=== PATIENT | male | born 1950 | race Caucasian/White ===

== ENCOUNTER 2017-08-29 13:32 | Inpatient (IN) | payer MEDICARE, BC ==
[2017-08-29] MEDS ORDERED: Cefepime 2 GM/10 ML SYR ONE (15:04)
[2017-08-29 15:17] LABS: Troponin I 0.021 ng/mL (< 0.028)
[2017-08-29] MEDS ORDERED: Diabetic Tussin 200 MG/10 ML UDCUP PO PRN (18:00)
[2017-08-29] MEDS ORDERED: Cepastat Lozenges 1 LOZ PO PRN (18:02)
[2017-08-29] MEDS ORDERED: cefTRIAXone\\ROCEPHIN 1 GM in Sodium Chloride 0.9% 100 ML IVPB SCH (18:15)
[2017-08-29] MEDS ORDERED: Ondansetron ODT 4 MG TAB PO PRN (19:47)
[2017-08-29] MEDS ORDERED: Senokot 8.6 MG TAB PO PRN (19:47)
[2017-08-29] MEDS ORDERED: Acetaminophen 325 MG TAB PO PRN (19:47)
[2017-08-29] MEDS ORDERED: Calcium Carbonate 500 MG ChewTAB PO PRN (19:47)
[2017-08-29] MEDS ORDERED: Ondansetron HCl/PF 4 MG/2 ML Vial IVP PRN (19:47)
[2017-08-29] MEDS ORDERED: Sodium Chloride 0.9% 1,000 ML IV SCH (20:00)
[2017-08-29] MEDS ORDERED: hydrALAZINE 20 MG/ML VIAL SLOW IVP PRN (20:05)
--- NOTE | 2017-08-29 20:19 | PDOC.EVN ---
Event Note - Event Note Event Note: Patient seen and examined. Orders completed. IMPRESSION: 1. Acute on Chronic Hypoxic Resp failure/Sepsis with acute organ dysfunction due to Influenza A 2. Pulm fibrosis on chronic steroids 3. Rhabdomyolysis
[2017-08-29] MEDS: guaiFENesin ER 600 MG TAB PO SCH (21:59)
[2017-08-29] MEDS: Famotidine 20 MG TAB PO SCH (21:59)
[2017-08-29] MEDS: Sodium Chloride 0.9% 1,000 ML IV SCH (21:59)
[2017-08-29] MEDS: Diabetic Tussin 200 MG/10 ML UDCUP PO PRN (22:14)
[2017-08-29] MEDS: Doxycycline 100 MG CAP PO SCH (22:14)
[2017-08-29] MEDS: Oseltamivir 75 MG CAP PO SCH (22:15)
[2017-08-29] MEDS: cefTRIAXone\\ROCEPHIN 1 GM, Syringe 0.4 ML in Sterile Water 9.6 ML SLOW IVP SCH (22:16)
[2017-08-29 22:21] VITALS: BMI 30.5
[2017-08-30] MEDS: Sodium Chloride 0.9% 1,000 ML IV SCH ×3 (05:09→20:09)
[2017-08-30 05:11] LABS: #Lymphocytes 0.8 thou/uL (1.20-3.40); #Monocytes 0.8 thou/uL (0.11-0.59); #Neutrophils 7.7 thou/uL (1.40-6.50); %Eosinophils 0.2 % (0.0-10.0); %Lymphocytes 8.7 % (21.0-51.0); %Monocytes 8.4 % (0.0-10.0); %Neutrophils 82.8 % (42.0-75.0); Hemoglobin 13.5 g/dL (14.0-18.0); Mean Corpuscular HGB CONC 31.3 g/dL (32.0-36.0); Mean Corpuscular Hemoglobin 27.6 pg (27.0-31.0); Mean Corpuscular Volume 88.4 fl (80.0-94.0); Mean Platelet Volume 8.5 fL (7.4-10.4); Platelet Count 187 thou/uL (130-400); RBC Distribution Width 15.4 % (11.5-14.5); White Blood Cell (WBC) Count 9.3 thou/uL (4.8-10.8)
[2017-08-30 05:21] LABS: ALT (SGPT) 17 U/L (8-55); AST (SGOT) 29 U/L (5-34); Albumin 3.7 g/dL (3.4-4.8); Alkaline Phosphatase 64 U/L (40-150); Anion Gap 14 mmol/L (10-20); BUN (Urea Nitrogen) 24 mg/dL (8.4-25.7); Bilirubin, Total 0.2 mg/dL (0.2-1.2); CK (CPK) 1038 U/L (30-200); Calc. Creatinine Clearance 113 mL/min (70-130); Calcium 9.3 mg/dL (7.8-10.44); Carbon Dioxide 21 mmol/L (23-31); Chloride 107 mmol/L (98-107); Estimated GFR-MDRD 78; Globulin 3.3 g/dL (2.4-3.5); Glucose 168 mg/dL (80-115); Magnesium 2.1 mg/dL (1.6-2.6); Phosphorus 2.9 mg/dL (2.3-4.7); Potassium 4.2 mmol/L (3.5-5.1); Sodium 138 mmol/L (136-145)
--- NOTE | 2017-08-30 05:54 | HP ---
DATE OF ADMISSION: 08/29/2017 The patient was seen and examined on 08/29/2017. PRIMARY CARE PHYSICIAN: Dr. Sharla Topete. PRIMARY COMMERCIAL SINGER: In [place]. CHIEF COMPLAINT: Shortness of breath. HISTORY OF PRESENT ILLNESS: The patient is a 67-year-old male with pulmonary fibrosis on 4 liter oxy gen continuously and chronic steroids, presented to the emergency room at [facility] with shortness of breath along with fever. Over the last 3-4 days, patient has generalized fatigue along with worsening shortness of breath. He also had some cough productive of thick whitish phlegm. Over the last two days, the patient has on and off fever with intermittent chills. He denies any sick contacts. No nausea, vomiting, diarrhea, dysuria, hematuria, urgency or skin rash reported. No alteration in mentation reported. In the emergency room at [place], his initial vital signs showed temperature 100.1 with a pulse rate of 122, respirations of 47 with blood pressure of 149/80 with O2 saturation of 73% on 4 liter nasal c annula. His chest x-ray was consistent with patchy perihilar airspace opacity. His Influenza testin g was positive for influenza A. He received Levaquin, Tamiflu, nebulizer treatment, Tylenol and Solu -Medrol 125 mg. Please note that his maximum temperature at the emergency room was 101.3. No blood cultures were drawn prior to antibiotics at the emergency room. PAST MEDICAL HISTORY: Pulmonary fibrosis. Per patient report, this was caused due to interaction be tween a chemotherapeutic drug for Hodgkin's lymphoma with antibiotic. PAST SURGICAL HISTORY: Inguinal hernia repair. The Hodgkins lymphoma was treated with chemotherapy, his last treatment was in 11/2016. ALLERGIES: No known drug allergies. CURRENT HOME MEDICATIONS: The patient is unable to recall all of his home medications. He takes pre dnisone 10 mg every day. SOCIAL HISTORY: Patient is a former smoker. Lives at home with his . No alcohol or drug use. He is full code. Makes his own decision. FAMILY HISTORY: Negative for premature coronary artery disease. REVIEW OF SYSTEMS: The following complete review of systems was negative, unless otherwise mentioned in the HPI or below: Constitutional: Weight loss or gain, ability to conduct usual activities. Skin: Rash, itching. Eyes: Double vision, pain. ENT/Mouth: Nose bleeding, neck stiffness, pain, tenderness. Cardiovascular: Palpitations, dyspnea on exertion, orthopnea. Respiratory: Shortness of breath, wheezing, cough, hemoptysis, fever or night sweats. Gastrointestinal: Poor appetite, abdominal pain, heartburn, nausea, vomiting, constipation, or diarr hea. Genitourinary: Urgency, frequency, dysuria, nocturia. Musculoskeletal: Pain, swelling. Neurologic/Psychiatric: Anxiety, depression. Allergy/Immunologic: Skin rash, bleeding tendency. PHYSICAL EXAMINATION: VITAL SIGNS: As discussed above. GENERAL: A 67-year-old male in mild respiratory distress, able to complete short sentences. HEENT: Head is atraumatic, normocephalic. Sclerae anicteric. Dry mucous membranes. No oral lesion . NECK: Supple, no JVD appreciated. No carotid bruit. LUNGS: Clear to auscultation bilaterally with scattered rales. There were minimal wheezing. Lungs were symmetrical. Trachea in midline. HEART: S1, S2 present. Regular rate and rhythm. Heart rate has improved. No heaves or pulsation. No significant murmurs appreciated. ABDOMEN: Soft, nontender, bowel sounds present, no rebound, guarding, no costovertebral angle tender ness. EXTREMITIES: No edema or calf tenderness. NEUROLOGIC: Grossly nonfocal, moves all four extremities. PSYCHIATRY: Alert, awake, oriented x3. SKIN: Warm and dry. LYMPH NODES: No palpable lymph nodes in the neck. PERIPHERAL VASCULAR: Radial pulses palpable bilaterally. MUSCULOSKELETAL: No joint swelling or tenderness. LABORATORY DATA AND X-RAY FINDINGS: CK was 1048. Initial troponin 0.031, repeat troponin 0.021. WB C was 16.1 with 19% bandemia. Chest x-ray by my review as discussed above. EKG by my review showed sinus tachycardia. IMPRESSION: 1. Sepsis with acute organ dysfunction secondary to influenza A. 2. Acute influenza A infection with suspected influenzae A pneumonia. 3. Hodgkin's lymphoma status post chemotherapy. 4. Pulmonary fibrosis with chronic respiratory failure on 4 liter oxygen. 5. Chronic immunosuppressants. Patient is on 10 mg prednisone on a daily basis. 6. Obesity with a BMI of 30.5. 7. Rhabdomyolysis secondary to Influenzae A infection. 8. Chronic kidney disease stage 3. 9. Elevated troponin secondary to demand ischemia. 10. Rhabdomyolysis due to influenza A. PLAN: 1. The patient will be monitored on the medical floor. There are no Intermediate Care Unit beds at this time. I think the patient has significantly improved with emergency treatment. It has been 6 h ours since he has received IV steroids. He already feels better. We will continue steroids, Tamiflu , empiric antibiotics. We will consult Dr. Fitzpatrick in a.m. We will repeat labs including CK in a.m. 2. Plan of care was discussed with the patient in detail and he stated understanding. 3. The patient will require 2-3 days for stabilization.
[2017-08-30] MEDS: Diabetic Tussin 200 MG/10 ML UDCUP PO PRN ×3 (06:07→17:50)
[2017-08-30] MEDS: Enoxaparin Sodium 40 MG/0.4 ML SYRINGE SC SCH (08:08)
[2017-08-30] MEDS: busPIRone HCl 5 MG TAB PO SCH (08:08)
[2017-08-30] MEDS: guaiFENesin ER 600 MG TAB PO SCH ×2 (08:08→20:03)
[2017-08-30] MEDS: Famotidine 20 MG TAB PO SCH ×2 (08:08→20:02)
[2017-08-30] MEDS ORDERED: Non-Formulary Item 1 EACH (Fluticasone/Vilanterol [Breo Ellipta 200-25 Mcg Inh] 1 EACH) IH SCH (09:00)
[2017-08-30] MEDS: Doxycycline 100 MG CAP PO SCH ×2 (09:10→20:02)
[2017-08-30] MEDS: Oseltamivir 75 MG CAP PO SCH ×2 (09:10→20:02)
[2017-08-30] MEDS: Mometasone/Formoterol 120 PUFF INHALER INH SCH ×2 (09:12→19:34)
[2017-08-30] MEDS ORDERED: Sodium Chloride 0.65% Nasal 44 ML BOT EA NARE PRN (11:49)
[2017-08-30] MEDS: Fluticasone Propionate Nasal Spray 16 gm Bottle NASAL SCH (14:03)
[2017-08-30] MEDS: cefTRIAXone\\ROCEPHIN 1 GM, Syringe 0.4 ML in Sterile Water 9.6 ML SLOW IVP SCH (20:03)
[2017-08-30] MEDS ORDERED: ALPRAZolam 0.25 MG TAB PO SCH (21:00)
--- NOTE | 2017-08-30 21:24 | PDOC.PN ---
- Subjective Encounter Start Date: 08/30/17 Encounter Start Time: 15:00 Patient seen and examined. Feels slightly better. Cough +. SOB on minimal exertion. No overnight events - Objective Resuscitation Status: Resuscitation Status FULL:Full Resuscitation MAR Reviewed: Yes Vital Signs & Weight: Vital Signs (12 hours) Temp Pulse Resp BP Pulse Ox 08/30/17 20:00 98.0 F 99 18 142/78 H 98 08/30/17 19:33 102 H 22 H 96 08/30/17 16:44 97.9 F 98 16 132/70 100 08/30/17 11:55 97.6 F 98 18 124/69 100 Weight Weight 231 lb 5 oz I&O: 08/29/17 08/30/17 08/31/17 06:59 06:59 06:59 Intake Total 2100 2300 Output Total 300 1150 Balance 1800 1150 Result Diagrams: 08/31/17 05:16 08/31/17 05:16 Phys Exam - Physical Examination Constitutional: NAD Respiratory: no wheezing, no rhonchi Coarse BS B/L, Symmetrical. Scat rales at bases Cardiovascular: RRR, no significant murmur, no rub no heaves/pulsations Gastrointestinal: soft, non-tender, no distention, positive bowel sounds Musculoskeletal: no edema Neurological: non-focal, normal sensation, moves all 4 limbs Psychiatric: A&O x 3 Dx/Plan - Plan DVT proph w/lovenox, DVT proph w/SCDs IMPRESSION: 1. Sepsis with acute organ dysfunction secondary to influenza A. 2. Acute influenza A infection with suspected influenzae A pneumonia. 3. Hodgkin's lymphoma status post chemotherapy. 4. Pulmonary fibrosis with chronic respiratory failure on 4 liter oxygen. 5. Chronic immunosuppressants. Patient is on 10 mg prednisone on a daily basis. 6. Obesity with a BMI of 30.5. 7. Rhabdomyolysis secondary to Influenzae A infection. 8. Chronic kidney disease stage 3. 9. Elevated troponin secondary to demand ischemia. PLAN: * Await Pulm input * Cont to monitor * AM labs * CK improving * Cont current meds as below Review of Systems - Review of Systems Cardiovascular: negative: chest pain, palpitations, orthopnea, paroxysmal nocturnal dyspnea, edema, light headedness Gastrointestinal: negative: Nausea, Vomiting, Abdominal Pain, Diarrhea, Constipation, Melena, Hematochezia - Medications/Allergies Allergies/Adverse Reactions: Allergies Allergy/AdvReac Type Severity Reaction Status Date / Time No Known Drug Allergies Allergy Verified 08/29/17 20:36 Medications: Current Medications Acetaminophen (Tylenol) 650 mg PO Q4H PRN PRN Reason: Headache/Fever or Pain Albuterol/Ipratropium (Duoneb) 3 ml NEB [id number] [facility] Last Admin: 08/30/17 19:33 Dose: 3 ml Albuterol/Ipratropium (Duoneb) 3 ml NEB [id number] PRN PRN Reason: SOB &/or Wheezing Alprazolam (Xanax) 0.25 mg PO HS [facility] Last Admin: 08/30/17 20:02 Dose: 0.25 mg Buspirone HCl (Buspar) 5 mg PO DAILY [facility] Last Admin: 08/30/17 08:08 Dose: 5 mg Calcium Carbonate (Tums) 1,000 mg PO Q4H PRN PRN Reason: Heartburn or Indigestion Diltiazem HCl (Cardizem Cd) 120 mg PO DAILY [facility] Last Admin: 08/30/17 08:08 Dose: 120 mg Doxycycline Hyclate (Vibramycin) 100 mg PO BID [facility] Last Admin: 08/30/17 20:02 Dose: 100 mg Enoxaparin Sodium (Lovenox) 40 mg SC 0900 [facility] Last Admin: 08/30/17 08:08 Dose: 40 mg Famotidine (Pepcid) 20 mg PO BID [facility] Last Admin: 08/30/17 20:02 Dose: 20 mg Fluticasone Propionate (Flonase Nasal [place]) 0 gm NASAL Q24H [facility] Last Admin: 08/30/17 14:03 Dose: 2 spr Guaifenesin (Mucinex) 600 mg PO Q12HR [facility] Last Admin: 08/30/17 20:03 Dose: 600 mg Guaifenesin (Robitussin Sf) 200 mg PO Q4H PRN PRN Reason: Cough Last Admin: 08/30/17 17:50 Dose: 200 mg Hydralazine HCl (Apresoline) 10 mg SLOW IVP Q4H PRN PRN Reason: SBP Greater Than 180 Ceftriaxone Sodium 1 gm/ (Syringe 0.4 ml/ Sterile Water) 10 mls @ 120 mls/hr SLOW IVP Q24HR [facility] Last Admin: 01/03/18 20:03 Dose: 10 mls Sodium Chloride (Normal Saline 0.9%) 1,000 mls @ 125 mls/hr IV .Q8H [facility] Last Admin: 08/30/17 20:09 Dose: 1,000 mls Methylprednisolone Sodium Succinate (Solu-Medrol) 20 mg IVP Q8HR [facility] Last Admin: 08/30/17 13:23 Dose: 20 mg Mometasone Furoate/Formoterol Fumar (Dulera 200 Mcg/5 Mcg Inhaler) 2 puff INH BID-RT [facility] Last Admin: 08/30/17 19:34 Dose: 2 puff Ondansetron HCl (Zofran Odt) 4 mg PO Q6H PRN PRN Reason: Nausea/Vomiting Ondansetron HCl (Zofran) 4 mg IVP Q6H PRN PRN Reason: Nausea/Vomiting Oseltamivir Phosphate (Tamiflu) 75 mg PO BID [facility] Stop: 09/02/17 21:01 Last Admin: 08/30/17 20:02 Dose: 75 mg Senna (Senokot) 2 tab PO HSPRN PRN PRN Reason: Constipation Sodium Chloride (Flush - Normal Saline) 10 ml IVF Q12HR [facility] Last Admin: 08/30/17 08:08 Dose: Not Given Sodium Chloride (Flush - Normal Saline) 10 ml IVF PRN PRN PRN Reason: Saline Flush Last Admin: 08/30/17 13:23 Dose: 10 ml Sodium Chloride ([place] Nasal Keystone 0.65%) 0 ml EA NARE TID PRN PRN Reason: Nasal Congestion Last Admin: 08/30/17 14:03 Dose: 2 spr Throat Lozenges (Cepastat Lozenges) 1 victorino PO Q2H PRN PRN Reason: Sore Throat
--- NOTE | 2017-08-30 23:55 | CON ---
DATE OF CONSULTATION: 08/30/2017 SERVICE: Pulmonary Medicine. REASON FOR CONSULTATION: Respiratory failure. HISTORY OF PRESENT ILLNESS: The patient is a 67-year-old white male with past medical history signif icant for lymphoma. Around that time, he had a respiratory infection. He might have also had a side effect from one of his chemotherapeutic agents. He was put on some strong antibiotics. One of thes e things potentially precipitated an event in which his lungs were replaced by scar tissue. He devel oped idiopathic pulmonary fibrosis. He is not currently on any medications for that. That being tatiana d, has been followed for the past six months and apparently he has had slow recovery of lung function . He has had multiple pulmonary function studies in the outpatient setting and based on his history, things are improving a little bit. In this setting, he had a 3-4 day history of increasing fever, c hills, cough, and rattle in the chest. His son, who is blind, was sick with a respiratory illness. His son's girlfriend, since he has been in the hospital, also came down with influenza A. Since bein g in the hospital, the patient has had a significant improvement in breathing. He indicates, he is r oughly 80% back to baseline. He is still touch more short-winded whenever he is getting around than baseline. His strength and energy have improved as has his malaise. PAST MEDICAL HISTORY: 1. Chronic hypoxic respiratory failure, requiring 4 liters oxygen continuous. 2. Pulmonary fibrosis. 3. Hodgkin's lymphoma. PAST SURGICAL HISTORY: Inguinal hernia repair. ALLERGIES: No known drug allergies. MEDICATIONS: List of inpatient medications was reviewed. I have discontinued his IV fluids. Otherw ise, a couple small adjustments were made. SOCIAL HISTORY: Negative for alcohol, tobacco or illicit drug use. He is a former smoker and has a roughly [id number] history of smoking. No illicit drug use. FAMILY HISTORY: Noncontributory. REVIEW OF SYSTEMS: General, head, ears, eyes, nose, throat, cardiovascular, respiratory, GI, , mus culoskeletal, neurologic and skin is negative except as mentioned in the HPI. PHYSICAL EXAMINATION: VITAL SIGNS: Currently afebrile. Pulse 99, blood pressure 142/78, respirations 18, saturation 98% o n 4 liters nasal cannula. GENERAL: The patient is awake and alert, in no apparent distress. He is almost continuously coughin g, but not bringing up any sputum. LUNGS: Excellent air entry. There is no prolonged expiratory phase. I do not appreciate any wheezi ng. Crackles and rhonchi are both present. HEART: Normal rate, regular. ABDOMEN: Soft, nontender, nondistended. Bowel sounds are positive. MUSCULOSKELETAL: No cyanosis or clubbing. No pitting in the bilateral lower extremities. NEUROLOGIC: Grossly nonfocal. LABORATORY DATA: WBC 9.3, hemoglobin 13.5, platelets 187,000. A pH 7.44, pCO2 of 38, pO2 176. Basi c metabolic profile and liver function studies are unremarkable. Troponin is negative x1. BNP is al so unremarkable. Blood culture x2 is negative. Influenza A is positive, B is negative. ASSESSMENT: 1. Chronic hypoxic respiratory failure. 2. Community-acquired pneumonia, secondary to influenza A. 3. Non-ST elevation myocardial infarction, likely secondary to demand. PLAN: We will deescalate his steroids. These can be reduced to his home dose after a total duration of 7 days. Tamiflu should be continued to completion. IV fluids will be discontinued as the patien t is tolerating p.o. just fine. At this point, the patient is close enough back to baseline that fro m a purely respiratory perspective, I think it would be reasonable to transition him out of the [facility] as he feels so inclined in the morning. If he remains in house, I will continue to follow.
[2017-08-31 05:40] LABS: #Monocytes 1.6 thou/uL (0.11-0.59); #Neutrophils 13.4 thou/uL (1.40-6.50); %Basophils 0.1 % (0.0-1.0); %Eosinophils 0.2 % (0.0-10.0); %Lymphocytes 6.1 % (21.0-51.0); %Monocytes 9.8 % (0.0-10.0); %Neutrophils 83.9 % (42.0-75.0); Mean Corpuscular HGB CONC 31.2 g/dL (32.0-36.0); Mean Corpuscular Hemoglobin 27.5 pg (27.0-31.0); Mean Corpuscular Volume 88.1 fl (80.0-94.0); Mean Platelet Volume 8.7 fL (7.4-10.4); Platelet Count 213 thou/uL (130-400); RBC Distribution Width 15.3 % (11.5-14.5); Red Blood Cell (RBC) Count 4.72 mill/uL (4.70-6.10); White Blood Cell (WBC) Count 15.9 thou/uL (4.8-10.8)
[2017-08-31 06:02] LABS: ALT (SGPT) 18 U/L (8-55); AST (SGOT) 32 U/L (5-34); Albumin 3.4 g/dL (3.4-4.8); Alkaline Phosphatase 69 U/L (40-150); Anion Gap 13 mmol/L (10-20); BUN (Urea Nitrogen) 26 mg/dL (8.4-25.7); Bilirubin, Total Less than 0.2 mg/dL (0.2-1.2); CK (CPK) 882 U/L (30-200); Calc. Creatinine Clearance 102 mL/min (70-130); Calcium 9.2 mg/dL (7.8-10.44); Carbon Dioxide 21 mmol/L (23-31); Chloride 114 mmol/L (98-107); Estimated GFR-MDRD 69; Globulin 3.2 g/dL (2.4-3.5); Glucose 159 mg/dL (80-115); Potassium 4.2 mmol/L (3.5-5.1); Protein, Total 6.6 g/dL (5.8-8.1); Sodium 144 mmol/L (136-145)
[2017-08-31] MEDS: Mometasone/Formoterol 120 PUFF INHALER INH SCH (07:26)
[2017-08-31] MEDS ORDERED: predniSONE 20 MG TAB PO SCH (08:00)
[2017-08-31] MEDS: busPIRone HCl 5 MG TAB PO SCH (08:24)
[2017-08-31] MEDS: Famotidine 20 MG TAB PO SCH (08:24)
[2017-08-31] MEDS: guaiFENesin ER 600 MG TAB PO SCH (08:25)
[2017-08-31] MEDS: Oseltamivir 75 MG CAP PO SCH ×2 (08:25→18:28)
[2017-08-31] MEDS: Doxycycline 100 MG CAP PO SCH (08:25)
[2017-08-31] MEDS: Enoxaparin Sodium 40 MG/0.4 ML SYRINGE SC SCH (08:26)
[2017-08-31] MEDS ORDERED: Cefdinir 300 MG CAP PO SCH (09:00)
[2017-08-31] MEDS: Fluticasone Propionate Nasal Spray 16 gm Bottle NASAL SCH (12:01)
[2017-08-31 16:27] VITALS: BP 135/74; TEMP 98
--- NOTE | 2017-08-31 17:07 | PRG ---
DATE OF SERVICE: 08/31/2017 SERVICE: Pulmonary Medicine. INTERVAL HISTORY: Mr. Rene actually feels fantastic this morning. He denies any current fevers or chills. He is coughing, but the sputum is becoming less frequent and less severe. It is breaking up a little bit more and he is finding and easier gets this stuff out. It is also clearing out a littl e bit. As such, he is interested in getting out of the hospital as soon as possible. I think it is perfectly reasonable as there was nothing that we are currently doing for him that we cannot continue in the outpatient setting. PHYSICAL EXAMINATION: VITAL SIGNS: Afebrile, pulse 101, blood pressure 107/63, respirations 20, and saturation 98% on 4 li ters nasal cannula. GENERAL: The patient is awake, alert, in no apparent distress. LUNGS: Decent air entry. There is no prolonged expiratory phase, rhonchi are much improved. Crackl es are still present. HEART: Normal rate, regular. ABDOMEN: Soft, nontender, nondistended. Bowel sounds positive. MUSCULOSKELETAL: No cyanosis or clubbing. No pitting in the bilateral lower extremities. NEUROLOGIC: Grossly nonfocal. LABORATORY DATA: WBC 15.9, hemoglobin 13.0, and platelets 213,000. Neutrophil count is stable at 84 %. Chloride 114, sodium 144. BUN 26, creatinine 1.07. Basic metabolic profile is otherwise unremar kable. Liver function studies are unremarkable and the CK is down trending. Blood cultures x2 are n egative. Influenza A is positive. ASSESSMENT: 1. Chronic hypoxic respiratory failure. 2. Community-acquired pneumonia secondary to influenza A. 3. Pulmonary fibrosis secondary to treatment (antibiotic versus chemotherapy from a treatment for ly mphoma). 4. Non-ST elevation myocardial infarction secondary to demand. PLAN: At this point, I do think it is reasonable for the patient to be transitioned home from purely respiratory perspective. Tamiflu and antibiotics can be completed for 5-day duration. He already h as a referral to see me in the outpatient setting. He is to get back into pulmonary rehabilitation j ust as soon as he clear setting his virus, which should take an additional 5-7 days.
--- NOTE | 2017-08-31 17:39 | DIS ---
DATE OF DISCHARGE: 08/31/2017 DISCHARGE DISPOSITION: Home. FOLLOWUP: 1. Follow up with primary care physician, Sharla Topete DO, in 1 week. 2. Follow up with Pulmonary, Dr. Jason in 2-3 weeks. ALLERGIES: No known drug allergies. DISCHARGE MEDICATIONS: 1. Tamiflu 75 mg b.i.d. 2. Prednisone 20 mg b.i.d. #8. Patient was advised to resume 10 mg prednisone after 4 days. 3. Omnicef 300 mg b.i.d. #10. 4. Doxycycline 100 mg b.i.d. #10. The patient was advised to resume all other home medications including Xanax, BuSpar, Cardizem-CD, in halers, nebulizer treatments, and ranitidine. 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 Jason. The patient was seen and examined on the day of discharge. Denies any new complaints. No chest pain , shortness of breath, palpitations. BRIEF HOSPITAL COURSE: Patient is a 67-year-old male with pulmonary fibrosis on 4 liter oxygen and c hronic steroids, presented to the hospital with shortness of breath. His workup in the emergency beck m was consistent with influenza A with temperature of 100.1, pulse rate of 122 with O2 saturation of 73% on 4 liter nasal cannula. Please refer to the history and physical dated 08/29/2017 for further details. The patient was admitted to the hospital with a diagnosis of sepsis with acute organ dysfunction seco ndary to influenza A with suspected influenza A pneumonia. He was started on antibiotics along with Tamiflu and IV steroids with good improvement. He was evaluated by pulmonary, Dr. Jason yesterday. He has been cleared by Dr. Jason on the day of discharge. He also had mild rhabdomyolysis with C K of 1038 on admission and 882 today. Repeat BMP with CK after 1 week is recommended. Primary care physician is advised to follow. FINAL DIAGNOSES: 1. Sepsis with acute organ dysfunction secondary to influenza A infection with suspected influenza A pneumonia. 2. Pulmonary fibrosis. 3. Chronic respiratory failure on home oxygen at 4 liters. 4. Chronic steroid use for pulmonary fibrosis. The patient is currently on 10 mg prednisone. 5. Hodgkin's lymphoma status post chemotherapy. 6. Obesity with BMI of 30.5. 7. Rhabdomyolysis, probably secondary to influenza A. 8. Chronic kidney disease stage III. 9. Elevated troponins, probably secondary to demand ischemia. Plan of care was discussed with the patient in detail. He stated understanding. Total time coordinating the discharge of this patient was 33 minutes.
[2017-09-03] MEDS ORDERED: predniSONE 20 MG TAB PO SCH (08:00)
== END 2017-08-31 18:00 | disposition home or self-care (01) | DRG 871 ==
LOC: ERS 13:32 → ERHOLD 15:06 → T4-B 19:48
PROVIDERS: ADMIT Internal Medicine; ATTEND Internal Medicine
DX: A41.89 Other specified sepsis (principal); J10.01 Influenza due to other identified influenza virus with the same other identified influenza virus pneumonia; J96.21 Acute and chronic respiratory failure with hypoxia; I24.8 Other forms of acute ischemic heart disease; M62.82 Rhabdomyolysis; J70.3 Chronic drug-induced interstitial lung disorders; Z92.21 Personal history of antineoplastic chemotherapy; Z85.71 Personal history of Hodgkin lymphoma; R65.20 Severe sepsis without septic shock; Z99.81 Dependence on supplemental oxygen; Z79.52 Long term (current) use of systemic steroids; E66.9 Obesity, unspecified; Z68.30 Body mass index [BMI] 30.0-30.9, adult; N18.3 Chronic kidney disease, stage 3 (moderate); Z87.891 Personal history of nicotine dependence
CPT/HCPCS: 36415; 80053; 82550; 83735; 84100; 85025; 94640; 94760; 96374; A4216; J0692; J0696; J1650; J2920; J7506; J7620

== ENCOUNTER 2017-10-07 10:02 | Emergency (ER) | payer MEDICARE, BC ==
[2017-10-07 10:39] LABS: #Basophils 0.1 thou/uL (0.0-0.2); #Eosinphils 0.1 thou/uL (0.0-0.7); #Lymphocytes 1.8 thou/uL (1.20-3.40); #Monocytes 1.3 thou/uL (0.11-0.59); #Neutrophils 9.9 thou/uL (1.40-6.50); %Basophils 0.5 % (0.0-1.0); %Eosinophils 0.6 % (0.0-10.0); %Lymphocytes 13.8 % (21.0-51.0); %Monocytes 9.6 % (0.0-10.0); %Neutrophils 75.5 % (42.0-75.0); Hemoglobin 13.9 g/dL (14.0-18.0); Mean Corpuscular HGB CONC 32.2 g/dL (32.0-36.0); Mean Corpuscular Hemoglobin 28.1 pg (27.0-31.0); Mean Corpuscular Volume 87.4 fl (80.0-94.0); Platelet Count 181 thou/uL (130-400); RBC Distribution Width 15.6 % (11.5-14.5); Red Blood Cell (RBC) Count 4.94 mill/uL (4.70-6.10); White Blood Cell (WBC) Count 13.1 thou/uL (4.8-10.8)
--- NOTE | 2017-10-07 10:51 | RAD ---
PORTABLE AP CHEST: Date: 10/07/17 HISTORY: Dyspnea, shortness of breath. COMPARISON: 08/29/17. FINDINGS: Cardiac silhouette and pulmonary vasculature are within normal limits. There is accentuation of the b ronchovascular markings due to the shallow depth of inspiration and portable technique. However, ther e are more peripherally located increased interstitial densities bilaterally and greater at each lung base, which also appear to have been present on the prior exam and could be related to chronic inter stitial lung changes. No consolidation or pleural fluid is seen. No other interval change. IMPRESSION: Increased interstitial densities bilaterally, which may be reflective of the shallow depth of inspira tion and portable technique. Follow-up chest x-ray with better depth of inspiration would be helpful . POS: FANG
[2017-10-07 11:03] LABS: ALT (SGPT) 17 U/L (8-55); AST (SGOT) 16 U/L (5-34); Albumin 4.1 g/dL (3.4-4.8); Alkaline Phosphatase 75 U/L (40-150); Anion Gap 13 mmol/L (10-20); BUN (Urea Nitrogen) 17 mg/dL (8.4-25.7); Bilirubin, Total 0.4 mg/dL (0.2-1.2); CK (CPK) 60 U/L (30-200); Calc. Creatinine Clearance 0 mL/min (70-130); Calcium 9.8 mg/dL (7.8-10.44); Carbon Dioxide 25 mmol/L (23-31); Chloride 102 mmol/L (98-107); Estimated GFR-MDRD 76; Globulin 3.2 g/dL (2.4-3.5); Glucose 80 mg/dL (80-115); Lipase 23 U/L (8-78); Potassium 4.1 mmol/L (3.5-5.1); Protein, Total 7.3 g/dL (5.8-8.1); Sodium 136 mmol/L (136-145)
[2017-10-07 11:06] LABS: CKMB 1.7 ng/mL (0-6.6)
--- NOTE | 2017-10-07 12:57 | CT ---
CT ANGIOGRAM THORAX WITH IV CONTRAST AND 3D RECONSTRUCTIONS: Date: 10/07/17 HISTORY: Pulmonary fibrosis, Hodgkin's lymphoma, dyspnea. Patient complains of shortness of breath and right-s ided chest pain. Patient also states he felt a lump in right axilla. FINDINGS: No filling defects are seen in the pulmonary arteries to suggest a pulmonary embolus. Atherosclerotic calcifications and mild atherosclerotic plaque is seen in the thoracic aorta, but there is no eviden ce of an aortic dissection or aneurysm. Coronary artery calcifications are seen. There is no evidence of lymphadenopathy. A marker was placed over the site of patient's palpable abno rmality in the right axilla, and no mass, fluid collection, or lymphadenopathy is seen to correspond to area of palpable concern. There are emphysematous changes within the lungs bilaterally and there are diffuse increased intersti tial opacities bilaterally, having the appearance most suggestive of chronic interstitial fibrotic anuradha ng changes. No areas of honeycombing are appreciated. No discrete pulmonary nodule or mass is identif ied. There is increased density partially seen in the visualized portions of the gallbladder lumen, probab ly related to either gallbladder sludge or gallbladder calculi. IMPRESSION: 1. No CT evidence of a pulmonary embolus. 2. Atherosclerotic vascular calcifications in the thoracic aorta and coronary arteries. 3. Chronic interstitial lung changes and evidence of COPD. 4. No abnormality is seen to correspond to the region of palpable concern in the right axillary salome on. 5. Low density nodule in the right lobe of the thyroid gland measuring 11.0 mm. This can be further evaluated with nonemergent thyroid ultrasound examination. POS: FANG
[2017-10-07] MEDS ORDERED: ISOVUE-370 76%-LOCM 1 ML ONE (16:46)
--- NOTE | 2017-10-21 20:21 | EKG ---
Test Reason : SOB Blood Pressure : / mmHG Vent. Rate : 085 BPM Atrial Rate : 085 BPM P-R Int : 154 ms QRS Dur : 084 ms QT Int : 358 ms P-R-T Axes : 057 012 033 degrees QTc Int : 426 ms Normal sinus rhythm Normal ECG Confirmed by TRANG REZA MD ([id number]), image editor ARISTEO PITTS ([id number]) on 10/21/2017 8:20:29 PM Referred By: Confirmed By:TRANG REZA MD
== END 2017-10-07 12:00 | disposition home or self-care (01) ==
LOC: ERS 10:02
DX: B02.9 Zoster without complications (principal); J84.10 Pulmonary fibrosis, unspecified; Z99.81 Dependence on supplemental oxygen; Z87.891 Personal history of nicotine dependence; Z79.899 Other long term (current) drug therapy; Z79.82 Long term (current) use of aspirin
CPT/HCPCS: 36415; 71045; 71275; 80053; 82553; 83605; 83690; 83880; 84484; 85025; 87040; 87149; 87804; 93005

== ENCOUNTER 2017-10-27 16:41 | Inpatient (IN) | payer MEDICARE, BC ==
[~2017-10-27 16:41] MED LIST: ISOVUE-370 76%-LOCM 1 ML ONE
[2017-10-27] MEDS ORDERED: Lorazepam 2 MG/ML VIAL ONE (18:28)
[2017-10-27 19:11] LABS: #Lymphocytes 0.4 thou/uL (1.20-3.40); #Monocytes 0.1 thou/uL (0.11-0.59); %Eosinophils 0.4 % (0.0-10.0); %Monocytes 1.8 % (0.0-10.0); %Neutrophils 92.8 % (42.0-75.0); Hemoglobin 13.6 g/dL (14.0-18.0); Mean Corpuscular HGB CONC 32.3 g/dL (32.0-36.0); Mean Corpuscular Hemoglobin 28.5 pg (27.0-31.0); Mean Corpuscular Volume 88.3 fl (80.0-94.0); Mean Platelet Volume 8.1 fL (7.4-10.4); Platelet Count 180 thou/uL (130-400); RBC Distribution Width 15.8 % (11.5-14.5); Red Blood Cell (RBC) Count 4.76 mill/uL (4.70-6.10); White Blood Cell (WBC) Count 7.6 thou/uL (4.8-10.8)
[2017-10-27 19:33] LABS: Actual Bicarbonate (HCO3a) 23.3 mEq/L (22-26); CO2 Tension 37.8 mmHg (35.0-45.0); Hematocrit-ABG 43.2 % (42.0-52.0); Hemoglobin (Hb) 12.7 g/dL (14.0-18.0); O2 Tension (PaO2) 67.3 mmHg (80.0-100.0); pH, Arterial 7.41 (7.35-7.45)
[2017-10-27 19:36] LABS: Analyzer IN Cardio ER; Calcium, Ionized 1.2 mmol/L (1.12-1.30); Puncture Site RR
[2017-10-27 19:37] LABS: ALT (SGPT) 23 U/L (8-55); AST (SGOT) 22 U/L (5-34); Albumin 3.9 g/dL (3.4-4.8); Alkaline Phosphatase 64 U/L (40-150); Anion Gap 16 mmol/L (10-20); BUN (Urea Nitrogen) 13 mg/dL (8.4-25.7); Bilirubin, Total 0.2 mg/dL (0.2-1.2); Calc. Creatinine Clearance 0 mL/min (70-130); Calcium 9.1 mg/dL (7.8-10.44); Carbon Dioxide 19 mmol/L (23-31); Chloride 105 mmol/L (98-107); Estimated GFR-MDRD 85; Globulin 3.3 g/dL (2.4-3.5); Glucose 131 mg/dL (80-115); Lipase 13 U/L (8-78); Magnesium 2.3 mg/dL (1.6-2.6); Potassium 3.8 mmol/L (3.5-5.1); Protein, Total 7.2 g/dL (5.8-8.1); Sodium 136 mmol/L (136-145)
[2017-10-27 19:41] LABS: Troponin I Less than 0.010 ng/mL (< 0.028)
--- NOTE | 2017-10-27 22:51 | CT ---
CT ANGIOGRAM THORAX WITH IV CONTRAST AND 3D RECONSTRUCTIONS 10/27/17 HISTORY: Shortness of breath and congestion that started one day ago. Fever and chills. COMPARISON: 10/07/17. FINDINGS: There is suboptimal opacification of the pulmonary arteries due to timing of the contrast bolus. As t he result pulmonary embolus cannot be excluded based on this exam. The thoracic aorta is normal in caliber without evidence of an aortic dissection. There are vascular calcifications and atherosclerotic plaque seen within the coronary arteries as well as the thoracic a cyndee. Again noted are emphysematous changes within the lungs bilaterally as well as chronic interstitial anuradha ng changes similar to the prior study. There is no pleural fluid, and no discrete pulmonary nodule o r mass is appreciated. There is no evidence of lymphadenopathy. Visualized upper abdomen has a normal CT appearance. There is increased density in the T8 vertebral body which demonstrates characteristics most compatibl e with a hemangioma. No additional lytic or sclerotic osseous lesions are appreciated. IMPRESSION: 1. Suboptimal evaluation of the pulmonary arteries due to timing of the contrast bolus. A pulmon aleksander embolus cannot be excluded based on this exam. 2. Thoracic aorta is normal in caliber without evidence of an aortic dissection. Atherosclerotic vascular calcifications and plaque is present. Left vertebral artery arises from thoracic aorta, and there appears to be severe narrowing at the origin and proximally. 3. Chronic interstitial lung changes and evidence of COPD unchanged from prior study. POS: FANG
[2017-10-27 22:56] LABS: pH, Arterial 7.38 (7.35-7.45)
[2017-10-27 22:57] LABS: Base Excess (BEa) -1.9 mEq/L (0 (+/-) 2.5); CO2 Tension 40.1 mmHg (35.0-45.0); Hematocrit-ABG 44.5 % (42.0-52.0); Hemoglobin (Hb) 13.4 g/dL (14.0-18.0); O2 Tension (PaO2) 97.9 mmHg (80.0-100.0)
[2017-10-27 22:58] LABS: Analyzer IN Cardio ER; Calcium, Ionized 1.2 mmol/L (1.12-1.30); Puncture Site RR
[2017-10-28] MEDS ORDERED: Lorazepam 2 MG/ML VIAL SLOW IVP PRN (00:51)
[2017-10-28] MEDS ORDERED: Ondansetron HCl/PF 4 MG/2 ML Vial IVP PRN ×2 (00:52→00:59)
[2017-10-28] MEDS ORDERED: Acetaminophen 325 MG TAB PO PRN (00:52)
[2017-10-28] MEDS ORDERED: Ondansetron ODT 4 MG TAB SL PRN (00:52)
[2017-10-28] MEDS ORDERED: Milk Of Magnesia 30 ML UDCUP PO PRN (00:59)
[2017-10-28] MEDS ORDERED: Loperamide HCl 2 MG CAP PO PRN (00:59)
[2017-10-28] MEDS ORDERED: Senokot 8.6 MG TAB PO PRN (00:59)
[2017-10-28] MEDS ORDERED: HYDROcodone/Acetaminophen 5/325 mg Tablet PO PRN (00:59)
[2017-10-28] MEDS ORDERED: Mag-Al 1200 mg/1200 mg/30 ML UDCUP PO PRN (00:59)
[2017-10-28] MEDS ORDERED: Sodium Chloride 0.45% 1,000 ML IV SCH (01:00)
[2017-10-28] MEDS ORDERED: methylPREDNISolone Sod Succ/PF 125 MG/2 ML VIAL IVP SCH (01:00)
[2017-10-28 01:15] VITALS: BMI 30.9
[2017-10-28 04:34] LABS: #Lymphocytes 0.9 thou/uL (1.20-3.40); #Monocytes 0.1 thou/uL (0.11-0.59); #Neutrophils 3.1 thou/uL (1.40-6.50); %Basophils 0.2 % (0.0-1.0); %Eosinophils 0.5 % (0.0-10.0); %Lymphocytes 21.5 % (21.0-51.0); %Monocytes 2.6 % (0.0-10.0); %Neutrophils 75.2 % (42.0-75.0); Hemoglobin 12.8 g/dL (14.0-18.0); Mean Corpuscular HGB CONC 31.9 g/dL (32.0-36.0); Mean Corpuscular Hemoglobin 28.6 pg (27.0-31.0); Mean Corpuscular Volume 89.7 fl (80.0-94.0); Mean Platelet Volume 8.5 fL (7.4-10.4); Platelet Count 173 thou/uL (130-400); RBC Distribution Width 15.6 % (11.5-14.5); Red Blood Cell (RBC) Count 4.47 mill/uL (4.70-6.10); White Blood Cell (WBC) Count 4.1 thou/uL (4.8-10.8)
[2017-10-28 05:09] LABS: Anion Gap 11 mmol/L (10-20); BUN (Urea Nitrogen) 14 mg/dL (8.4-25.7); Calc. Creatinine Clearance 135 mL/min (70-130); Calcium 8.7 mg/dL (7.8-10.44); Carbon Dioxide 24 mmol/L (23-31); Chloride 107 mmol/L (98-107); Estimated GFR-MDRD Greater than 90; Glucose 126 mg/dL (80-115); Potassium 4.4 mmol/L (3.5-5.1); Sodium 138 mmol/L (136-145)
[2017-10-28] MEDS: methylPREDNISolone Sod Succ/PF 125 MG/2 ML VIAL IVP SCH ×2 (05:53→11:38)
--- NOTE | 2017-10-28 06:22 | HP ---
PRIMARY CARE PHYSICIAN: Sharla Topete D.O. REASON FOR ADMISSION: Acute on chronic hypoxic respiratory failure. HISTORY OF PRESENT ILLNESS: A 67-year-old male who has diagnosis of interstitial lung disease/pulmon aleksander fibrosis which was diagnosed last year in January/February. Patient was requiring at least 3-4 liters o f oxygen at home, but lately even he was using 6 liters of oxygen and his saturation was not improvin g, he was getting breathing treatment by himself at home without any significant improvement. He was feeling more and more shortness of breath. He was having difficulty talking as well because of shor tness of breath. Patient does have some low grade fever. Patient denies any pleuritic chest pain. He denies any sick exposures. He denies any flu-like illness. He denies any recent travel. He denies any lower extre mity edema or calf tenderness. He denies any hemoptysis. Patient has a diagnosis of pulmonary fibrosis because of interaction from chemotherapy for Hodgkin's lymphoma last year. The patient denies any UTI symptoms. He denies any constipation, diarrhea, amena na or hematochezia. ALLERGIES: No known drug allergy. CURRENT HOME MEDICATIONS: Aspirin 81 mg p.o. daily, Breo Ellipta one inhalation twice daily, prednis one 10 mg daily, buspirone 5 mg p.o. daily, azelastine nasal spray daily, Cardizem 120 two tablets da bismark, Xanax 0.25 mg twice daily, Zantac 150 mg p.o. daily, valacyclovir 500 mg p.o. daily. REVIEW OF SYSTEMS: The following complete review of systems was negative, unless otherwise mentioned in the HPI or below: Constitutional: Weight loss or gain, ability to conduct usual activities. Skin: Rash, itching. Eyes: Double vision, pain. ENT/Mouth: Nose bleeding, neck stiffness, pain, tenderness. Cardiovascular: Palpitations, dyspnea on exertion, orthopnea. Respiratory: Shortness of breath, wheezing, cough, hemoptysis, fever or night sweats. Gastrointestinal: Poor appetite, abdominal pain, heartburn, nausea, vomiting, constipation, or diarr hea. Genitourinary: Urgency, frequency, dysuria, nocturia. Musculoskeletal: Pain, swelling. Neurologic/Psychiatric: Anxiety, depression. Allergy/Immunologic: Skin rash, bleeding tendency. Please see my HPI for pertinent positive and negative. All other review of systems reviewed and nega tive except as mentioned in the HPI. PAST MEDICAL HISTORY: Congestive heart failure, EF not known, pulmonary fibrosis, Hodgkin's lymphoma , osteoarthritis, chronic respiratory failure with hypoxia on home oxygen. PAST SURGICAL HISTORY: Hodgkin's lymphoma treated with chemotherapy and left-sided inguinal hernia r epair. PAST PSYCHIATRIC HISTORY: Anxiety disorder. SOCIAL HISTORY: Patient is . He lives at home with his . He is a former smoker, but he quit smoking lately. He denies any alcohol abuse. He denies any other illicit drug abuse. FAMILY HISTORY: No strong family history of premature coronary artery disease, stroke or cancer. EMERGENCY ROOM COURSE: Patient is given Levaquin 750 mg, sodium chloride 1 liter and Ativan 1 mg IV. PHYSICAL EXAMINATION: VITAL SIGNS: On arrival, blood pressure 155/89, pulse 112, respiratory rate 35, temperature 98.8, sa turation 93% on 4 liter oxygen, weight 105.2 kilograms. GENERAL: The patient is currently alert, awake, no obvious acute distress. Patient requiring BiPAP to maintain oxygen saturation. HEAD: Normocephalic, atraumatic. EYES: Pupils round, reactive to light. Extraocular muscle intact. ENT: Oropharynx within normal limits. Moist mucous membranes. No oral lesion, no pharyngeal erythe ma, no exudate. NECK: Supple, no JVD, no thyromegaly, no carotid bruit, no jugular venous distention. LUNGS: Bibasilar coarse breath sound heard. CARDIAC: S1 and S2 regular, tachycardia, no murmur, no gallop, no rub. ABDOMEN: Soft, bowel sounds present, nontender, nondistended. No organomegaly, no mass, no suprapub ic tenderness. BACK: Examination unremarkable, no CVA tenderness. EXTREMITIES: Upper extremity passive movements of all joints are normal. Lower extremities: No jaswant ma. Good peripheral pulsation. SKIN: No skin rash. HEMATOLOGICAL SYSTEM: No lymphadenopathy. PSYCHIATRIC: Normal affect. NEUROLOGIC: Nonfocal examination. IMAGING DATA AND SIGNIFICANT LABORATORY DATA: 1. Chest x-ray showing pulmonary vascular congestion by chronic changes. 2. EKG showing sinus rhythm. 3. CT angio negative for pulmonary embolism. 4. CBC: WBC 4.1, hemoglobin 12.8, platelet 173. D-dimer 0.46. 5. ABG: pH 7.41, pO2 37.8, pCO2 67.3, saturation 95.2, bicarbonate 23.3. 6. BMP: Sodium 136, potassium 3.8, chloride 105, carbon dioxide 19, BUN 13, creatinine 0.90, glucos e 131, calcium 9.1, magnesium 2.3. 7. LFT: AST 22, ALT 23, alkaline phosphatase 64, albumin 3.9, lipase 13, CK-MB 1.0, troponin I less than 0.010, BNP 22.9. 8. Influenza A and B negative. ASSESSMENT AND PLAN/IMPRESSION: 1. Acute on chronic respiratory failure with hypoxia. 2. Interstitial lung disease exacerbation. 3. Hypertension. 4. Anxiety/depression. 5. Gastroesophageal reflux disease. 6. Elevated D-dimer, but negative for pulmonary embolism. 7. Obesity. 8. History of Hodgkin's lymphoma. 9. Plan, admission to [facility] for BiPAP. Pulmonary consultation with Dr. Jason, Solu-Medrol 40 mg IV q.6 hourly, Mucinex 600 mg 3 times daily, DuoNeb therapy, empiric antibiotic therapy with levofloxac in. 10. Pulmonary function test. 11. Deep venous thrombosis prophylaxis with Lovenox 40 mg subcutaneously daily. 12. Gastrointestinal prophylaxis with Pepcid 20 mg IV b.i.d. 13. Code status: The patient is FULL CODE. The patient's is surrogate decision maker. Disposition plan based on clinical course. We are expecting patient's stay in hospital more than 2 m idnights. Plan of care discussed with the patient and family member at bedside in the emergency room .
[2017-10-28] MEDS: guaiFENesin ER 600 MG TAB PO SCH ×3 (07:26→20:12)
[2017-10-28] MEDS: Enoxaparin Sodium 40 MG/0.4 ML SYRINGE SC SCH (07:26)
[2017-10-28] MEDS ORDERED: FLU VACC TS2017-18 (>65YR) 0.5 ML SYRINGE IM ONE (09:00)
[2017-10-28] MEDS ORDERED: Prevnar 13-Val Conj/PF 0.5 ML SYRINGE IM ONE (09:00)
[2017-10-28] MEDS ORDERED: Famotidine/PF 20 mg/2ml Vial SLOW IVP SCH (09:00)
--- NOTE | 2017-10-28 14:18 | PDOC.PN ---
- Subjective Encounter Start Date: 10/28/17 Encounter Start Time: 14:15 Subjective: seen and examined feeling a little bit better - Objective Resuscitation Status: Resuscitation Status FULL:Full Resuscitation Vital Signs & Weight: Vital Signs (12 hours) Temp Pulse Resp BP Pulse Ox 10/28/17 11:20 97.7 F 96 24 H 138/72 98 10/28/17 08:25 95 10/28/17 08:22 90 12 10/28/17 07:16 97.7 F 83 22 H 94 L 10/28/17 07:15 97.7 F 83 22 H 142/84 H 94 L 10/28/17 04:05 97.7 F 91 21 H 144/78 H 96 Weight Weight 234 lb I&O: 10/27/17 10/28/17 10/29/17 06:59 06:59 06:59 Intake Total 800 460 Output Total 1000 Balance -200 460 Result Diagrams: 10/28/17 03:55 10/28/17 03:55 Phys Exam - Physical Examination Constitutional: NAD HEENT: PERRLA, moist MMs, sclera anicteric, TM's clear Neck: no nodes, no JVD, supple, full ROM Respiratory: wheezing present Cardiovascular: RRR, no significant murmur, no rub Gastrointestinal: soft, non-tender, no distention, positive bowel sounds Musculoskeletal: no edema, pulses present Dx/Plan (1) COPD exacerbation Code(s): J44.1 - CHRONIC OBSTRUCTIVE PULMONARY DISEASE W (ACUTE) EXACERBATION Status: Acute (2) Interstitial lung disease Code(s): J84.9 - INTERSTITIAL PULMONARY DISEASE, UNSPECIFIED Status: Acute (3) Respiratory failure with hypoxia Code(s): J96.91 - RESPIRATORY FAILURE, UNSPECIFIED WITH HYPOXIA Status: Acute (4) Hypertension Code(s): I10 - ESSENTIAL (PRIMARY) HYPERTENSION Status: Acute (5) Obesity Code(s): E66.9 - OBESITY, UNSPECIFIED Status: Acute (6) Anxiety and depression Code(s): F41.8 - OTHER SPECIFIED ANXIETY DISORDERS Status: Acute - Plan plan discussed w/ family, continue antibiotics, PT/OT, director of social services, respiratory therapy Awaiting pulmonary input -: will continue steroids and nebs * .
[2017-10-28] MEDS ORDERED: Furosemide 20 MG/2 ML VIAL SLOW IVP SCH (17:45)
--- NOTE | 2017-10-28 18:04 | CON ---
DATE OF CONSULTATION: 10/28/2017 SERVICE: Pulmonary Medicine. REASON FOR CONSULTATION: Respiratory failure. HISTORY OF PRESENT ILLNESS: The patient is a 67-year-old white male with past medical history significant for COPD and interstitial lung disease. He was in his usual state of health until roughly 4-5 days prior to admission. He started having dyspnea on exertion. It was waking him up from the sleep. He would sit up on the side of the bed and after 30-45 minutes, this would resolve. He will go back to bed and it would occur again a couple of hours later. This started having increasing severity. He started having dyspnea on exertion during the daytime. Ultimately, he started having severe shortness of breath and blueness to his fingers and lips. He presented to the Emergency Department and was discovered to be hypoxemic. He was put on BiPAP and within 45 minutes, he felt much improved. He has been on a BiPAP break all day and has not had any additional shortness of breath. He has a little bit of conversational dyspnea that creeps in, but after he takes a couple of breath through his nose, he slows down and feels much improved. He currently denies any fevers, chills, nausea or vomiting. He is not coughing up any sputum. Otherwise, he feels like he has actually returned to his usual state of health and would prefer to get out of the hospital. He has had a similar presentation that really responded nicely to a small dose of Lasix. PAST MEDICAL HISTORY: 1. Pulmonary fibrosis secondary to medications for Hodgkin lymphoma. 2. Hodgkin lymphoma. 3. Osteoarthritis. 4. Chronic hypoxic respiratory failure. 5. Chronic heart failure. PAST SURGICAL HISTORY: Left-sided inguinal hernia repair. FAMILY HISTORY: Noncontributory. SOCIAL HISTORY: He is and lives at home with his . He has a greater than [id number] history of smoking, but quit over 2 years ago. He denies any alcohol or illicit drug use and has no exposure to chemicals, dust, asbestos or tuberculosis. ALLERGIES: No known drug allergies. MEDICATIONS: List of his inpatient medications were reviewed. There are no specific updates made at this time. REVIEW OF SYSTEMS: General, head, ears, eyes, nose, throat, cardiovascular, respiratory, GI, , musculoskeletal, neurologic and skin is negative except as mentioned in the HPI. PHYSICAL EXAMINATION: VITAL SIGNS: Afebrile, pulse 111, blood pressure 143/73, respirations 22 and saturation 96% on 4 liters nasal cannula. GENERAL: The patient is awake and alert. He is in no apparent distress. LUNGS: Excellent air entry with minimal prolongation of the expiratory phase. There is a little bit of wheezing present, but the crackles predominate. No rhonchi are appreciated. HEART: Normal rate and regular. ABDOMEN: Soft, nontender and nondistended. Bowel sounds are positive. MUSCULOSKELETAL: No cyanosis or clubbing. There is trace pitting in the bilateral lower extremities. NEUROLOGIC: Grossly nonfocal. LABORATORY DATA: Comprehensive metabolic profile is unremarkable. BNP and troponin are negative. Lactate is normal. CBC is essentially unremarkable with a hemoglobin of 12.8 and platelets of 173,000. Neutrophil count is 75% and has returned to normal. D-dimer 0.46. ABG was essentially unremarkable on 2 separate occasions and the P/F ratio dramatically improved over a brief period of time. Influenza A and B is unremarkable. IMAGING DATA: CTA of the chest demonstrates no evidence of a PE, although the timing of the contrast bolus was poor. That being said, there is no acute cardiopulmonary abnormality identified other than chronic changes of interstitial lung disease, likely superimposed on some degree of COPD. The increased interstitial changes could be associated with edema as well. ASSESSMENT: 1. Acute on chronic hypoxic respiratory failure with no evidence of hypercapnia. 2. Acute pulmonary fibrosis secondary to treatment (antibiotic versus chemotherapy from treatment for lymphoma). 3. Acute on chronic diastolic heart failure, suspected. DISCUSSION AND PLAN: We are going to perform an echocardiogram. I will give the patient a couple doses of Lasix. I really do not think that this is associated with acute infectious process or goodwill representative of his chronic obstructive pulmonary disease exacerbation. We will continue to follow him very closely and over the next 24 hours, if he continues to make improvements, we will consider him for transition out of the hospital. I will deescalate his steroids and switch his antibiotics over to p.o. This can be limited to a 5- day course. Pulmonary Critical Care will continue to follow while patient remains in house. 70 minutes have been devoted to this patient in various activities. I personally reviewed all imaging studies and laboratory data noted within this document. For greater than fifty percent of this time, I was interacting with the patient at the bedside or coordinating care with the care team. For the remainder of the time I was immediately available to the patient in the hospital unit. MAXIMINO
[2017-10-29] MEDS: Acetaminophen 325 MG TAB PO PRN (01:33)
[2017-10-29 05:10] LABS: Anion Gap 13 mmol/L (10-20); BUN (Urea Nitrogen) 26 mg/dL (8.4-25.7); Calc. Creatinine Clearance 108 mL/min (70-130); Calcium 9.5 mg/dL (7.8-10.44); Carbon Dioxide 25 mmol/L (23-31); Chloride 106 mmol/L (98-107); Estimated GFR-MDRD 73; Glucose 142 mg/dL (80-115); Magnesium 2.5 mg/dL (1.6-2.6); Potassium 4.6 mmol/L (3.5-5.1); Sodium 139 mmol/L (136-145)
[2017-10-29] MEDS: Furosemide 20 MG/2 ML VIAL SLOW IVP SCH (09:13)
[2017-10-29] MEDS: Enoxaparin Sodium 40 MG/0.4 ML SYRINGE SC SCH (09:13)
[2017-10-29] MEDS: guaiFENesin ER 600 MG TAB PO SCH ×3 (09:13→20:12)
[2017-10-29] MEDS: predniSONE 20 MG TAB PO SCH (09:13)
--- NOTE | 2017-10-29 09:54 | PDOC.PN ---
- Subjective Encounter Start Date: 10/29/17 Encounter Start Time: 09:52 CC: Dyspnea Sub: Pt denies dyspnea, breathing improving - Objective Resuscitation Status: Resuscitation Status FULL:Full Resuscitation Vital Signs & Weight: Vital Signs (12 hours) Temp Pulse Resp BP Pulse Ox 10/29/17 08:44 99 10/29/17 08:43 91 12 10/29/17 07:45 97.7 F 96 24 H 131/74 97 10/29/17 04:03 98.0 F 88 21 H 137/78 97 10/29/17 00:39 97 10/28/17 23:40 98.6 F 97 20 127/75 97 Weight Weight 234 lb I&O: 10/28/17 10/29/17 10/30/17 06:59 06:59 06:59 Intake Total 800 3330 Output Total 1000 2700 Balance -200 630 Result Diagrams: 10/28/17 03:55 10/29/17 04:03 Dx/Plan - Plan Constitutional: NAD HEENT: PERRLA, moist MMs, sclera anicteric, TM's clear Neck: no nodes, no JVD, supple, full ROM Respiratory: wheezing present Cardiovascular: RRR, no significant murmur, no rub Gastrointestinal: soft, non-tender, no distention, positive bowel sounds Musculoskeletal: no edema, pulses present Dx/Plan (1) ACute pulmonary fibrosis + COPD Code(s): J44.1 - CHRONIC OBSTRUCTIVE PULMONARY DISEASE W (ACUTE) EXACERBATION Status: Acute (2) Interstitial lung disease Code(s): J84.9 - INTERSTITIAL PULMONARY DISEASE, UNSPECIFIED Status: Acute (3) Respiratory failure with hypoxia Code(s): J96.91 - RESPIRATORY FAILURE, UNSPECIFIED WITH HYPOXIA Status: Acute (4) Hypertension Code(s): I10 - ESSENTIAL (PRIMARY) HYPERTENSION Status: Acute (5) Obesity Code(s): E66.9 - OBESITY, UNSPECIFIED Status: Acute (6) Anxiety and depression Code(s): F41.8 - OTHER SPECIFIED ANXIETY DISORDERS Status: Acute - Plan Continue breathing treatments and levaquin Pulmonary on board. Monitor respiratory status closely currently on po prednisone contineu nasal canula Monitor bp closely will add lovenox for dvt prophylaxis Appeciate pulmonary input case d/w pt & RN
--- NOTE | 2017-10-29 14:24 | PRG ---
DATE OF SERVICE: 10/29/2017 SERVICE: Pulmonary Medicine. INTERVAL HISTORY: The patient is doing outstanding from a cardiovascular and respiratory standpoint. He denies any current fevers, chills, nausea, vomiting or chest discomfort. Otherwise, there has b een no interval change to his condition. His breathing is much improved. He no longer has conversat ional dyspnea. This is all with basically just Lasix yesterday. PHYSICAL EXAMINATION: VITAL SIGNS: Afebrile, pulse 95, blood pressure 137/80, respirations 18, saturation 97% on 4 liters nasal cannula. GENERAL: The patient is awake, alert, no apparent distress. LUNGS: Excellent air entry with no prolonged expiratory phase, wheezing, or rhonchi. Crackles are p resent throughout bibasilar regions. Anteriorly, they are completely resolved. GENITOURINARY: No Tobar. NEUROLOGIC: Grossly nonfocal. LABORATORY DATA: Basic metabolic profile is completely unremarkable except for BUN of 26, creatinine of 1.02, bicarbonate 25 and roughly stable. Magnesium is normal. Influenza A and B is unremarkable . ASSESSMENT: 1. Acute on chronic hypoxic respiratory failure with no evidence of hypercapnia. 2. Pulmonary fibrosis, secondary to previous treatment with chemotherapy for lymphoma. 3. Acute on chronic diastolic heart failure suspected. DISCUSSION AND PLAN: The patient remains stable from a cardiovascular and respiratory perspective. He can be transitioned to the medical unit. I will continue to diurese him tomorrow morning. Based on laboratories at that time, if he is feeling better, he can be considered for transition home. Ech ocardiogram is currently pending. I am doing this just to verify the patient does not have any signi ficant systolic dysfunction.
[2017-10-30 04:55] LABS: Anion Gap 13 mmol/L (10-20); BUN (Urea Nitrogen) 30 mg/dL (8.4-25.7); Calc. Creatinine Clearance 120 mL/min (70-130); Calcium 9.2 mg/dL (7.8-10.44); Carbon Dioxide 25 mmol/L (23-31); Chloride 105 mmol/L (98-107); Estimated GFR-MDRD 83; Glucose 115 mg/dL (80-115); Magnesium 2.3 mg/dL (1.6-2.6); Potassium 4.4 mmol/L (3.5-5.1); Sodium 139 mmol/L (136-145)
[2017-10-30 07:31] VITALS: BP 137/80; TEMP 97.8
[2017-10-30] MEDS: predniSONE 20 MG TAB PO SCH (08:03)
[2017-10-30] MEDS: Furosemide 20 MG/2 ML VIAL SLOW IVP SCH (08:03)
[2017-10-30] MEDS: Enoxaparin Sodium 40 MG/0.4 ML SYRINGE SC SCH (08:03)
[2017-10-30] MEDS: guaiFENesin ER 600 MG TAB PO SCH ×2 (08:04→14:19)
[2017-10-30] MEDS: Acetaminophen 325 MG TAB PO PRN (11:34)
--- NOTE | 2017-10-30 15:30 | PRG ---
DATE OF SERVICE: 10/30/2017 SERVICE: Pulmonary Medicine. INTERVAL HISTORY: The patient is doing fine from a respiratory standpoint. He indicates that he is breathing comfortably. He has no specific complaints of nausea, vomiting, fevers or chills. Otherwi se, there has been no interval change to his condition. PHYSICAL EXAMINATION: VITAL SIGNS: Afebrile, pulse 91, blood pressure 137/80, respirations 14, saturation 96% on 3 liters nasal cannula. GENERAL: The patient is awake, alert, no apparent distress. LUNGS: Excellent air entry. Slightly prolonged expiratory phase. There is large airway wheezing th roughout both inspiration and expiration. Change with cough a little bit. Dependent crackles are pr esent. HEART: Normal rate, regular. ABDOMEN: Soft, nontender, nondistended. Bowel sounds are positive. MUSCULOSKELETAL: No cyanosis or clubbing. There is no pitting. Minimal tenting is present. GENITOURINARY: No Tobar. NEUROLOGIC: Grossly nonfocal. LABORATORY DATA: BUN 30, creatinine 0.92, magnesium 2.3. Basic metabolic profile is otherwise unrem arkable. IMAGING: Echocardiogram demonstrates 50% to 55% ejection fraction, normal right ventricular size and function, normal left atrium, and right atrium. Trace mitral regurgitation, aortic valve leaflets a re not clearly identified. ASSESSMENT: 1. Acute on chronic hypoxic respiratory failure with no evidence of hypercapnia. 2. Pulmonary fibrosis secondary to previous treatment with chemotherapy for lymphoma. 3. Acute on chronic diastolic heart failure, suspected. PLAN: The patient remains stable at this time. From my perspective, he can be transitioned home. Babatunde torres will give the patient laboratory holiday tomorrow morning. Echocardiogram was not consistent with any significant pathology. There was no comment on diastolic function.
--- NOTE | 2017-10-31 10:04 | DIS ---
DATE OF DISCHARGE: 10/30/2017 DISCHARGE DISPOSITION: Home. FOLLOWUP: Follow up with primary care physician, Dr. Sharla Topete in 1 week. Follow up with Dr. Jason in 2 weeks. ALLERGIES: No known drug allergies. The patient was seen and examined on the day of discharge. Denies any new complaints, no chest pain, shortness of breath, or palpitations. DISCHARGE MEDICATIONS: 1. Prednisone taper. The patient was advised to resume prednisone 10 mg daily after Prednisone tape r. 2. Levaquin 500 mg daily. 3. Other home medications were resumed. BRIEF HOSPITAL COURSE: The patient is a 67-year-old male with pulmonary fibrosis on chronic oxygen a nd steroids, presented to the hospital with shortness of breath. Please refer to the history and phy sical dated 10/28/2017 for further details. The patient was admitted to the hospital with a diagnosis of acute on chronic hypoxic respiratory lexis lure secondary to interstitial lung disease exacerbation with suspected pneumonia. A chest x-ray was , however, negative for infiltrate. A CT angiogram of the chest in the emergency room was negative f or pulmonary embolism. The contrast bolus timing was suboptimal. He also underwent an echocardiogra m that showed normal ejection fraction of 55%-60%. Patient was evaluated by Pulmonary, Dr. Jason. He is saturating 96% on 3 liter nasal cannula. Patient has been cleared for discharge by Pulmonary. FINAL DIAGNOSES: 1. Acute on chronic hypoxic respiratory failure. 2. Interstitial lung disease exacerbation. 3. Suspected pneumonia, questionable pneumococcal. Patient will continue Levaquin. 4. Hodgkin's lymphoma status post chemotherapy. 5. Obesity with a body mass index of 30.9. 6. Chronic kidney disease stage 3. 7. History of Influenzae A in August of this year. 8. Suspected acute on chronic diastolic heart failure. Plan of care was discussed with the patient in detail. He stated understanding.
== END 2017-10-30 18:05 | disposition home or self-care (01) | DRG 205 ==
LOC: ERS 16:41 → IMCU/EMU 22:56 → T4-A 10-29 17:59
PROVIDERS: ADMIT Internal Medicine; ATTEND Internal Medicine
DX: J70.3 Chronic drug-induced interstitial lung disorders (principal); J96.21 Acute and chronic respiratory failure with hypoxia; I50.33 Acute on chronic diastolic (congestive) heart failure; C81.90 Hodgkin lymphoma, unspecified, unspecified site; I13.0 Hypertensive heart and chronic kidney disease with heart failure and stage 1 through stage 4 chronic kidney disease, or unspecified chronic kidney disease; F41.9 Anxiety disorder, unspecified; F32.9 Major depressive disorder, single episode, unspecified; K21.9 Gastro-esophageal reflux disease without esophagitis; E66.9 Obesity, unspecified; J13 Pneumonia due to Streptococcus pneumoniae; N18.3 Chronic kidney disease, stage 3 (moderate); Z68.30 Body mass index [BMI] 30.0-30.9, adult; Z99.81 Dependence on supplemental oxygen; T45.1X5A Adverse effect of antineoplastic and immunosuppressive drugs, initial encounter; Z79.52 Long term (current) use of systemic steroids; Z79.82 Long term (current) use of aspirin; Z79.899 Other long term (current) drug therapy
CPT/HCPCS: 36415; 71275; 80048; 82553; 82805; 83605; 83690; 83735; 83880; 84484; 85025; 85379; 90471; 90670; 90682; 93306; 94640; 94660; 96361; 96365; 96366; 96375; G0008; G0009; G0237; J1650; J1940; J1956; J2060; J7506; J7620; Q2036

== ENCOUNTER 2017-11-15 12:20 | Outpatient (CLI) | payer MEDICARE, BC ==
[2017-11-15 14:33] LABS: Actual Bicarbonate (HCO3a) 21.5 mEq/L (22-26); Base Excess (BEa) 0.1 mEq/L (0 (+/-) 2.5); CO2 Tension 26.8 mmHg (35.0-45.0); O2 Tension (PaO2) 68.8 mmHg (80.0-100.0); pH, Arterial 7.52 (7.35-7.45)
[2017-11-15 14:34] LABS: Hematocrit-ABG 48.1 % (42.0-52.0); Hemoglobin (Hb) 14.8 g/dL (14.0-18.0)
[2017-11-15 14:36] LABS: Analyzer IN Cardio OR; Calcium, Ionized 1.2 mmol/L (1.12-1.30); Puncture Site LFT RD
== END 2017-11-15 12:21 | disposition home or self-care (01) ==
LOC: CP 12:20
PROVIDERS: ATTEND Internal Medicine
DX: J84.9 Interstitial pulmonary disease, unspecified (principal)
CPT/HCPCS: 82805; 94060; 94727; 94729

== ENCOUNTER 2017-12-22 20:30 | Outpatient (CLI) | payer MEDICARE, BC | END 2017-12-22 20:31 | disposition home or self-care (01) | LOC: SLEEPLAB 20:30 | PROVIDERS: ATTEND Internal Medicine | DX: G47.33 Obstructive sleep apnea (adult) (pediatric) (principal); R53.83 Other fatigue; R51 Headache; K21.9 Gastro-esophageal reflux disease without esophagitis; R06.83 Snoring; R09.02 Hypoxemia | CPT/HCPCS: 95810 ==

== ENCOUNTER 2018-02-06 20:30 | Outpatient (CLI) | payer MEDICARE, BC | END 2018-02-06 20:31 | disposition home or self-care (01) | LOC: SLEEPLAB 20:30 | PROVIDERS: ATTEND Internal Medicine | DX: G47.33 Obstructive sleep apnea (adult) (pediatric) (principal); K21.9 Gastro-esophageal reflux disease without esophagitis; R51 Headache; R53.83 Other fatigue; R06.83 Snoring; R35.1 Nocturia; I49.3 Ventricular premature depolarization; I49.1 Atrial premature depolarization | CPT/HCPCS: 95811 ==

== ENCOUNTER 2018-07-17 06:26 | Inpatient (IN) | payer MEDICARE, BC ==
[2018-07-17] MEDS ORDERED: methylPREDNISolone Sod Succ/PF 125 MG/2 ML VIAL ONE (06:46)
[2018-07-17 07:03] LABS: Hemoglobin 17.5 g/dL (14.0-18.0); Mean Corpuscular HGB CONC 31.4 g/dL (32.0-36.0); Mean Corpuscular Hemoglobin 27.7 pg (27.0-31.0); Mean Corpuscular Volume 88.1 fL (78.0-98.0); Mean Platelet Volume 8.9 fL (7.4-10.4); Platelet Count 259 thou/uL (130-400); RBC Distribution Width 14.1 % (11.5-14.5); Red Blood Cell (RBC) Count 6.32 mill/uL (4.70-6.10); White Blood Cell (WBC) Count 20.7 thou/uL (4.8-10.8)
[2018-07-17] MEDS ORDERED: Morphine 10 MG/ML VIAL ONE (07:20)
[2018-07-17] MEDS ORDERED: Midazolam HCl 5 mg/ml Vial ONE (07:20)
[2018-07-17 07:24] LABS: Troponin I Less than 0.010 ng/mL (< 0.028)
[2018-07-17] MEDS ORDERED: Lidocaine 1% (PF) 30 ML VIAL ONE (07:28)
[2018-07-17 07:42] LABS: Band 2 % (5-11); Eosinophils 1 % (0-10); Lymphocytes 23 % (21-51); MDiff Complete? YES; Monocytes 6 % (0-10); Neutrophil 58 % (42-75); RBC Morphology Normal; Reactive Lymphocytes 10 % (0-10)
[2018-07-17] MEDS ORDERED: HYDROcodone/Acetaminophen 5/325 mg Tablet PO PRN ×2 (08:10)
--- NOTE | 2018-07-17 08:36 | RAD ---
ONE VIEW CHEST: COMPARISON: 10/27/2017. FINDINGS: Portable single view chest demonstrates a moderate left-sided pneumothorax with deviation of the card iac silhouette to the right suggesting tension pneumothorax. Heart size is within normal limits. Chr onic changes in the right lung. IMPRESSION: Left-sided tension hydropneumothorax. Results of the study discussed with Dr. Covington 07/17/2018 at 7:45 a.m. CODE CR POS: FANG
[2018-07-17] MEDS ORDERED: HYDROcodone/Acetaminophen 10/325 mg Tablet ONE (08:55)
--- NOTE | 2018-07-17 09:01 | CON ---
DATE OF CONSULTATION: 07/17/2018 REQUESTING PHYSICIAN: Dr. Covington. REASON FOR CONSULTATION: Pneumothorax. HISTORY OF PRESENT ILLNESS: The patient is a 67-year-old former smoker, who about 2 years ago was di agnosed with a lymphoma. He now has pulmonary fibrosis that has been attributed to chemotherapy he r eceived for that. He quit smoking about a year or two ago and has been disease free for about a year now. Three to four hours prior to admission, the patient had sudden onset of left-sided chest and b ack pain associated with shortness of breath. When it persisted, he presented to the emergency room and he was found to have a large left-sided pneumothorax on a chest x-ray. PAST MEDICAL HISTORY: Significant for his lymphoma and his pulmonary fibrosis. He describes a "fast heart rate, for which he takes medicine." HOME MEDICATIONS: Include Cardizem-CD, Xanax at bedtime, Breo Ellipta, Stiolto inhaler, BuSpar, Muci nex, prednisone, and he is apparently currently on a course of Levaquin. ALLERGIES: He denies any medical allergies. SOCIAL HISTORY: He quit smoking about a year ago. REVIEW OF SYSTEMS: Positive for his baseline shortness of breath, worse today. PHYSICAL EXAMINATION: GENERAL: The patient is short of breath appearing. VITAL SIGNS: Heart rate is in the upper 80s to mid 90s, blood pressure 132/93, respiratory rate 26, O2 sats are in the low to mid 90% range. NECK: He has no JVD, no tracheal shift. LUNGS: Fairly clear breath sounds on the right, absent breath sounds on the left with no discernible difference on percussion. CARDIOVASCULAR: He has a regular rate and rhythm. ABDOMEN: Soft and nontender. His chest x-ray shows a large left-sided pneumothorax. IMPRESSION AND PLAN: Spontaneous left-sided pneumothorax in a patient with baseline pulmonary fibros is. Plan on conventional chest tube placement and admission.
--- NOTE | 2018-07-17 09:12 | OP ---
DATE OF PROCEDURE: 07/17/2018 PROCEDURES PERFORMED: 36 Algerian left tube thoracostomy. PREOPERATIVE DIAGNOSIS: Spontaneous left pneumothorax. POSTOPERATIVE DIAGNOSIS: Spontaneous left pneumothorax. SURGEON: Dr. Isauro Vega ANESTHESIA: 1% lidocaine local anesthesia with incremental dosing of Versed and morphine for a tota l of 3 mg of IV Versed and 10 mg of IV morphine. INDICATIONS: The patient is a 67-year-old man with pulmonary fibrosis. He had sudden onset of chest and back pain and shortness of breath and was found to have a large left-sided pneumothorax. FINDINGS: Air goldberg heard upon entering the chest, good reexpansion of the lung on post-procedure rico st x-ray. NARRATIVE REPORT: After informed consent was obtained, the patient was sedated. His left chest was prepped and draped in sterile fashion. 1% lidocaine was used to infiltrate the skin and subcutaneous tissues at about the nipple line on the left chest at the level of the xiphoid. When an adequate le lily of anesthesia had been achieved, the skin was sharply incised and a subcutaneous tract was develo ped by blunt dissection superiorly and posteriorly. Additional lidocaine is infiltrated over the sup erior rib margin. The syringe was aspirated upon as the needle was advanced until air bubbles were a chieved. The needle was gradually withdrawn and then a bolus of lidocaine was delivered just superfi cial to the pleura and the soft tissues of the chest wall as the needle was withdrawn. Blunt dissect ion was then used to enter the pleural space. A 36 Algerian chest tube was inserted through that thora costomy site after probing it with my finger. The chest tube was secured to the skin with suture, co nnected to closed suction drainage and dressed.
--- NOTE | 2018-07-17 09:20 | RAD ---
PORTABLE CHEST 1 VIEW: DATE: 07/17/2018. TIME: 7:01 a.m. HISTORY: Pneumothorax, chest tube placement. FINDINGS/IMPRESSION: There has been interval placement of a left-sided chest tube since earlier exam of 5:53 a.m. There i s reexpansion of the left lung. A tiny left apical residual pneumothorax may be present. POS: [facility]
--- NOTE | 2018-07-17 10:25 | HP ---
PRIMARY CARE PHYSICIAN: Dr. Topete. CHIEF COMPLAINT: Chest pain and shortness of breath. HISTORY OF PRESENT ILLNESS: Mr. Rene is a very pleasant 67-year-old gentleman that has a history of pulmonary fibrosis. He also has a history of chronic pulmonary failure secondary to this. The sudha ent says he was in his usual state of health until yesterday when he was riding in a pickup truck and then suddenly noticed a bad pain in the left side of his chest. He says it got progressively worse over the course of the day. He also noted worsening of his dyspnea. He denies having any fevers or chills prior to this. He has had an occasional cough, but nothing out of the ordinary and the dyspne a and pain got progressively worse to the point where he had to come to the emergency room for evalua tion. In the ER, he was evaluated and found to have a left pneumothorax and he is being admitted for the treatment of this. The review of systems is essentially negative except for that mentioned in t he history of present illness. PAST MEDICAL HISTORY: Significant for pulmonary fibrosis with chronic respiratory failure, on home o xygen, as well as Hodgkin's lymphoma. The patient also has a history of congestive heart failure wit h preserved ejection fraction. The past medical history is significant for left inguinal hernia repa ir. ALLERGIES: No known drug allergies. SOCIAL HISTORY: He is twice. He is a former smoker. He denies any alcohol use or drug use . His medical power of energy attorney is his sister, Pricila Fernando; she is primary. His other sister is secondary. He would like to be a FULL CODE. FAMILY HISTORY: Significant for a brother, who had liver cancer. Mother had lung cancer, and esopha geal cancer is in the family. CURRENT MEDICATIONS: Diltiazem 360 mg daily, Breo Ellipta 200/25 inhaled daily, Crestor 10 mg daily, aspirin 81 mg daily, ranitidine 150 mg at bedtime, and DuoNeb p.r.n. PHYSICAL EXAMINATION: GENERAL: He is alert and oriented. He appears to be in no acute distress. He is well-developed and well-nourished. VITAL SIGNS: Blood pressure was 136/87, heart rate 106, respiratory rate of 35, and he is afebrile. HEENT: Pupils are equal, round, and reactive. Extraocular muscles are intact. His sclerae are anic teric. Throat: There is no erythema, no exudates. NECK: No adenopathy, no bruits. LUNGS: He has got some coarse crackles and some decreased breath sounds at the bases, but no wheezin g and no rhonchi. CARDIOVASCULAR: He had a normal S1 and S2. I did not appreciate an S3 or S4. No murmurs, clicks, n o rubs. ABDOMEN: Obese, it is soft, it is nontender and nondistended. Positive for bowel sounds. There is no rebound, no guarding, no organomegaly. EXTREMITIES: There is trace pedal edema. There is no calf tenderness, no joint effusion. NEUROLOGICAL: He is grossly intact. His muscle strength is 5/5 in both his upper and lower extremit ies. SKIN AND INTEGUMENT: There are no skin changes. No rash. IMAGING: On his chest x-ray, he appears to have a left apical pneumothorax. He also has bilateral c hronic interstitial changes. Heart size is normal. No obvious effusion. This is by my reading. LABORATORY RESULTS: White blood cell count was 20.7, hemoglobin 17.5, hematocrit is 55.7, platelet c ount was 259. Troponin was less than 0.010. ProBNP was 50.1. ASSESSMENT AND PLAN: This is a pleasant 67-year-old gentleman that presents to the emergency room wi th the sudden onset of chest pain and shortness of breath. He was found to have a spontaneous pneumo thorax. He also has a history of chronic pulmonary fibrosis. 1. For the spontaneous pneumothorax, Cardiovascular Surgery has already been consulted and has seen the patient and has already placed a chest tube in the ER. Further management of this will be as per the Cardiovascular Surgery team. 2. Pulmonary fibrosis. We will continue his usual home medications including the Breo Ellipta or it s equivalent as well as DuoNeb p.r.n. and supplemental oxygen. We will also consult his pulmonologis t for further recommendations. 3. Leukocytosis. I suspect this is likely as a result of the pneumothorax. He does not give any sy mptoms attributable to a lung infection. However, he has not been on any recent steroids to explain this. We will go ahead and just place him on Rocephin and Zithromax at least overnight and then allo w Pulmonary to decide whether continuing antibiotics are necessary. 4. The patient will be placed on deep venous thrombosis and gastrointestinal prophylaxis.
[2018-07-17] MEDS ORDERED: Senokot S 8.6-50 MG TAB PO PRN (10:54)
[2018-07-17] MEDS: Sodium Chloride 0.9% 1,000 ML IV SCH (11:29)
[2018-07-17] MEDS: Azithromycin 500 MG in Sodium Chloride 0.9% 250 ML 250 ML IVPB SCH (11:36)
[2018-07-17] MEDS: cefTRIAXone\\ROCEPHIN 1 GM in Sodium Chloride 0.9% 100 ML IVPB SCH (13:02)
[2018-07-17] MEDS ORDERED: Prevnar 13-Val Conj/PF 0.5 ML SYRINGE IM ONE (16:00)
[2018-07-17] MEDS: HYDROcodone/Acetaminophen 10/325 mg Tablet PO PRN (20:32)
[2018-07-18] MEDS: Sodium Chloride 0.9% 1,000 ML IV SCH (03:53)
[2018-07-18] MEDS: HYDROcodone/Acetaminophen 10/325 mg Tablet PO PRN ×4 (03:56→20:39)
[2018-07-18 04:40] LABS: #Lymphocytes 1.8 thou/uL (1.20-3.40); #Monocytes 0.6 thou/uL (0.11-0.59); #Neutrophils 12.8 thou/uL (1.40-6.50); %Eosinophils 0.1 % (0.0-10.0); %Neutrophils 83.8 % (42.0-75.0); Hemoglobin 14.9 g/dL (14.0-18.0); Mean Corpuscular HGB CONC 31.8 g/dL (32.0-36.0); Mean Corpuscular Hemoglobin 28.2 pg (27.0-31.0); Mean Corpuscular Volume 88.5 fL (78.0-98.0); Mean Platelet Volume 9.3 fL (7.4-10.4); Platelet Count 223 thou/uL (130-400); Red Blood Cell (RBC) Count 5.29 mill/uL (4.70-6.10); White Blood Cell (WBC) Count 15.3 thou/uL (4.8-10.8)
[2018-07-18 05:11] LABS: Anion Gap 15 mmol/L (10-20); BUN (Urea Nitrogen) 25 mg/dL (8.4-25.7); Calc. Creatinine Clearance 92 mL/min (70-130); Calcium 9.6 mg/dL (7.8-10.44); Carbon Dioxide 23 mmol/L (23-31); Chloride 104 mmol/L (98-107); Estimated GFR-MDRD 61; Glucose 149 mg/dL (80-115); Potassium 4.4 mmol/L (3.5-5.1); Sodium 138 mmol/L (136-145)
[2018-07-18] MEDS: Enoxaparin Sodium 40 MG/0.4 ML SYRINGE SC SCH (08:19)
[2018-07-18] MEDS: Azithromycin 500 MG in Sodium Chloride 0.9% 250 ML 250 ML IVPB SCH (10:57)
[2018-07-18] MEDS: cefTRIAXone\\ROCEPHIN 1 GM in Sodium Chloride 0.9% 100 ML IVPB SCH (12:08)
--- NOTE | 2018-07-18 12:08 | PDOC.PN ---
- Subjective Encounter Start Date: 07/18/18 Encounter Start Time: 12:07 Mr. Rene was seen today in follow-up of spontaneous pneumothorax. He says he feels better this morning. He has less pain at the chest tube site. He is less short of breath. - Objective Resuscitation Status: Resuscitation Status FULL:Full Resuscitation MAR Reviewed: Yes Vital Signs & Weight: Vital Signs (12 hours) Temp Pulse Resp BP BP Pulse Ox 07/18/18 11:26 98.1 F 92 16 152/78 H 98 07/18/18 08:18 82 138/74 07/18/18 08:00 98.1 F 98 16 139/74 98 07/18/18 07:18 82 20 94 L 07/18/18 00:17 108 H 20 96 Weight Weight 232 lb I&O: 07/17/18 07/18/18 07/19/18 06:59 06:59 06:59 Intake Total 680 Balance 680 Result Diagrams: 07/18/18 03:27 07/18/18 03:27 Phys Exam - Physical Examination HEENT: PERRLA Respiratory: wheezing present + bilateral wheezing and fine rales Cardiovascular: RRR, no significant murmur, no rub Gastrointestinal: soft, non-tender, no distention, positive bowel sounds Musculoskeletal: no edema Dx/Plan (1) Spontaneous pneumothorax Code(s): J93.83 - OTHER PNEUMOTHORAX Status: Acute (2) Pulmonary fibrosis Code(s): J84.10 - PULMONARY FIBROSIS, UNSPECIFIED Status: Acute (3) Leukocytosis Code(s): D72.829 - ELEVATED WHITE BLOOD CELL COUNT, UNSPECIFIED Status: Acute (4) Chronic diastolic heart failure Code(s): I50.32 - CHRONIC DIASTOLIC (CONGESTIVE) HEART FAILURE Status: Chronic - Plan * Spontaneous Pneumothorax- he has had Chest tube placed, and not it has been clamped * Leukocytosis- improved * Pulmonary Fibrosis- stable * Chronic diastolic heart failure- compensated .
--- NOTE | 2018-07-18 13:19 | RAD ---
CHEST ONE VIEW: Comparison: 07-17-18 History: Chest tube, pneumothorax. FINDINGS: Stable left sided chest tube. Small left sided pneumothorax is unchanged. Chronic changes in the lung parenchyma. Stable cardiac silhouette. IMPRESSION: No significant change. POS: [facility]
--- NOTE | 2018-07-18 17:14 | CON ---
DATE OF CONSULTATION: 07/18/2018 SERVICE: Pulmonary Medicine. REASON FOR CONSULT: Pneumothorax. HISTORY OF PRESENT ILLNESS: Patient is a very pleasant 67-year-old white male with past medical history significant for idiopathic pulmonary fibrosis. He was in his usual state of health when he had an abrupt onset of sharp discomfort inside of his chest. He had difficulty breathing. He came to the emergency department where an immediate chest x-ray demonstrated a left-sided pneumothorax. Ultimately, chest tube was placed. After this occurred, his sharp chest discomfort and shortness of breath improved. Overnight, he settled down. He had no specific complaints of fevers, chills, nausea, vomiting or diarrhea. There has been no interval change to his condition otherwise. He denies having any significant sputum production, fevers, chills. His breathing prior to this event was at baseline. PAST MEDICAL HISTORY: 1. Pulmonary fibrosis, possibly secondary to medication for Hodgkin's lymphoma. 2. Hodgkin's lymphoma, currently in remission. 3. Osteoarthritis. 4. Chronic hypoxic respiratory failure. 5. Chronic heart failure. 6. Left-sided secondary spontaneous pneumothorax. PAST SURGICAL HISTORY: 1. Left-sided inguinal hernia repair. 2. Left-sided thoracostomy drain. FAMILY HISTORY: Noncontributory. SOCIAL HISTORY: Negative for current alcohol, tobacco or illicit drug use. He has greater than 58-[id number]-ddel history of smoking. He has no exposure to chemicals, dust asbestos or tuberculosis. ALLERGIES: No known drug allergies. MEDICATIONS: List of his inpatient medications were reviewed. No specific updates were made at this time. REVIEW OF SYSTEMS: General, head, ears, eyes, nose, throat, cardiovascular, respiratory, GI, , musculoskeletal, neurologic and skin is negative except as mentioned in the HPI. PHYSICAL EXAMINATION: VITAL SIGNS: Afebrile, pulse 92, blood pressure 152/78, respirations 16, saturation 98% on 3 liters nasal cannula. GENERAL: Patient is awake, alert, in no apparent distress. LUNGS: Decent air entry. Crackles are present. There is no prolonged expiratory phase or wheezing. HEART: Normal rate, regular. ABDOMEN: Soft, nontender, nondistended. Bowel sounds are positive. MUSCULOSKELETAL: No cyanosis or clubbing. No pitting in the bilateral lower extremities. NEUROLOGIC: Grossly nonfocal. LABORATORY DATA: WBC 15.3, hemoglobin 14.9, platelets 223,000. Basic metabolic profile is completely unremarkable. His creatinine is 1.19. Troponin below assay limit. BNP is unremarkable. Influenza A and B is negative. IMAGIN. Original Chest x-ray demonstrates collapse of the left lung, demonstrating a very generous left-sided pneumothorax. Right lungs were well aerated without acute findings. There is interstitial fullness. No effusion is identified. 2. Chest x-ray from this morning demonstrates placement of an anterior thoracostomy tube with good re-expansion of the left lung. There is a very small pneumothorax that persists. Interstitial markings are once again noted. Coronal angle is narrow. ASSESSMENT: 1. Acute on chronic hypoxic respiratory failure, resolved to baseline. 2. Secondary spontaneous pneumothorax, status post 36-Hebrew thoracostomy tube in the left anterior position, postop day #1. 3. Pulmonary fibrosis likely secondary to chemotherapeutic agents treating his Hodgkin's lymphoma. 4. Obstructive sleep apnea, mild. DISCUSSION AND PLAN: The patient is doing fine from a respiratory standpoint. He has a persistent small air leak. As such, we will take him off of suction. If he tolerates this okay, we can consider transitioning home with a Heimlich valve in 24 hours. The chest tube can be removed in the outpatient setting if Dr. Vega would be okay with that. Since this is such a small air leak, if the patient has recurrence of pneumothorax once this chest tube is removed, a small pigtail second anterior intercostal chest tube should be considered next time around. Pulmonary will continue to follow if the patient remains in house. 70 minutes have been devoted to this patient in various activities. I personally reviewed all imaging studies and laboratory data noted within this document. For fifty percent of this time, I was interacting with the patient at the bedside or coordinating care with the care team. For the remainder of the time I was immediately available to the patient in the hospital unit. MAXIMINO
[2018-07-19] MEDS: Enoxaparin Sodium 40 MG/0.4 ML SYRINGE SC SCH (08:27)
--- NOTE | 2018-07-19 09:32 | RAD ---
CHEST UPRIGHT PORTABLE ONE VIEW: History: 67-year-old male history of follow up left sided pneumothorax and left sided chest tube. FINDINGS: Probable small residual left sided pneumothorax, overall stable. Left chest tube in place. Bibasilar parenchymal changes. IMPRESSION: Stable appearing left chest tube and small left sided pneumothorax. Stable bibasilar parenchymal amcario ges. Continued short term follow up. POS: [facility]
[2018-07-19] MEDS: Simethicone Chewable 80 MG TAB PO PRN (11:45)
[2018-07-19] MEDS: HYDROcodone/Acetaminophen 5/325 mg Tablet PO PRN ×2 (11:48→17:13)
[2018-07-19] MEDS: cefTRIAXone\\ROCEPHIN 1 GM in Sodium Chloride 0.9% 100 ML IVPB SCH (11:48)
--- NOTE | 2018-07-19 12:26 | PDOC.PN ---
- Subjective Encounter Start Date: 07/19/18 Encounter Start Time: 12:24 Subjective: feeling much better, could not tolerate clamping of the chesttube yesterday - Objective Resuscitation Status: Resuscitation Status FULL:Full Resuscitation MAR Reviewed: Yes Vital Signs & Weight: Vital Signs (12 hours) Temp Pulse Resp BP BP Pulse Ox 07/19/18 10:30 82 16 95 07/19/18 08:27 84 142/84 H 07/19/18 08:00 98.7 F 84 16 142/84 H 99 07/19/18 07:01 92 18 98 07/19/18 00:51 93 18 97 Weight Weight 232 lb I&O: 07/18/18 07/19/18 07/20/18 06:59 06:59 06:59 Intake Total 680 500 240 Output Total 1300 Balance 680 -800 240 Result Diagrams: 07/18/18 03:27 07/18/18 03:27 Phys Exam - Physical Examination HEENT: PERRLA, moist MMs, sclera anicteric, TM's clear, oral pharynx no lesions , 2+ tonsils Neck: no nodes, no JVD, supple, full ROM coarse breath sounds all over Cardiovascular: RRR, no significant murmur, no rub Gastrointestinal: soft, non-tender, no distention, positive bowel sounds Musculoskeletal: edema present Neurological: non-focal, normal sensation, moves all 4 limbs Psychiatric: normal affect, A&O x 3 Dx/Plan (1) Pulmonary fibrosis Code(s): J84.10 - PULMONARY FIBROSIS, UNSPECIFIED Status: Acute (2) Spontaneous pneumothorax Code(s): J93.83 - OTHER PNEUMOTHORAX Status: Acute (3) Hypertension Code(s): I10 - ESSENTIAL (PRIMARY) HYPERTENSION Status: Acute - Plan cont current plan of care, DVT proph w/SCDs * Spontaneous Pneumothorax- he has had Chest tube placed, and not it has been clamped * Leukocytosis- improved * Pulmonary Fibrosis- stable * Chronic diastolic heart failure- compensated . * .
--- NOTE | 2018-07-19 14:39 | PRG ---
DATE OF SERVICE: 07/19/2018 SUBJECTIVE: This morning, he is better, less short of breath. OBJECTIVE: VITAL SIGNS: Sats are 95% on 3 liters, respirations 16, temperature 98, blood pressure 140/84. CHEST: Bilateral crackles. No wheezing. CARDIAC: Normal S1, S2. No gallops. ABDOMEN: Soft. No masses. ASSESSMENT: Left-sided spontaneous pneumothorax, secondary to idiopathic pulmonary fibrosis. PLAN: Continue CT drainage, supportive care, empiric antibiotics. We will follow.
[2018-07-19] MEDS ORDERED: Sodium Chloride 0.65% Nasal 44 ML BOT EA NARE PRN (21:24)
[2018-07-20] MEDS: HYDROcodone/Acetaminophen 5/325 mg Tablet PO PRN ×2 (03:28→23:50)
[2018-07-20] MEDS: Acetaminophen 325 MG TAB PO PRN ×2 (08:38→15:48)
[2018-07-20] MEDS: Enoxaparin Sodium 40 MG/0.4 ML SYRINGE SC SCH (08:39)
[2018-07-20 10:36] LABS: #Basophils 0.1 thou/uL (0.0-0.2); #Eosinphils 0.2 thou/uL (0.0-0.7); #Lymphocytes 3.5 thou/uL (1.20-3.40); #Monocytes 2.1 thou/uL (0.11-0.59); %Basophils 0.5 % (0.0-1.0); %Eosinophils 1.2 % (0.0-10.0); %Lymphocytes 22.1 % (21.0-51.0); %Monocytes 13.2 % (0.0-10.0); Hemoglobin 14.8 g/dL (14.0-18.0); Mean Corpuscular HGB CONC 32.2 g/dL (32.0-36.0); Mean Corpuscular Hemoglobin 28.1 pg (27.0-31.0); Mean Corpuscular Volume 87.3 fL (78.0-98.0); Mean Platelet Volume 9.2 fL (7.4-10.4); Platelet Count 216 thou/uL (130-400); RBC Distribution Width 13.9 % (11.5-14.5); Red Blood Cell (RBC) Count 5.25 mill/uL (4.70-6.10); White Blood Cell (WBC) Count 15.8 thou/uL (4.8-10.8)
[2018-07-20 10:56] LABS: Anion Gap 13 mmol/L (10-20); BUN (Urea Nitrogen) 18 mg/dL (8.4-25.7); Calc. Creatinine Clearance 118 mL/min (70-130); Calcium 9.6 mg/dL (7.8-10.44); Carbon Dioxide 25 mmol/L (23-31); Chloride 104 mmol/L (98-107); Estimated GFR-MDRD 82; Glucose 96 mg/dL (80-115); Potassium 4.3 mmol/L (3.5-5.1); Sodium 138 mmol/L (136-145)
[2018-07-20] MEDS: cefTRIAXone\\ROCEPHIN 1 GM in Sodium Chloride 0.9% 100 ML IVPB SCH (12:46)
[2018-07-20] MEDS ORDERED: guaiFENesin/Codeine Phosphate 200 mg/20 mg 10 ml UD Cup PO PRN (14:30)
[2018-07-20] MEDS ORDERED: guaiFENesin/Dextromethorphan 10 ML UDCUP PO PRN (14:31)
--- NOTE | 2018-07-20 14:34 | PDOC.PN ---
- Subjective Encounter Start Date: 07/20/18 Encounter Start Time: 11:14 Subjective: pt up in bed has pain to his left chest area - Objective Resuscitation Status: Resuscitation Status FULL:Full Resuscitation Vital Signs & Weight: Vital Signs (12 hours) Temp Pulse Resp BP BP Pulse Ox 07/20/18 12:06 100 18 98 07/20/18 08:00 97.7 F 100 20 133/79 95 07/20/18 06:00 101 H 16 98 07/20/18 05:16 98.4 F 101 H 20 150/87 H 92 L Weight Weight 232 lb I&O: 07/19/18 07/20/18 07/21/18 06:59 06:59 06:59 Intake Total 500 2380 Output Total 1300 2050 Balance -800 330 Result Diagrams: 07/20/18 09:58 07/20/18 09:58 Phys Exam - Physical Examination Neck: no nodes, no JVD, supple, full ROM decrease breath sound to left lung Cardiovascular: RRR, no significant murmur, no rub, gallop, irregular Gastrointestinal: soft, non-tender, no distention, positive bowel sounds Dx/Plan (1) Spontaneous pneumothorax Code(s): J93.83 - OTHER PNEUMOTHORAX Status: Acute (2) Leukocytosis Code(s): D72.829 - ELEVATED WHITE BLOOD CELL COUNT, UNSPECIFIED Status: Acute (3) Pulmonary fibrosis Code(s): J84.10 - PULMONARY FIBROSIS, UNSPECIFIED Status: Acute (4) Hypertension Code(s): I10 - ESSENTIAL (PRIMARY) HYPERTENSION Status: Acute - Plan will continue abx for now unlikley to be infectious process -: will add cough meds and IS -: pt still has a lot of pain to his left chest tube area * . Review of Systems - Review of Systems Respiratory: Cough, Shortness of Breath Cardiovascular: negative: chest pain, palpitations, orthopnea, paroxysmal nocturnal dyspnea, edema, light headedness, other Gastrointestinal: negative: Nausea, Vomiting, Abdominal Pain, Diarrhea, Constipation, Melena, Hematochezia, Other - Medications/Allergies Allergies/Adverse Reactions: Allergies Allergy/AdvReac Type Severity Reaction Status Date / Time No Known Drug Allergies Allergy Verified 08/29/17 20:36 Medications: Current Medications Acetaminophen (Tylenol) 650 mg PO Q4H PRN PRN Reason: Headache/Fever/Mild Pain (1-3) Last Admin: 07/20/18 08:38 Dose: 650 mg Hydrocodone Bitart/Acetaminophen ([place] 10/325) 1 tab PO Q4H PRN PRN Reason: Moderate Pain (4-6) Last Admin: 07/18/18 20:39 Dose: 1 tab Hydrocodone Bitart/Acetaminophen ([place] 5/325) 1 tab PO Q4H PRN PRN Reason: Moderate Pain (4-6) Last Admin: 07/20/18 03:28 Dose: 1 tab Albuterol/Ipratropium (Duoneb) 3 ml NEB [id number] PRN PRN Reason: SOB &/or Wheezing Albuterol/Ipratropium (Duoneb) 3 ml NEB [id number] [facility] Last Admin: 07/20/18 12:06 Dose: 3 ml Diltiazem HCl (Cardizem Cd) 120 mg PO DAILY [facility] Last Admin: 07/20/18 08:38 Dose: 120 mg Diltiazem HCl (Cardizem Cd) 240 mg PO DAILY [facility] Last Admin: 07/20/18 08:38 Dose: 240 mg Enoxaparin Sodium (Lovenox) 40 mg SC 0900 [facility] Last Admin: 07/20/18 08:39 Dose: 40 mg Guaifenesin/Codeine Phosphate (Robitussin Ac) 10 ml PO HS PRN PRN Reason: Cough Guaifenesin/Dextromethorphan (Robitussin Dm) 10 ml PO Q6H PRN PRN Reason: Cough Ceftriaxone Sodium 1 gm/ (Sodium Chloride) 100 mls @ 200 mls/hr IVPB 1300 [facility] Last Admin: 07/20/18 12:46 Dose: 100 mls Pantoprazole Sodium (Protonix) 40 mg PO DAILY [facility] Last Admin: 07/20/18 08:38 Dose: 40 mg Senna/Docusate Sodium (Senokot S) 2 tab PO BID PRN PRN Reason: Constipation Simethicone (Mylicon Chewable) 80 mg PO TIDPRN PRN PRN Reason: . Last Admin: 07/19/18 11:45 Dose: 80 mg Sodium Chloride ([place] Nasal [place] 0.65%) 0 ml EA NARE PRN PRN PRN Reason: Nasal Dryness Last Admin: 07/19/18 21:47 Dose: 1 spr
--- NOTE | 2018-07-20 16:51 | PRG ---
DATE OF SERVICE: 07/20/2018 SUBJECTIVE: Mr. Rene still has an air leak. OBJECTIVE: VITAL SIGNS: He is afebrile, heart rate 95, respiratory rate is 20, oximetry is in the mid 90s, bloo d pressure 133/79. LUNGS: Free of wheezes. HEART: Regular rhythm. ABDOMEN: Soft. LABORATORY DATA: White count 15.8, hemoglobin 14.8, platelets 216. Electrolytes are normal. IMPRESSION: 1. Pneumothorax. 2. Interstitial lung disease. PLAN: Continue chest tube suctioning, I encouraged him to spend some time out of bed in the chair.
[2018-07-20] MEDS ORDERED: Guaifenesin DM 100-10/5 ML UDCUP PO PRN (17:45)
[2018-07-20] MEDS: Simethicone Chewable 80 MG TAB PO PRN (18:18)
[2018-07-21] MEDS: Enoxaparin Sodium 40 MG/0.4 ML SYRINGE SC SCH (07:11)
[2018-07-21] MEDS: Acetaminophen 325 MG TAB PO PRN ×2 (07:11→17:25)
[2018-07-21] MEDS ORDERED: ISOVUE-370 76%-LOCM 1 ML ONE (10:20)
--- NOTE | 2018-07-21 10:50 | RAD ---
CHEST 1 VIEW: HISTORY: Pneumothorax. COMPARISON: Radiograph 2 days prior. FINDINGS: Thoracostomy tube on the left is similar. The left lateral apical pneumothorax is similar. Chronic interstitial markings in both lung bases. Cardiac silhouette and mediastinal contours are similar. Small right effusion. IMPRESSION: No significant change in left-sided pneumothorax. POS: [facility]
--- NOTE | 2018-07-21 12:54 | PDOC.PN ---
- Subjective Encounter Start Date: 07/21/18 Encounter Start Time: 12:00 Subjective: pt sitting up in chair, still very sob on speaking short sentences - Objective Resuscitation Status: Resuscitation Status FULL:Full Resuscitation Vital Signs & Weight: Vital Signs (12 hours) Temp Pulse Resp BP BP BP Pulse Ox 07/21/18 12:15 98 20 96 07/21/18 07:15 97.8 F 98 18 153/88 H 96 07/21/18 07:11 98 153/88 H 07/21/18 05:55 101 H 20 96 07/21/18 03:47 97.7 F 104 H 18 160/93 H 97 Weight Weight 232 lb I&O: 07/20/18 07/21/18 07/22/18 06:59 06:59 06:59 Intake Total 2380 1540 Output Total 2050 1651 Balance 330 -111 Result Diagrams: 07/20/18 09:58 07/20/18 09:58 Phys Exam - Physical Examination Neck: no nodes, no JVD, supple, full ROM Respiratory: wheezing present mid rhonchi all over Cardiovascular: RRR, no significant murmur, no rub, gallop, irregular Gastrointestinal: soft, non-tender, no distention, positive bowel sounds Dx/Plan (1) Spontaneous pneumothorax Code(s): J93.83 - OTHER PNEUMOTHORAX Status: Acute (2) Leukocytosis Code(s): D72.829 - ELEVATED WHITE BLOOD CELL COUNT, UNSPECIFIED Status: Acute (3) Pulmonary fibrosis Code(s): J84.10 - PULMONARY FIBROSIS, UNSPECIFIED Status: Acute (4) Hypertension Code(s): I10 - ESSENTIAL (PRIMARY) HYPERTENSION Status: Acute - Plan will add low dose steroid -: pt's ct still indicated pneumothorax -: has chest tube with leak * . Review of Systems - Review of Systems Respiratory: Cough, Shortness of Breath Cardiovascular: negative: chest pain, palpitations, orthopnea, paroxysmal nocturnal dyspnea, edema, light headedness, other Gastrointestinal: negative: Nausea, Vomiting, Abdominal Pain, Diarrhea, Constipation, Melena, Hematochezia, Other Genitourinary: negative: Dysuria, Frequency, Incontinence, Hematuria, Retention , Other - Medications/Allergies Allergies/Adverse Reactions: Allergies Allergy/AdvReac Type Severity Reaction Status Date / Time No Known Drug Allergies Allergy Verified 08/29/17 20:36 Medications: Current Medications Acetaminophen (Tylenol) 650 mg PO Q4H PRN PRN Reason: Headache/Fever/Mild Pain (1-3) Last Admin: 07/21/18 07:11 Dose: 650 mg Hydrocodone Bitart/Acetaminophen (Katy 10/325) 1 tab PO Q4H PRN PRN Reason: Moderate Pain (4-6) Last Admin: 07/18/18 20:39 Dose: 1 tab Hydrocodone Bitart/Acetaminophen (Katy 5/325) 1 tab PO Q4H PRN PRN Reason: Moderate Pain (4-6) Last Admin: 07/20/18 23:50 Dose: 1 tab Albuterol/Ipratropium (Duoneb) 3 ml NEB [id number] PRN PRN Reason: SOB &/or Wheezing Albuterol/Ipratropium (Duoneb) 3 ml NEB [id number] KATIE Last Admin: 07/21/18 12:15 Dose: 3 ml Diltiazem HCl (Cardizem Cd) 120 mg PO DAILY [facility] Last Admin: 07/21/18 07:12 Dose: 120 mg Diltiazem HCl (Cardizem Cd) 240 mg PO DAILY [facility] Last Admin: 07/21/18 07:11 Dose: 240 mg Enoxaparin Sodium (Lovenox) 40 mg SC 0900 [facility] Last Admin: 07/21/18 07:11 Dose: 40 mg Guaifenesin/Codeine Phosphate (Robitussin Ac) 10 ml PO HS PRN PRN Reason: Cough Guaifenesin/Dextromethorphan (Robitussin Dm) 10 ml PO Q6H PRN PRN Reason: Cough Last Admin: 07/20/18 23:50 Dose: 10 ml Ceftriaxone Sodium 1 gm/ (Sodium Chloride) 100 mls @ 200 mls/hr IVPB 1300 [facility] Last Admin: 07/20/18 12:46 Dose: 100 mls Pantoprazole Sodium (Protonix) 40 mg PO DAILY [facility] Last Admin: 07/21/18 07:11 Dose: 40 mg Prednisone (Prednisone) 20 mg PO QAM-[facility] Prednisone (Prednisone) 20 mg PO NOW [facility] Stop: 07/21/18 15:00 Senna/Docusate Sodium (Senokot S) 2 tab PO BID PRN PRN Reason: Constipation Last Admin: 07/20/18 18:20 Dose: 2 tab Simethicone (Mylicon Chewable) 80 mg PO TIDPRN PRN PRN Reason: . Last Admin: 07/20/18 18:18 Dose: 80 mg Sodium Chloride (Shidler Nasal [place] 0.65%) 0 ml EA NARE PRN PRN PRN Reason: Nasal Dryness Last Admin: 07/19/18 21:47 Dose: 1 spr
[2018-07-21] MEDS ORDERED: predniSONE 20 MG TAB PO SCH (13:00)
[2018-07-21] MEDS: cefTRIAXone\\ROCEPHIN 1 GM in Sodium Chloride 0.9% 100 ML IVPB SCH (13:33)
--- NOTE | 2018-07-21 15:18 | CT ---
CT CHEST WITH CONTRAST: HISTORY: Evaluate pneumothorax. COMPARISON: Multiple radiographs. FINDINGS: There is a moderate left-sided pneumothorax with a thoracostomy catheter with tip near the left upper lobe posteriorly. There is marked peripheral pleural thickening near the lingula which is somewhat mass-like. There is bronchiectasis in the lower lobes with interstitial thickening suggesting chroni c interstitial lung disease, likely early findings of UIP pattern. Small volume left-sided subcutaneous emphysema. There is some flattening of the right ventricle. Th ere is mucus and fluid filling the distal thoracostomy tube distal to the side port. Hypodensities noted of the right lobe of the thyroid. No dilatation of the pulmonary vessels. Renal hypodensities are present. IMPRESSION: 1. Moderate sized left pneumothorax involving approximately 40% of the hemithorax volume. There is some mild flattening of the right ventricle suggesting there is some tension to this with minimal rig ht medial shift. There is also extensive peripheral pleural thickening which is somewhat mass-like n ear the lingula which may reflect a component of a trapped lung. Followup after resolution of pneumo thorax is recommended to evaluate for underlying lung mass. 2. Lung findings suggesting chronic obstructive pulmonary disease superimposed on likely early usual interstitial pneumonitis pattern pulmonary fibrosis. 3. No displaced left-sided rib fracture. 4. Abnormal lucencies throughout the T9 vertebral body as previously visualized suggest hemangioma. POS: [facility]
--- NOTE | 2018-07-21 16:31 | PRG ---
DATE OF SERVICE: 07/21/2018 SUBJECTIVE: Mr. Rene is afebrile. He still has an air leak. OBJECTIVE: VITAL SIGNS: Heart rate is 98, blood pressure 153/88, respiratory rate 18. GENERAL: He is in no distress. Intake and output was negative 111. LUNGS: Clear. HEART: Regular rhythm. ABDOMEN: Soft. IMPRESSION: Pulmonary fibrosis with spontaneous pneumothorax. PLAN: Continue chest tube suction.
[2018-07-21] MEDS: Simethicone Chewable 80 MG TAB PO PRN (20:28)
[2018-07-22] MEDS: predniSONE 20 MG TAB PO SCH (08:43)
[2018-07-22] MEDS: Enoxaparin Sodium 40 MG/0.4 ML SYRINGE SC SCH (08:44)
--- NOTE | 2018-07-22 09:39 | RAD ---
CHEST 1 VIEW: HISTORY: A 67-year-old male with a history of followup left-sided pneumothorax. FINDINGS: Small to moderate stable left-sided pneumothorax with left chest tube in place, unchanged from prior exam. Bilateral mid and lower lung zone opacity parenchymal changes. IMPRESSION: Stable left-sided pneumothorax and patchy mid and lower lung zone parenchymal changes. POS: [facility]
[2018-07-22 10:27] LABS: #Eosinphils 0.2 thou/uL (0.0-0.7); #Lymphocytes 2.4 thou/uL (1.20-3.40); #Monocytes 1.4 thou/uL (0.11-0.59); #Neutrophils 10.9 thou/uL (1.40-6.50); %Basophils 0.3 % (0.0-1.0); %Eosinophils 1.6 % (0.0-10.0); %Monocytes 9.2 % (0.0-10.0); Hemoglobin 15.1 g/dL (14.0-18.0); Mean Corpuscular Hemoglobin 27.9 pg (27.0-31.0); Mean Corpuscular Volume 87.2 fL (78.0-98.0); Mean Platelet Volume 9.2 fL (7.4-10.4); Platelet Count 244 thou/uL (130-400); RBC Distribution Width 13.8 % (11.5-14.5); Red Blood Cell (RBC) Count 5.42 mill/uL (4.70-6.10)
[2018-07-22] MEDS: cefTRIAXone\\ROCEPHIN 1 GM in Sodium Chloride 0.9% 100 ML IVPB SCH (11:51)
--- NOTE | 2018-07-22 12:00 | PDOC.PN ---
- Subjective Encounter Start Date: 07/22/18 Encounter Start Time: 10:30 Subjective: pt up in bed no complains - Objective Resuscitation Status: Resuscitation Status FULL:Full Resuscitation Vital Signs & Weight: Vital Signs (12 hours) Temp Pulse Resp BP Pulse Ox 07/22/18 08:00 97.7 F 101 H 16 147/90 H 100 07/22/18 06:37 94 L 07/22/18 06:25 95 20 94 L Weight Weight 232 lb I&O: 07/21/18 07/22/18 07/23/18 06:59 06:59 06:59 Intake Total 1540 240 Output Total 1651 750 Balance -111 -510 Result Diagrams: 07/22/18 09:49 07/20/18 09:58 Dx/Plan (1) Spontaneous pneumothorax Code(s): J93.83 - OTHER PNEUMOTHORAX Status: Acute (2) Leukocytosis Code(s): D72.829 - ELEVATED WHITE BLOOD CELL COUNT, UNSPECIFIED Status: Acute (3) Pulmonary fibrosis Code(s): J84.10 - PULMONARY FIBROSIS, UNSPECIFIED Status: Acute (4) Hypertension Code(s): I10 - ESSENTIAL (PRIMARY) HYPERTENSION Status: Acute - Plan * .
[2018-07-22] MEDS: Acetaminophen 325 MG TAB PO PRN (16:21)
--- NOTE | 2018-07-22 21:50 | PRG ---
DATE OF SERVICE: 07/22/2018 SUBJECTIVE: Mr. Rene has no new complaints. We are waiting for his air leak to resolve. He is tentatively planned to go to surgery. He still has a large air leak. He has no complaints. He is not wheezing. IMPRESSION: Pulmonary fibrosis with spontaneous pneumothorax. PLAN: Thoracoscopy with stapling of blebs. [facility]
[2018-07-22] MEDS: HYDROcodone/Acetaminophen 5/325 mg Tablet PO PRN (21:57)
[2018-07-22] MEDS: Simethicone Chewable 80 MG TAB PO PRN (21:58)
[2018-07-23 06:19] LABS: #Basophils 0.1 thou/uL (0.0-0.2); #Eosinphils 0.2 thou/uL (0.0-0.7); #Lymphocytes 2.3 thou/uL (1.20-3.40); #Monocytes 1.4 thou/uL (0.11-0.59); #Neutrophils 10.3 thou/uL (1.40-6.50); %Basophils 0.4 % (0.0-1.0); %Eosinophils 1.3 % (0.0-10.0); %Lymphocytes 16.3 % (21.0-51.0); %Monocytes 9.8 % (0.0-10.0); %Neutrophils 72.1 % (42.0-75.0); Mean Corpuscular Hemoglobin 27.3 pg (27.0-31.0); Mean Platelet Volume 9.3 fL (7.4-10.4); Platelet Count 251 thou/uL (130-400); RBC Distribution Width 13.8 % (11.5-14.5); White Blood Cell (WBC) Count 14.3 thou/uL (4.8-10.8)
[2018-07-23] MEDS: Enoxaparin Sodium 40 MG/0.4 ML SYRINGE SC SCH (08:03)
[2018-07-23] MEDS: predniSONE 20 MG TAB PO SCH (08:03)
[2018-07-23] MEDS: Acetaminophen 325 MG TAB PO PRN (08:07)
--- NOTE | 2018-07-23 10:04 | PRG ---
DATE OF SERVICE: 07/23/2018 SERVICE: Pulmonary Medicine INTERVAL HISTORY: The patient is doing really well from a respiratory standpoint. He denies any current chest pain, fevers, chills, nausea, vomiting , shortness of breath. Otherwise, there has been no interval change to his condition. PHYSICAL EXAMINATION: VITAL SIGNS: Afebrile, pulse 89, blood pressure 154/83, respirations 22, saturation 92% on 3 liters nasal cannula. GENERAL: The patient is awake, alert, in no apparent distress. LUNGS: Decent air entry. Crackles are present bilaterally. There is decreased air entry on the left. No prolonged expiratory phase or wheezing is appreciated. HEART: Normal rate, regular. ABDOMEN: Soft, nontender, nondistended. Bowel sounds are positive. MUSCULOSKELETAL: No cyanosis or clubbing. There is no pitting in the bilateral lower extremities. NEUROLOGIC: Grossly nonfocal. LABORATORY: WBC 14.3, hemoglobin 15.0, platelets 251,000. ASSESSMENT: 1. Acute on chronic hypoxic respiratory failure. 2. Secondary spontaneous pneumothorax. 3. 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 4. Obstructive sleep apnea, mild. DISCUSSION AND PLAN: The patient is going down for a thoracotomy and pleurodesis today. Pulmonary Critical Care will continue to follow along. The patient will likely end up in the ICU following this procedure. [facility]
[2018-07-23] MEDS ORDERED: Talc Infusion/Pleuradesis 4 GM BOT ONE (10:30)
[2018-07-23] MEDS ORDERED: Fentanyl 250 MCG/5 ML VIAL ONE (13:12)
[2018-07-23] MEDS ORDERED: Ondansetron PF 4 MG/2 ML Vial ONE (13:35)
[2018-07-23] MEDS ORDERED: Mannitol 12.5 GM/50 ML ONE (13:35)
[2018-07-23] MEDS ORDERED: Dexamethasone 20 MG/5 ML VIAL ONE (13:35)
[2018-07-23] MEDS ORDERED: Magnesium 5 GM/10 ML VIAL ONE (13:35)
[2018-07-23] MEDS ORDERED: Glycopyrrolate 0.2 MG/ML 5 ML SYRINGE ONE (13:35)
[2018-07-23] MEDS ORDERED: Lidocaine 2% PF 100 mg/5 ml Syringe ONE (13:35)
[2018-07-23] MEDS ORDERED: Heparin 30,000 units/30 ml VIAL ONE (13:35)
[2018-07-23] MEDS ORDERED: Protamine Sulfate 250 MG/25 ML VIAL ONE (13:35)
[2018-07-23] MEDS ORDERED: Thrombin 5000 UNITS/5 ML VIAL ONE (13:35)
[2018-07-23] MEDS ORDERED: Papaverine 60 MG/2 ML VIAL ONE (13:35)
[2018-07-23] MEDS ORDERED: Cardioplegic Soln 1,000 ML BAG ONE (13:35)
[2018-07-23] MEDS ORDERED: Heparin 5,000 UNITS/ML VIAL ONE (13:35)
[2018-07-23] MEDS ORDERED: Sodium Bicarb 50 MEQ/50 ML VIAL ONE (13:35)
[2018-07-23] MEDS ORDERED: PROPOFOL 200 MG/20 ML VIAL ONE (13:35)
[2018-07-23] MEDS ORDERED: Aminocaproic Acid 5 GM/20 ML VIAL ONE (13:35)
[2018-07-23] MEDS ORDERED: Potassium Chloride 60 MEQ/30 ML VIAL ONE (13:35)
[2018-07-23] MEDS ORDERED: Calcium Chloride 1 GM/10 ML Abboject SYRINGE ONE (13:35)
[2018-07-23] MEDS ORDERED: Nitroglycerin 50 MG/250 ML BOT ONE (13:35)
[2018-07-23] MEDS ORDERED: HYDROcodone/Acetaminophen 5/325 mg Tablet PO PRN ×4 (14:07→14:09)
[2018-07-23] MEDS ORDERED: Promethazine HCl 25 MG/ML VIAL IM PRN ×2 (14:07→16:05)
[2018-07-23] MEDS ORDERED: Ondansetron PF 4 MG/2 ML Vial IVP PRN ×2 (14:07→14:09)
[2018-07-23] MEDS ORDERED: Fentanyl 100 MCG/2 ML VIAL SLOW IVP PRN (14:09)
[2018-07-23] MEDS ORDERED: Sodium Chloride 0.9% 20 ML ONE (14:21)
[2018-07-23] MEDS ORDERED: hydrALAZINE 20 MG/ML VIAL ONE (15:25)
[2018-07-23] MEDS ORDERED: Ondansetron HCl/PF 4 MG/2 ML Vial IVP PRN (16:05)
[2018-07-23] MEDS ORDERED: Promethazine HCl 25 MG/ML VIAL SLOW IVP PRN (16:05)
[2018-07-23] MEDS ORDERED: Bupivacaine HCl 0.5%/Epinephrine 1:200,000/PF 30 ml Vial ONE (16:05)
[2018-07-23] MEDS ORDERED: HYDROmorphone 2 MG/ML VIAL SLOW IVP PRN (16:05)
[2018-07-23] MEDS ORDERED: Fentanyl 100 MCG/2 ML VIAL ONE (16:57)
--- NOTE | 2018-07-23 17:45 | RAD ---
PORTABLE CHEST: 07/23/18 HISTORY: Post thoracotomy. COMPARISON: 07/22/18 exam. The left chest tube has been repositioned. The tip is now in the left lung apex with some persistent left sided pneumothorax not appreciably changed since the prior exam. IMPRESSION: Repositioning of left sided chest tube. Left sided pneumothorax is essentially stable. POS: [facility]
[2018-07-23] MEDS: cefTRIAXone\\ROCEPHIN 1 GM in Sodium Chloride 0.9% 100 ML IVPB SCH (18:01)
[2018-07-23] MEDS: Fentanyl 100 MCG/2 ML VIAL SLOW IVP PRN ×2 (18:01→20:57)
--- NOTE | 2018-07-23 18:49 | PDOC.PN ---
- Subjective Encounter Start Date: 07/23/18 Encounter Start Time: 09:00 Subjective: pt gone for surgery - Objective Resuscitation Status: Resuscitation Status FULL:Full Resuscitation Vital Signs & Weight: Vital Signs (12 hours) Temp Pulse Resp BP Pulse Ox 07/23/18 17:51 94 L 07/23/18 17:34 97.7 F 07/23/18 08:00 92 L 07/23/18 06:51 98.1 F 89 22 H 154/83 H 92 L Weight Weight 232 lb Most Recent Monitor Data Heart Rate from ECG 99 NIBP 150/80 NIBP BP-Mean 103 Respiration from ECG 26 SpO2 92 I&O: 07/22/18 07/23/18 07/24/18 06:59 06:59 06:59 Intake Total 240 920 Output Total 750 1970 150 Balance -510 -1050 -150 Result Diagrams: 07/23/18 03:30 07/20/18 09:58 Additional Labs: Accuchecks 07/23/18 11:12 POC Glucose 79 Dx/Plan (1) Spontaneous pneumothorax Code(s): J93.83 - OTHER PNEUMOTHORAX Status: Acute (2) Leukocytosis Code(s): D72.829 - ELEVATED WHITE BLOOD CELL COUNT, UNSPECIFIED Status: Acute (3) Pulmonary fibrosis Code(s): J84.10 - PULMONARY FIBROSIS, UNSPECIFIED Status: Acute (4) Hypertension Code(s): I10 - ESSENTIAL (PRIMARY) HYPERTENSION Status: Acute - Plan pt gone for thoracotomy with pleurodesis * .
[2018-07-23] MEDS: Sodium Chloride 0.9% 1,000 ML IV SCH (20:55)
--- NOTE | 2018-07-23 22:19 | OP ---
DATE OF PROCEDURE: 07/23/2018 PROCEDURES PERFORMED: Left thoracoscopic stapling of pleural blebs, left thoracoscopic excisional bi opsy of subpleural lymph nodes, left thoracoscopic combined mechanical and talc pleurodesis, left sub clavian central line placement, multiple intercostal rib blocks. PREOPERATIVE DIAGNOSIS: Spontaneous left pneumothorax with persistent air leak. POSTOPERATIVE DIAGNOSIS: Spontaneous left pneumothorax with persistent air leak. SURGEON: Henry Vega M.D. ANESTHESIA: General endotracheal. INDICATIONS: The patient is a 67-year-old man with pulmonary fibrosis following therapy for lymphoma . He had sudden onset of pleuritic chest pain and shortness of breath and was found to have a large left pneumothorax. His air leak has persisted and he is now taken to the operating room for thoracos copy. FINDINGS: Relatively large bleb at the anterolateral tip of the left upper lobe. There were at leas t 3 subpleural lymph nodes identified, one within the fissure and one in the lower lobe at the fissur e. NARRATIVE REPORT: After informed consent was obtained, the patient was taken to the operating room a nd placed in supine position on the operating table. After induction of general anesthesia and confi rmation of placement of double lumen endotracheal tube, his left upper chest was prepped and draped i n sterile fashion. A triple-lumen central line kit was used to place a left subclavian central line by the Seldinger technique as the patient had poor peripheral IV access. All three ports easily aspi rated and flushed. The line was secured and the patient was turned into the right lateral decubitus position. His left chest was prepped and draped in sterile fashion incorporating the existing chest tube, which was removed after initiating right lung ventilation. The chest tube site was probed with the surgeon's finger and through it a thoracoscopic port and scope were inserted. A port site poste rolaterally was then selected and made with a knife electrocautery and blunt dissection. Through tho se 2 sites, filmy adhesions were taken down and the lung manipulated. An additional incision for a c hest tube exit site was made inferiorly and posterolaterally to the original chest tube site with the manipulations. Some filmy adhesions of the lung to the mediastinum were taken down with a combinati on of blunt dissection and electrocautery dissection. Upon manipulating the lung, retracting it post erolaterally, a large bleb could be appreciated. Further examination of the lungs showed some subple ural lymph nodes and while the lung was obviously , no other obvious blebs could be identifie d to facilitate manipulation. A third incision was made. The bleb was grasped with a grasping force ps and then stapled off with a series of firings of an endoscopic PAM stapling device with SeamGuard pericardial strips placed to sleeves over them. The bleb with the attached relatively normal lung wa s delivered through one of those port sites and then in similar fashion, the lung was grasped near th e two subpleural lymph nodes that are on the lateral aspect of the lower lobe near the fissure and th ey were stapled off in a similar fashion. Blunt dissection was then used to strip away large swath o f the parietal pleura to affect mechanical pleurodesis and then talc was aerosolized into the pleural space. A 32 Lao chest tube was positioned anteriorly and posteriorly at the apex through the rosalio sh chest tube incisions. They were secured to the skin with suture. A 0.5% Marcaine with epinephrin e was used to perform intercostal rib blocks for several interspaces above and below the port sites. Additional Marcaine was infiltrated into the actual incision sites. The posterolateral port site wa s closed in layers of 2-0 Vicryl for the muscle and subcutaneous tissue and then Vicryl subcuticular stitch with skin. The original chest tube site was loosely closed in a similar fashion. The wounds were dressed. The chest tubes were connected to closed suction drainage. The patient was awakened a nd extubated in the operating room and taken to recovery area in good condition.
[2018-07-24] MEDS: Fentanyl 100 MCG/2 ML VIAL SLOW IVP PRN ×4 (00:35→10:49)
[2018-07-24 05:10] LABS: Anion Gap 13 mmol/L (10-20); BUN (Urea Nitrogen) 24 mg/dL (8.4-25.7); Calc. Creatinine Clearance 111 mL/min (70-130); Carbon Dioxide 24 mmol/L (23-31); Chloride 108 mmol/L (98-107); Estimated GFR-MDRD 76; Glucose 106 mg/dL (80-115); Sodium 140 mmol/L (136-145)
[2018-07-24 05:22] LABS: Hemoglobin 15.3 g/dL (14.0-18.0); Mean Corpuscular HGB CONC 31.2 g/dL (32.0-36.0); Mean Corpuscular Hemoglobin 27.5 pg (27.0-31.0); Mean Corpuscular Volume 88.2 fL (78.0-98.0); Platelet Count 274 thou/uL (130-400); Red Blood Cell (RBC) Count 5.56 mill/uL (4.70-6.10); White Blood Cell (WBC) Count 23.3 thou/uL (4.8-10.8)
[2018-07-24 05:23] LABS: Band 12 % (5-11); Lymphocytes 8 % (21-51); MDiff Complete? YES; Monocytes 16 % (0-10); Neutrophil 63 % (42-75); Reactive Lymphocytes 1 % (0-10)
[2018-07-24] MEDS: Sodium Chloride 0.9% 1,000 ML IV SCH ×2 (06:02→16:45)
[2018-07-24] MEDS ORDERED: Acetaminophen 1,000 MG in Premix Bag 1 BAG IVPB SCH (08:00)
[2018-07-24] MEDS: Metoclopramide HCl 10 MG/2 ML VIAL IVP SCH ×3 (09:23→20:34)
[2018-07-24] MEDS: predniSONE 20 MG TAB PO SCH (09:34)
--- NOTE | 2018-07-24 09:37 | RAD ---
SINGLE VIEW OF THE CHEST: Comparison: 07-23-18 History: Status post thoracotomy. FINDINGS: Single view of the chest shows a normal sized cardiomediastinal silhouette. The central venous cathet er and left sided chest tubes are unchanged in position. There is persistent opacity in the left lung which may represent atelectasis. There may be a small trace left pleural effusion. No change has occ urred compared to the prior exam. IMPRESSION: Stable exam. POS: [facility]
--- NOTE | 2018-07-24 09:57 | RAD ---
KUB: Indication: Abdominal distention. Comparison: None. FINDINGS: There is mild gaseous distention of the stomach as well the small and large bowel, which are nonspeci fic. Supine imaging limits evaluation for pneumoperitoneum. There is scattered degenerative change. N o suspicious calcification is evident. IMPRESSION: Mild gaseous distention of the stomach and small bowel and large bowel may reflect a mild ileus. POS: [facility]
[2018-07-24] MEDS: Ketorolac Tromethamine 30 MG/ML VIAL IVP SCH ×2 (11:55→17:30)
[2018-07-24] MEDS: Acetaminophen 500 MG TAB PO SCH ×2 (12:05→17:31)
--- NOTE | 2018-07-24 12:30 | PRG ---
DATE OF SERVICE: 07/24/2018 SERVICE: Pulmonary Medicine. INTERVAL HISTORY: The patient is doing okay after his procedure yesterday. He originally was mottle d and did not look so good. That being said, he quickly perked up after landing in the ICU. This mo rning, he is breathing comfortable. He has some pain whenever he takes a deep breath or coughs. Out side of this, however, he did not have any significant events overnight. PHYSICAL EXAMINATION: VITAL SIGNS: Afebrile, pulse 122, blood pressure 122/82, respirations 18, saturation 98% on 4 liters nasal cannula. GENERAL: The patient is awake and alert, in no apparent distress. LUNGS: Decreased air entry, particularly on the left. There are crackles present bilaterally. No p rolonged expiratory phase or wheezing is appreciated. HEART: Normal rate, regular. ABDOMEN: Soft, nontender, nondistended. Bowel sounds are positive. MUSCULOSKELETAL: No cyanosis or clubbing. There is no pitting in the bilateral lower extremities. NEUROLOGIC: Grossly nonfocal. LABORATORY DATA: WBC 23.2, hemoglobin 15.3, platelets 274,000. Band count is 12% on top of 63% neut rophils. Basic metabolic profile is essentially unremarkable. IMAGING DATA: Chest x-ray demonstrates left-sided thoracostomy drains x2. Left-sided subclavian bora tral venous catheter terminates in a good position. Lung volumes are low. There are interstitial ma rkings that are accentuated on the left. Minimal apical pneumothorax is still present. Abdominal x-ray demonstrates nonspecific bowel gas pattern. ASSESSMENT: 1. Acute on chronic hypoxic respiratory failure, resolved to baseline. 2. Secondary spontaneous pneumothorax, status post thoracoscopic stapling of blebs and talc pleurode sis. 3. 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 4. Previous treatment of lymphoma. 5. Obstructive sleep apnea, mild. DISCUSSION AND PLAN: We will continue supportive care in the postop period. The air leak has resolv ed. The patient has continued to put a little bit of extra fluid out of his chest. Pulmonary or Cri tical Care will continue following along for the duration of this hospital stay. I will give the pat ient some MiraLax, senna-S, and simethicone. My guess he is a touch of an ileus as he has hypoactive bowel sounds, albeit they are present.
[2018-07-24] MEDS ORDERED: Polyethylene Glycol 3350 17 GM Packet PO SCH (12:45)
[2018-07-24] MEDS ORDERED: Senokot S 8.6-50 MG TAB PO SCH (12:45)
[2018-07-24] MEDS: Simethicone Chewable 80 MG TAB PO SCH ×3 (15:16→20:35)
[2018-07-24] MEDS: Senokot S 8.6-50 MG TAB PO SCH (20:34)
[2018-07-25] MEDS: Ketorolac Tromethamine 30 MG/ML VIAL IVP SCH ×5 (00:05→23:13)
[2018-07-25] MEDS: Acetaminophen 500 MG TAB PO SCH ×5 (00:06→23:14)
[2018-07-25] MEDS: Metoclopramide HCl 10 MG/2 ML VIAL IVP SCH ×4 (01:39→20:26)
[2018-07-25] MEDS: Sodium Chloride 0.9% 1,000 ML IV SCH (02:00)
--- NOTE | 2018-07-25 08:53 | RAD ---
PORTABLE CHEST: HISTORY: Postop thoracotomy.. COMPARISON: 07/24/2018 exam. FINDINGS: Heart size is within normal limits. Left-sided chest tubes are in place. Left subclavian line is pr esent. Pleural and parenchymal lung changes of the left lung are stable. IMPRESSION: Stable overall exam. POS: [facility]
[2018-07-25] MEDS: Senokot S 8.6-50 MG TAB PO SCH ×2 (10:35→20:26)
[2018-07-25] MEDS: predniSONE 20 MG TAB PO SCH (10:36)
[2018-07-25] MEDS: Simethicone Chewable 80 MG TAB PO SCH ×2 (10:37→13:20)
[2018-07-25] MEDS: Polyethylene Glycol 3350 17 GM Packet PO SCH (10:37)
--- NOTE | 2018-07-25 10:58 | PRG ---
DATE OF SERVICE: 07/25/2018 SERVICE: Pulmonary Medicine. INTERVAL HISTORY: The patient is doing outstanding from respiratory standpoint. He is breathing comfortably. He has absolutely no complaints of fevers, chills, nausea, vomiting, or diarrhea. Whenever he gets out of the bed in to a chair, he has profound hypoxemia, and shortness of breath. It takes him a lot to recover, but he eventually does. Apparently, these events are fairly scary to watch. That being said, the patient does not feel like this is out of the ordinary per se. PHYSICAL EXAMINATION: VITAL SIGNS: Afebrile. Pulse 89, blood pressure 130/67, respirations 19, saturation 98% on 4 L nasal cannula. GENERAL: The patient is awake, alert, in no apparent distress. LUNGS: Excellent air entry. There is no prolonged expiratory phase. There are crackles present. No wheeze. No rhonchi appreciated. HEART: Normal rate, regular. ABDOMEN: Soft, nontender, nondistended. Bowel sounds are positive. MUSCULOSKELETAL: No cyanosis or clubbing. No pitting in the bilateral lower extremities. NEUROLOGIC: Grossly nonfocal. IMAGING: Chest x-ray demonstrates chest tube x2 in the left chest. There is no interval change. Minimal apical pneumothorax is present. There is a left subclavian central venous catheter in good position. ASSESSMENT: 1. Acute on chronic hypoxic respiratory failure, resolved to baseline. 2. Secondary spontaneous pneumothorax, status post thoracoscopic stapling of leak and talc pleurodesis. 3. 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 4. History of lymphoma. 5. Obstructive sleep apnea, mild. DISCUSSION AND PLAN: I will repeat a CBC and basic metabolic profile tomorrow morning. Pulmonary Critical Care will continue to follow along. Hopefully, the chest tubes will be able to come out today or tomorrow based on their output. The leak has certainly stopped. Pulmonary will continue to follow along. Job ID: [id number]
[2018-07-25] MEDS ORDERED: HYDROcodone/Acetaminophen 5/325 mg Tablet PO PRN (12:07)
[2018-07-25] MEDS ORDERED: Mineral Oil ENEMA PR PRN (12:07)
[2018-07-25] MEDS ORDERED: Acetaminophen 325 MG TAB PO PRN (12:07)
[2018-07-25] MEDS ORDERED: Bisacodyl 10 MG SUPP PR PRN (12:07)
[2018-07-25] MEDS ORDERED: Acetaminophen 650 MG Suppository PR PRN (12:07)
[2018-07-25] MEDS ORDERED: Milk Of Magnesia 30 ML UDCUP PO PRN (12:07)
[2018-07-25] MEDS ORDERED: Ondansetron PF 4 MG/2 ML Vial IVP PRN (12:07)
[2018-07-25] MEDS ORDERED: Rosuvastatin 10 MG TAB PO SCH ×2 (12:15→21:00)
[2018-07-25] MEDS: HYDROcodone/Acetaminophen 5/325 mg Tablet PO PRN (18:20)
[2018-07-25] MEDS: Mometasone/Formoterol 120 PUFF INHALER INH SCH (18:20)
[2018-07-25] MEDS: Famotidine 20 MG TAB PO SCH (20:26)
[2018-07-26] MEDS: Metoclopramide HCl 10 MG/2 ML VIAL IVP SCH (00:17)
[2018-07-26] MEDS: Ketorolac Tromethamine 30 MG/ML VIAL IVP SCH (05:39)
[2018-07-26 05:53] LABS: #Eosinphils 0.1 thou/uL (0.0-0.7); #Lymphocytes 1.5 thou/uL (1.20-3.40); #Monocytes 1.6 thou/uL (0.11-0.59); #Neutrophils 14.2 thou/uL (1.40-6.50); %Basophils 0.1 % (0.0-1.0); %Eosinophils 0.6 % (0.0-10.0); %Lymphocytes 8.7 % (21.0-51.0); %Monocytes 8.9 % (0.0-10.0); %Neutrophils 81.6 % (42.0-75.0); Hemoglobin 12.2 g/dL (14.0-18.0); Mean Corpuscular HGB CONC 31.5 g/dL (32.0-36.0); Mean Corpuscular Hemoglobin 27.8 pg (27.0-31.0); Mean Corpuscular Volume 88.3 fL (78.0-98.0); Mean Platelet Volume 8.7 fL (7.4-10.4); Platelet Count 234 thou/uL (130-400); RBC Distribution Width 13.8 % (11.5-14.5); Red Blood Cell (RBC) Count 4.39 mill/uL (4.70-6.10); White Blood Cell (WBC) Count 17.4 thou/uL (4.8-10.8)
[2018-07-26] MEDS ORDERED: Acetaminophen 325 MG TAB PO PRN (06:00)
[2018-07-26 06:08] LABS: Anion Gap 12 mmol/L (10-20); BUN (Urea Nitrogen) 32 mg/dL (8.4-25.7); Calc. Creatinine Clearance 93 mL/min (70-130); Calcium 8.9 mg/dL (7.8-10.44); Carbon Dioxide 26 mmol/L (23-31); Chloride 102 mmol/L (98-107); Estimated GFR-MDRD 62; Glucose 114 mg/dL (80-115); Magnesium 2.5 mg/dL (1.6-2.6); Potassium 4.5 mmol/L (3.5-5.1); Sodium 135 mmol/L (136-145)
[2018-07-26] MEDS: Mometasone/Formoterol 120 PUFF INHALER INH SCH ×2 (06:40→18:37)
--- NOTE | 2018-07-26 08:07 | RAD ---
PORTABLE CHEST 1 VIEW: DATE: 07/26/2018. TIME: 4:48 a.m. HISTORY: Status post thoracotomy. FINDINGS/IMPRESSION: No significant interval change is seen since the previous day's exam. POS: [facility]
[2018-07-26] MEDS: Senokot S 8.6-50 MG TAB PO SCH ×2 (10:04→20:35)
[2018-07-26] MEDS: Aspirin 81 mg Enteric Coated Tablet PO SCH (10:04)
[2018-07-26] MEDS: predniSONE 20 MG TAB PO SCH (10:05)
[2018-07-26] MEDS: Famotidine 20 MG TAB PO SCH ×2 (10:05→20:35)
[2018-07-26] MEDS: Enoxaparin Sodium 40 MG/0.4 ML SYRINGE SC SCH (10:07)
[2018-07-26] MEDS: Polyethylene Glycol 3350 17 GM Packet PO SCH (10:09)
[2018-07-26] MEDS ORDERED: Bisacodyl 5 MG TAB PO PRN (10:22)
[2018-07-26] MEDS ORDERED: Furosemide 20 MG/2 ML VIAL SLOW IVP SCH (10:45)
[2018-07-26 12:29] VITALS: BMI 30.7
--- NOTE | 2018-07-26 14:29 | PDOC.PN ---
- Subjective Encounter Start Date: 07/26/18 Encounter Start Time: 10:00 Subjective: pt up in bed has mild sob - Objective Resuscitation Status - Order Detail: 07/24/18 12:17 Resuscitation Status Routine Resuscitation Status: FULL: Full Resuscitation Discussed with: per previous MD order Vital Signs & Weight: Vital Signs (12 hours) Temp Pulse Resp Pulse Ox 07/26/18 13:33 98 27 H 97 07/26/18 06:39 99 07/26/18 06:37 87 20 98 07/26/18 04:00 98.5 F Weight Admit Weight 232 lb Weight 232 lb 9.6 oz Most Recent Monitor Data Heart Rate from ECG 71 NIBP 112/66 NIBP BP-Mean 81 Respiration from ECG 14 SpO2 97 I&O: 07/25/18 07/26/18 07/27/18 06:59 06:59 06:59 Intake Total 1860 1045 Output Total 765 960 Balance 1095 85 Result Diagrams: 07/26/18 05:40 07/26/18 05:40 Phys Exam - Physical Examination Neck: no nodes, no JVD, supple, full ROM diminished breath sounds to right lung area Cardiovascular: RRR, no significant murmur, no rub, gallop, irregular Gastrointestinal: soft, non-tender, no distention, positive bowel sounds Dx/Plan (1) Spontaneous pneumothorax Code(s): J93.83 - OTHER PNEUMOTHORAX Status: Acute (2) Leukocytosis Code(s): D72.829 - ELEVATED WHITE BLOOD CELL COUNT, UNSPECIFIED Status: Acute (3) Pulmonary fibrosis Code(s): J84.10 - PULMONARY FIBROSIS, UNSPECIFIED Status: Acute (4) Hypertension Code(s): I10 - ESSENTIAL (PRIMARY) HYPERTENSION Status: Acute - Plan will discontinue steroids -: will give one dose of lasix -: continue to monitor wbc if worsen in am will consider abx * . Review of Systems - Review of Systems Respiratory: Shortness of Breath Cardiovascular: negative: chest pain, palpitations, orthopnea, paroxysmal nocturnal dyspnea, edema, light headedness, other Gastrointestinal: negative: Nausea, Vomiting, Abdominal Pain, Diarrhea, Constipation, Melena, Hematochezia, Other - Medications/Allergies Allergies/Adverse Reactions: Allergies Allergy/AdvReac Type Severity Reaction Status Date / Time No Known Drug Allergies Allergy Verified 08/29/17 20:36 Medications: Current Medications Acetaminophen (Tylenol) 650 mg PO Q4H PRN PRN Reason: Fever > 38.5C, LUCIANO or mild pain Acetaminophen (Tylenol) 650 mg [place] Q4H PRN PRN Reason: Fever > 38.5C, [place] or mild pain Hydrocodone Bitart/Acetaminophen ([place] 5/325) 1 tab PO Q4H PRN PRN Reason: Moderate Pain (4-6) Hydrocodone Bitart/Acetaminophen ([place] 5/325) 2 tab PO Q4H PRN PRN Reason: Severe Pain (7-10) Last Admin: 07/25/18 18:20 Dose: 2 tab Albuterol/Ipratropium (Duoneb) 3 ml NEB [id number] [facility] Last Admin: 07/26/18 13:33 Dose: 3 ml Albuterol/Ipratropium (Duoneb) 3 ml NEB [id number] PRN PRN Reason: Wheezing Aspirin (Ecotrin) 81 mg PO DAILY [facility] Last Admin: 07/26/18 10:04 Dose: 81 mg Bisacodyl (Dulcolax) 10 mg [place] DAILYPRN PRN PRN Reason: Constipation Bisacodyl (Dulcolax) 10 mg PO DAILYPRN PRN PRN Reason: Constipation Last Admin: 07/26/18 11:40 Dose: 10 mg Diltiazem HCl (Cardizem Cd) 360 mg PO DAILY [facility] Last Admin: 07/26/18 10:07 Dose: 360 mg Enoxaparin Sodium (Lovenox) 40 mg SC 0900 [facility] Last Admin: 07/26/18 10:07 Dose: 40 mg Famotidine (Pepcid) 20 mg PO BID [facility] Last Admin: 07/26/18 10:05 Dose: 20 mg Fentanyl (Sublimaze) 25 mcg SLOW IVP Q2H PRN PRN Reason: Moderate Pain (4-6) Fentanyl (Sublimaze) 50 mcg SLOW IVP Q2H PRN PRN Reason: Severe Pain (7-10) Last Admin: 07/24/18 10:49 Dose: 50 mcg Fluticasone Propionate (Flonase Nasal [place]) 1 gm NASAL DAILY [facility] Magnesium Hydroxide (Milk Of Magnesium) 30 ml PO HSPRN PRN PRN Reason: Constipation Mineral Oil (Fleet Mineral Oil) 133 ml [place] Q24H PRN PRN Reason: Constipation Mometasone Furoate/Formoterol Fumar (Dulera 100 Mcg/5 Mcg Inhaler) 2 puff INH BID-RT [facility] Last Admin: 07/26/18 06:40 Dose: 2 puff Ondansetron HCl (Zofran) 4 mg IVP Q6H PRN PRN Reason: Nausea/Vomiting Pantoprazole Sodium (Protonix) 40 mg PO DAILY [facility] Last Admin: 07/26/18 10:07 Dose: 40 mg Polyethylene Glycol (Miralax) 17 gm PO DAILY [facility] Last Admin: 07/26/18 10:09 Dose: 17 gm Promethazine HCl (Phenergan) 12.5 mg IM Q4H PRN PRN Reason: Nausea/Vomiting Rosuvastatin Calcium (Crestor) 10 mg PO Q2DAYS [facility] Last Admin: 07/25/18 20:23 Dose: Not Given Senna/Docusate Sodium (Senokot S) 2 tab PO BID [facility] Last Admin: 07/26/18 10:04 Dose: 2 tab Simethicone (Mylicon Chewable) 80 mg PO TIDPRN PRN PRN Reason: . Last Admin: 07/22/18 21:58 Dose: 80 mg Sodium Chloride ([place] Nasal [place] 0.65%) 0 ml EA NARE PRN PRN PRN Reason: Nasal Dryness Last Admin: 07/19/18 21:47 Dose: 1 spr Sodium Chloride (Flush - Normal Saline) 10 ml IVF Q12HR [facility] Last Admin: 07/26/18 10:11 Dose: 10 ml
--- NOTE | 2018-07-26 14:32 | PDOC.PN ---
- Subjective Encounter Start Date: 07/25/18 Encounter Start Time: 11:15 Subjective: pt up in chair feels good - Objective Resuscitation Status - Order Detail: 07/24/18 12:17 Resuscitation Status Routine Resuscitation Status: FULL: Full Resuscitation Discussed with: per previous MD order Vital Signs & Weight: Vital Signs (12 hours) Temp Pulse Resp Pulse Ox 07/26/18 13:33 98 27 H 97 07/26/18 06:39 99 07/26/18 06:37 87 20 98 07/26/18 04:00 98.5 F Weight Admit Weight 232 lb Weight 232 lb 9.6 oz Most Recent Monitor Data Heart Rate from ECG 71 NIBP 112/66 NIBP BP-Mean 81 Respiration from ECG 14 SpO2 97 I&O: 07/25/18 07/26/18 07/27/18 06:59 06:59 06:59 Intake Total 1860 1045 Output Total 765 960 Balance 1095 85 Result Diagrams: 07/26/18 05:40 07/26/18 05:40 Phys Exam - Physical Examination Neck: no nodes, no JVD, supple, full ROM diminished breath sound to left lung Cardiovascular: RRR, no significant murmur, no rub, gallop, irregular Gastrointestinal: soft, non-tender, no distention, positive bowel sounds Dx/Plan (1) Spontaneous pneumothorax Code(s): J93.83 - OTHER PNEUMOTHORAX Status: Acute (2) Leukocytosis Code(s): D72.829 - ELEVATED WHITE BLOOD CELL COUNT, UNSPECIFIED Status: Acute (3) Pulmonary fibrosis Code(s): J84.10 - PULMONARY FIBROSIS, UNSPECIFIED Status: Acute (4) Hypertension Code(s): I10 - ESSENTIAL (PRIMARY) HYPERTENSION Status: Acute - Plan pt has not had bm for 3- 4 days will add prn meds -: mild leukocytosis will montior no fever * . Review of Systems - Review of Systems Respiratory: Shortness of Breath Cardiovascular: negative: chest pain, palpitations, orthopnea, paroxysmal nocturnal dyspnea, edema, light headedness, other Gastrointestinal: negative: Nausea, Vomiting, Abdominal Pain, Diarrhea, Constipation, Melena, Hematochezia, Other - Medications/Allergies Allergies/Adverse Reactions: Allergies Allergy/AdvReac Type Severity Reaction Status Date / Time No Known Drug Allergies Allergy Verified 08/29/17 20:36 Medications: Current Medications Acetaminophen (Tylenol) 650 mg PO Q4H PRN PRN Reason: Fever > 38.5C, [place] or mild pain Acetaminophen (Tylenol) 650 mg [place] Q4H PRN PRN Reason: Fever > 38.5C, [place] or mild pain Hydrocodone Bitart/Acetaminophen ([place] 5/325) 1 tab PO Q4H PRN PRN Reason: Moderate Pain (4-6) Hydrocodone Bitart/Acetaminophen ([place] 5/325) 2 tab PO Q4H PRN PRN Reason: Severe Pain (7-10) Last Admin: 07/25/18 18:20 Dose: 2 tab Albuterol/Ipratropium (Duoneb) 3 ml NEB [id number] [facility] Last Admin: 07/26/18 13:33 Dose: 3 ml Albuterol/Ipratropium (Duoneb) 3 ml NEB [id number] PRN PRN Reason: Wheezing Aspirin (Ecotrin) 81 mg PO DAILY [facility] Last Admin: 07/26/18 10:04 Dose: 81 mg Bisacodyl (Dulcolax) 10 mg [place] DAILYPRN PRN PRN Reason: Constipation Bisacodyl (Dulcolax) 10 mg PO DAILYPRN PRN PRN Reason: Constipation Last Admin: 07/26/18 11:40 Dose: 10 mg Diltiazem HCl (Cardizem Cd) 360 mg PO DAILY [facility] Last Admin: 07/26/18 10:07 Dose: 360 mg Enoxaparin Sodium (Lovenox) 40 mg SC 0900 [facility] Last Admin: 07/26/18 10:07 Dose: 40 mg Famotidine (Pepcid) 20 mg PO BID [facility] Last Admin: 07/26/18 10:05 Dose: 20 mg Fentanyl (Sublimaze) 25 mcg SLOW IVP Q2H PRN PRN Reason: Moderate Pain (4-6) Fentanyl (Sublimaze) 50 mcg SLOW IVP Q2H PRN PRN Reason: Severe Pain (7-10) Last Admin: 07/24/18 10:49 Dose: 50 mcg Fluticasone Propionate (Flonase Nasal [place]) 1 gm NASAL DAILY [facility] Magnesium Hydroxide (Milk Of Magnesium) 30 ml PO HSPRN PRN PRN Reason: Constipation Mineral Oil (Fleet Mineral Oil) 133 ml [place] Q24H PRN PRN Reason: Constipation Mometasone Furoate/Formoterol Fumar (Dulera 100 Mcg/5 Mcg Inhaler) 2 puff INH BID-RT [facility] Last Admin: 07/26/18 06:40 Dose: 2 puff Ondansetron HCl (Zofran) 4 mg IVP Q6H PRN PRN Reason: Nausea/Vomiting Pantoprazole Sodium (Protonix) 40 mg PO DAILY [facility] Last Admin: 07/26/18 10:07 Dose: 40 mg Polyethylene Glycol (Miralax) 17 gm PO DAILY [facility] Last Admin: 07/26/18 10:09 Dose: 17 gm Promethazine HCl (Phenergan) 12.5 mg IM Q4H PRN PRN Reason: Nausea/Vomiting Rosuvastatin Calcium (Crestor) 10 mg PO Q2DAYS [facility] Last Admin: 07/25/18 20:23 Dose: Not Given Senna/Docusate Sodium (Senokot S) 2 tab PO BID [facility] Last Admin: 07/26/18 10:04 Dose: 2 tab Simethicone (Mylicon Chewable) 80 mg PO TIDPRN PRN PRN Reason: . Last Admin: 07/22/18 21:58 Dose: 80 mg Sodium Chloride ([place] Nasal [place] 0.65%) 0 ml EA NARE PRN PRN PRN Reason: Nasal Dryness Last Admin: 07/19/18 21:47 Dose: 1 spr Sodium Chloride (Flush - Normal Saline) 10 ml IVF Q12HR [facility] Last Admin: 07/26/18 10:11 Dose: 10 ml
--- NOTE | 2018-07-26 14:34 | PDOC.PN ---
- Subjective Encounter Start Date: 07/24/18 Encounter Start Time: 11:45 Subjective: pt up in bed does not feel well - Objective Resuscitation Status - Order Detail: 07/24/18 12:17 Resuscitation Status Routine Resuscitation Status: FULL: Full Resuscitation Discussed with: per previous MD order Vital Signs & Weight: Vital Signs (12 hours) Temp Pulse Resp Pulse Ox 07/26/18 13:33 98 27 H 97 07/26/18 06:39 99 07/26/18 06:37 87 20 98 07/26/18 04:00 98.5 F Weight Admit Weight 232 lb Weight 232 lb 9.6 oz Most Recent Monitor Data Heart Rate from ECG 71 NIBP 112/66 NIBP BP-Mean 81 Respiration from ECG 14 SpO2 97 I&O: 07/25/18 07/26/18 07/27/18 06:59 06:59 06:59 Intake Total 1860 1045 Output Total 765 960 Balance 1095 85 Result Diagrams: 07/26/18 05:40 07/26/18 05:40 Phys Exam - Physical Examination Neck: no nodes, no JVD, supple, full ROM diminished breath sound to left lung Cardiovascular: RRR, no significant murmur, no rub, gallop, irregular Gastrointestinal: soft, non-tender, no distention, positive bowel sounds Dx/Plan (1) Spontaneous pneumothorax Code(s): J93.83 - OTHER PNEUMOTHORAX Status: Acute (2) Leukocytosis Code(s): D72.829 - ELEVATED WHITE BLOOD CELL COUNT, UNSPECIFIED Status: Acute (3) Pulmonary fibrosis Code(s): J84.10 - PULMONARY FIBROSIS, UNSPECIFIED Status: Acute (4) Hypertension Code(s): I10 - ESSENTIAL (PRIMARY) HYPERTENSION Status: Acute - Plan s/p thoracotomy with pelurodesis -: encouraged to take prn meds * . Review of Systems - Review of Systems Respiratory: Shortness of Breath Cardiovascular: negative: chest pain, palpitations, orthopnea, paroxysmal nocturnal dyspnea, edema, light headedness, other Gastrointestinal: negative: Nausea, Vomiting, Abdominal Pain, Diarrhea, Constipation, Melena, Hematochezia, Other - Medications/Allergies Allergies/Adverse Reactions: Allergies Allergy/AdvReac Type Severity Reaction Status Date / Time No Known Drug Allergies Allergy Verified 08/29/17 20:36 Medications: Current Medications Acetaminophen (Tylenol) 650 mg PO Q4H PRN PRN Reason: Fever > 38.5C, LUCIANO or mild pain Acetaminophen (Tylenol) 650 mg [place] Q4H PRN PRN Reason: Fever > 38.5C, LUCIANO or mild pain Hydrocodone Bitart/Acetaminophen ([place] 5/325) 1 tab PO Q4H PRN PRN Reason: Moderate Pain (4-6) Hydrocodone Bitart/Acetaminophen ([place] 5/325) 2 tab PO Q4H PRN PRN Reason: Severe Pain (7-10) Last Admin: 07/25/18 18:20 Dose: 2 tab Albuterol/Ipratropium (Duoneb) 3 ml NEB [id number] [facility] Last Admin: 07/26/18 13:33 Dose: 3 ml Albuterol/Ipratropium (Duoneb) 3 ml NEB [id number] PRN PRN Reason: Wheezing Aspirin (Ecotrin) 81 mg PO DAILY [facility] Last Admin: 07/26/18 10:04 Dose: 81 mg Bisacodyl (Dulcolax) 10 mg [place] DAILYPRN PRN PRN Reason: Constipation Bisacodyl (Dulcolax) 10 mg PO DAILYPRN PRN PRN Reason: Constipation Last Admin: 07/26/18 11:40 Dose: 10 mg Diltiazem HCl (Cardizem Cd) 360 mg PO DAILY [facility] Last Admin: 07/26/18 10:07 Dose: 360 mg Enoxaparin Sodium (Lovenox) 40 mg SC 0900 [facility] Last Admin: 07/26/18 10:07 Dose: 40 mg Famotidine (Pepcid) 20 mg PO BID [facility] Last Admin: 07/26/18 10:05 Dose: 20 mg Fentanyl (Sublimaze) 25 mcg SLOW IVP Q2H PRN PRN Reason: Moderate Pain (4-6) Fentanyl (Sublimaze) 50 mcg SLOW IVP Q2H PRN PRN Reason: Severe Pain (7-10) Last Admin: 07/24/18 10:49 Dose: 50 mcg Fluticasone Propionate (Flonase Nasal [place]) 1 gm NASAL DAILY [facility] Magnesium Hydroxide (Milk Of Magnesium) 30 ml PO HSPRN PRN PRN Reason: Constipation Mineral Oil (Fleet Mineral Oil) 133 ml [place] Q24H PRN PRN Reason: Constipation Mometasone Furoate/Formoterol Fumar (Dulera 100 Mcg/5 Mcg Inhaler) 2 puff INH BID-RT [facility] Last Admin: 07/26/18 06:40 Dose: 2 puff Ondansetron HCl (Zofran) 4 mg IVP Q6H PRN PRN Reason: Nausea/Vomiting Pantoprazole Sodium (Protonix) 40 mg PO DAILY [facility] Last Admin: 07/26/18 10:07 Dose: 40 mg Polyethylene Glycol (Miralax) 17 gm PO DAILY [facility] Last Admin: 07/26/18 10:09 Dose: 17 gm Promethazine HCl (Phenergan) 12.5 mg IM Q4H PRN PRN Reason: Nausea/Vomiting Rosuvastatin Calcium (Crestor) 10 mg PO Q2DAYS [facility] Last Admin: 07/25/18 20:23 Dose: Not Given Senna/Docusate Sodium (Senokot S) 2 tab PO BID [facility] Last Admin: 07/26/18 10:04 Dose: 2 tab Simethicone (Mylicon Chewable) 80 mg PO TIDPRN PRN PRN Reason: . Last Admin: 07/22/18 21:58 Dose: 80 mg Sodium Chloride ([place] Nasal [place] 0.65%) 0 ml EA NARE PRN PRN PRN Reason: Nasal Dryness Last Admin: 07/19/18 21:47 Dose: 1 spr Sodium Chloride (Flush - Normal Saline) 10 ml IVF Q12HR [facility] Last Admin: 07/26/18 10:11 Dose: 10 ml
[2018-07-26] MEDS: HYDROcodone/Acetaminophen 5/325 mg Tablet PO PRN ×2 (17:54→23:59)
[2018-07-27 03:43] LABS: #Eosinphils 0.2 thou/uL (0.0-0.7); #Lymphocytes 3.1 thou/uL (1.20-3.40); #Monocytes 1.9 thou/uL (0.11-0.59); #Neutrophils 12.2 thou/uL (1.40-6.50); %Basophils 0.2 % (0.0-1.0); %Monocytes 10.8 % (0.0-10.0); %Neutrophils 69.9 % (42.0-75.0); Hemoglobin 12.1 g/dL (14.0-18.0); Mean Corpuscular HGB CONC 32.7 g/dL (32.0-36.0); Mean Corpuscular Hemoglobin 28.8 pg (27.0-31.0); Mean Corpuscular Volume 88.2 fL (78.0-98.0); Mean Platelet Volume 8.4 fL (7.4-10.4); Platelet Count 255 thou/uL (130-400); RBC Distribution Width 13.7 % (11.5-14.5); Red Blood Cell (RBC) Count 4.22 mill/uL (4.70-6.10); White Blood Cell (WBC) Count 17.4 thou/uL (4.8-10.8)
[2018-07-27 04:23] LABS: Anion Gap 11 mmol/L (10-20); BUN (Urea Nitrogen) 21 mg/dL (8.4-25.7); Calc. Creatinine Clearance 110 mL/min (70-130); Carbon Dioxide 26 mmol/L (23-31); Chloride 102 mmol/L (98-107); Estimated GFR-MDRD 75; Glucose 107 mg/dL (80-115); Sodium 135 mmol/L (136-145)
[2018-07-27] MEDS: Mometasone/Formoterol 120 PUFF INHALER INH SCH (07:48)
--- NOTE | 2018-07-27 08:55 | RAD ---
UPRIGHT PORTABLE CHEST 1 VIEW: HISTORY: A 67-year-old male with a history of status post thoracotomy. COMPARISON: 07/26/2018. FINDINGS: The previously noted left chest tube has been removed. Left subclavian catheter remains in place. S table fairly extensive parenchymal opacity changes in the left lung and some minimal parenchymal macario ges in the right mid and lower lung zone. Left costophrenic angle blunting. No significant pneumoth orax. IMPRESSION: Removal of the left chest tube. No significant pneumothorax. Otherwise stable appearance. Continue d short-term followup for clearing or stability. POS: OFF
[2018-07-27] MEDS ORDERED: Fluticasone Propionate Nasal Spray 16 gm Bottle NASAL SCH (09:00)
[2018-07-27] MEDS: Famotidine 20 MG TAB PO SCH (09:18)
[2018-07-27] MEDS: Aspirin 81 mg Enteric Coated Tablet PO SCH (09:18)
[2018-07-27] MEDS: Senokot S 8.6-50 MG TAB PO SCH (09:18)
[2018-07-27] MEDS: Enoxaparin Sodium 40 MG/0.4 ML SYRINGE SC SCH (09:19)
[2018-07-27] MEDS: Polyethylene Glycol 3350 17 GM Packet PO SCH (09:20)
--- NOTE | 2018-07-27 10:26 | PRG ---
DATE OF SERVICE: 07/26/2018 SERVICE: Pulmonary Medicine. INTERVAL HISTORY: The patient is doing really well from a respiratory standpoint. He is breathing much more comfortably. His pain is much better. His output from the chest tube is less than 10 mL over the last 12 hours. Otherwise, there has been no interval change to his condition. He is actually fairly comfortable with where things are right now. PHYSICAL EXAMINATION: VITAL SIGNS: Afebrile. Pulse 98, blood pressure 111/74, respirations, and saturation 98% on 4 L nasal cannula. GENERAL: The patient is awake and alert, in no apparent distress. LUNGS: Decent air entry. Crackles are present. There is no prolonged expiratory phase or wheezing present. HEART: Normal rate and regular. ABDOMEN: Soft, nontender, and nondistended. Bowel sounds are positive. MUSCULOSKELETAL: No cyanosis or clubbing. There is no pitting in the bilateral lower extremities noted. NEUROLOGIC: Grossly nonfocal. LABORATORY DATA: WBC 17.4, hemoglobin 12.2, and platelets 234,000. Basic metabolic profile is essentially unremarkable. Creatinine 1.18 and magnesium 2.5. IMAGING STUDIES: Chest x-ray demonstrates left-sided thoracostomy tubes x2. There is opacification throughout the left lung, which is slightly asymmetric, superimposed on top of the chronic lung changes. ASSESSMENT: 1. Acute on chronic hypoxic respiratory failure, resolved to baseline. 2. Secondary spontaneous pneumothorax, status post thoracoscopic stapling of leak and [place] pleurodesis. 3. 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 4. History of lymphoma. 5. Obstructive sleep apnea, mild. DISCUSSION AND PLAN: We will continue supportive care. Hopefully, the chest tubes will be able to come out today. The pathology is negative for any significant malignancy, chronic changes were otherwise identified. At this point, the patient is stable for transition to the surgical unit. I will continue to follow while he remains inhouse. Job ID: [id number] [facility]
--- NOTE | 2018-07-27 14:21 | PDOC.PN ---
- Subjective Encounter Start Date: 07/27/18 Encounter Start Time: 14:00 Subjective: pt up in chair feels well - Objective Resuscitation Status - Order Detail: 07/24/18 12:17 Resuscitation Status Routine Resuscitation Status: FULL: Full Resuscitation Discussed with: per previous MD order Vital Signs & Weight: Vital Signs (12 hours) Temp Pulse Resp BP Pulse Ox 07/27/18 13:47 93 28 H 96 07/27/18 08:00 98.3 F 95 16 130/68 98 07/27/18 07:50 81 18 07/27/18 04:00 97.9 F Weight Admit Weight 232 lb Weight 229 lb 8 oz Most Recent Monitor Data Heart Rate from ECG 75 NIBP 130/68 NIBP BP-Mean 88 Respiration from ECG 14 SpO2 98 I&O: 07/26/18 07/27/18 07/28/18 06:59 06:59 06:59 Intake Total 1045 2080 Output Total 960 905 500 Balance 85 1175 -500 Result Diagrams: 07/27/18 03:30 07/27/18 03:25 Phys Exam - Physical Examination Neck: no nodes, no JVD, supple, full ROM mild rhonchi all over Cardiovascular: RRR, no significant murmur, no rub, gallop, irregular Gastrointestinal: soft, non-tender, no distention, positive bowel sounds Musculoskeletal: no edema, pulses present, edema present Dx/Plan (1) Spontaneous pneumothorax Code(s): J93.83 - OTHER PNEUMOTHORAX Status: Acute (2) Leukocytosis Code(s): D72.829 - ELEVATED WHITE BLOOD CELL COUNT, UNSPECIFIED Status: Acute (3) Pulmonary fibrosis Code(s): J84.10 - PULMONARY FIBROSIS, UNSPECIFIED Status: Acute (4) Hypertension Code(s): I10 - ESSENTIAL (PRIMARY) HYPERTENSION Status: Acute - Plan pt continues to have elevated wbc, afebrile -: spoke with pt that if he gets a fever or does not feel well to come in -: will give him cbc to check his lab work. he will follow up with his -: primary care doctor next week * . Review of Systems - Review of Systems Respiratory: negative: Cough, Dry, Shortness of Breath, Hemoptysis, SOB with Excertion, Pleuritic Pain, Sputum, Wheezing Cardiovascular: negative: chest pain, palpitations, orthopnea, paroxysmal nocturnal dyspnea, edema, light headedness, other Gastrointestinal: negative: Nausea, Vomiting, Abdominal Pain, Diarrhea, Constipation, Melena, Hematochezia, Other Genitourinary: negative: Dysuria, Frequency, Incontinence, Hematuria, Retention , Other - Medications/Allergies Allergies/Adverse Reactions: Allergies Allergy/AdvReac Type Severity Reaction Status Date / Time No Known Drug Allergies Allergy Verified 08/29/17 20:36 Medications: Current Medications Acetaminophen (Tylenol) 650 mg PO Q4H PRN PRN Reason: Fever > 38.5C, [place]CIANO or mild pain Acetaminophen (Tylenol) 650 mg [place] Q4H PRN PRN Reason: Fever > 38.5C, [place]CIANO or mild pain Hydrocodone Bitart/Acetaminophen ([place] 5/325) 1 tab PO Q4H PRN PRN Reason: Moderate Pain (4-6) Hydrocodone Bitart/Acetaminophen ([place] 5/325) 2 tab PO Q4H PRN PRN Reason: Severe Pain (7-10) Last Admin: 07/26/18 23:59 Dose: 2 tab Albuterol/Ipratropium (Duoneb) 3 ml NEB [id number] [facility] Last Admin: 07/27/18 13:47 Dose: 3 ml Albuterol/Ipratropium (Duoneb) 3 ml NEB [id number] PRN PRN Reason: Wheezing Aspirin (Ecotrin) 81 mg PO DAILY [facility] Last Admin: 07/27/18 09:18 Dose: 81 mg Bisacodyl (Dulcolax) 10 mg [place] DAILYPRN PRN PRN Reason: Constipation Bisacodyl (Dulcolax) 10 mg PO DAILYPRN PRN PRN Reason: Constipation Last Admin: 07/26/18 11:40 Dose: 10 mg Diltiazem HCl (Cardizem Cd) 360 mg PO DAILY [facility] Last Admin: 07/27/18 09:18 Dose: 360 mg Enoxaparin Sodium (Lovenox) 40 mg SC 0900 [facility] Last Admin: 07/27/18 09:19 Dose: 40 mg Famotidine (Pepcid) 20 mg PO BID [facility] Last Admin: 07/27/18 09:18 Dose: 20 mg Fentanyl (Sublimaze) 25 mcg SLOW IVP Q2H PRN PRN Reason: Moderate Pain (4-6) Fentanyl (Sublimaze) 50 mcg SLOW IVP Q2H PRN PRN Reason: Severe Pain (7-10) Last Admin: 07/24/18 10:49 Dose: 50 mcg Fluticasone Propionate (Flonase Nasal [place]) 1 gm NASAL DAILY [facility] Last Admin: 07/27/18 09:20 Dose: Not Given Magnesium Hydroxide (Milk Of Magnesium) 30 ml PO HSPRN PRN PRN Reason: Constipation Mineral Oil (Fleet Mineral Oil) 133 ml [place] Q24H PRN PRN Reason: Constipation Mometasone Furoate/Formoterol Fumar (Dulera 100 Mcg/5 Mcg Inhaler) 2 puff INH BID-RT [facility] Last Admin: 07/27/18 07:48 Dose: 2 puff Ondansetron HCl (Zofran) 4 mg IVP Q6H PRN PRN Reason: Nausea/Vomiting Pantoprazole Sodium (Protonix) 40 mg PO DAILY [facility] Last Admin: 07/27/18 09:19 Dose: 40 mg Polyethylene Glycol (Miralax) 17 gm PO DAILY [facility] Last Admin: 07/27/18 09:20 Dose: Not Given Promethazine HCl (Phenergan) 12.5 mg IM Q4H PRN PRN Reason: Nausea/Vomiting Rosuvastatin Calcium (Crestor) 10 mg PO Q2DAYS [facility] Last Admin: 07/25/18 20:23 Dose: Not Given Senna/Docusate Sodium (Senokot S) 2 tab PO BID [facility] Last Admin: 07/27/18 09:18 Dose: Not Given Simethicone (Mylicon Chewable) 80 mg PO TIDPRN PRN PRN Reason: . Last Admin: 07/22/18 21:58 Dose: 80 mg Sodium Chloride ([place] Nasal [place] 0.65%) 0 ml EA NARE PRN PRN PRN Reason: Nasal Dryness Last Admin: 07/19/18 21:47 Dose: 1 spr Sodium Chloride (Flush - Normal Saline) 10 ml IVF Q12HR [facility] Last Admin: 07/26/18 20:36 Dose: 10 ml
[2018-07-27 14:34] VITALS: BP 121/67; TEMP 97.9
--- NOTE | 2018-07-27 15:35 | PRG ---
DATE OF SERVICE: 07/27/2018 SERVICE: Pulmonary Medicine. INTERVAL HISTORY: The patient is doing really well from respiratory standpoint. His pain is actually quite good. He walked yesterday with Physical Therapy. He did not really have too much difficulties with that. His chest tubes are out yesterday. He has not had any respiratory symptoms. PHYSICAL EXAMINATION: VITAL SIGNS: Afebrile. Pulse 93, blood pressure 130/68, respirations 14, saturation 98% on 4 L nasal cannula. GENERAL: The patient is awake and alert, in no apparent distress. LUNGS: Descent air entry. Some crackles are present. No prolonged expiratory phase or wheezing appreciated. HEART: Normal rate and regular. ABDOMEN: Soft, nontender, and nondistended. Bowel sounds are positive. MUSCULOSKELETAL: No cyanosis or clubbing. No pitting in the bilateral lower extremities. NEUROLOGIC: Grossly nonfocal. LABORATORY DATA: WBC 17.4, hemoglobin 12.1, platelets 255,000. Basic metabolic profile, and magnesium are otherwise unremarkable. IMAGING: Chest x-ray demonstrates interval removal of the left-sided chest tubes. No recurrence of pneumothorax is identified. ASSESSMENT: 1. Maxne-wq-faczqmp hypoxic respiratory failure, resolved at baseline. 2. Secondary spontaneous pneumothorax, status post thoracoscopic stapling leak and talc pleurodesis. 3. Pulmonary fibrosis, secondary to chemotherapy. 4. History of lymphoma. 5. Obstructive sleep apnea, mild. DISCUSSION AND PLAN: We will continue our supportive care moving forward. From my perspective, the patient is stable for transition out of the hospital. The elevated white blood cell count will likely come down through time and it is probably an inflammatory secondary to the pleurodesis. I have counseled him to come back to the hospital with increasing shortness of breath, or fevers. If he remains inhouse, Pulmonary will continue to follow, but hopefully he will be going home today or tomorrow. He is certainly stable for transition to the floor. Job ID: [id number] [facility]
--- NOTE | 2018-07-28 05:54 | DIS ---
DATE OF ADMISSION: 07/17/2018 DATE OF DISCHARGE: 07/27/2018 PRINCIPAL DIAGNOSIS: Spontaneous left pneumothorax. PROCEDURES PERFORMED: 36-Kittitian left tube thoracostomy on 07/17/2018, left thoracoscopic bleb stapling and excisional biopsy of subpleural lymph nodes with combined mechanical and talc pleurodesis on 07/23/2018. HISTORY OF PRESENT ILLNESS AND HOSPITAL COURSE: The patient is a 67-year-old former smoker who developed pulmonary fibrosis to the point of being oxygen dependent following treatment for lymphoma. He had sudden onset of left-sided chest and back pain and shortness of breath, and was found to have left-sided pneumothorax when he presented to the emergency room. A chest tube was placed in the emergency room with improvement of his symptoms as his lung expanded. He had a persistence of air leak and even redeveloped loculated pneumothorax. CT scanning suggested some bullous emphysematous changes along the medial aspect of the lung that combined with the persistence of his air leak and redevelopment of the loculated pneumothorax. It was opted with proceed with thoracoscopy. A bleb was found along the hilar aspect of the lung, which was stapled of. Some subpleural lymph nodes were also identified and were excised. Combined mechanical and talc pleurodesis was performed and because of the severity of his underlying lung disease, he was taken to the intensive care unit postoperatively. His postoperative course was really only remarkable for some gastroparesis that developed early on postoperative day 1, which quickly resolved. His air leak was sealed by postoperative day 1 and by postoperative day 3, his chest tube outpatient was less than 100 mL. His tubes were removed and a chest x-ray the following morning showed good expansion of the lung. He is now being discharged home with a prescription for Vicodin as needed for pain. He is to resume home medications. I will plan on seeing him in the office in around a couple of weeks with another chest x-ray. The pathology on the resected specimen in the bleb and the subpleural lymph nodes showed no evidence of malignancy. Job ID: [id number]
--- NOTE | 2018-07-28 06:38 | DIS ---
DATE OF ADMISSION: 07/17/2018 DATE OF DISCHARGE: 07/27/2018 DISCHARGE DIAGNOSES: Are the followin. Spontaneous pneumothorax. 2. Leukocytosis. 3. Pulmonary fibrosis. 4. Hypertension. 5. History of lymphoma. HOSPITAL COURSE: The patient is a very pleasant 67-year-old male who initially presented to the hospital on 07/17 for chest pain and shortness of breath. The patient was in his usual state of health when he was riding a pickup truck and suddenly started noticing bad pain to the left side of his chest area. When he arrived in the ER, he was found to have a large left pneumothorax. At this time, CV Surgery was notified and the patient had a chest tube insertion. The patient continued to improve. At this time, Pulmonary also was following this patient; however, even with the chest tube, the patient continued to have the air leak and had no significant resolution of his pneumothorax. At this time, the patient was taken into the OR by CV Surgery and the patient on 07/23, underwent a left thoracoscopic stapling of pleural blebs, left thoracoscopic excisional biopsy of the subpleural lymph nodes, and left thoracoscopic combined mechanical and talc pleurodesis. The patient was admitted to the ICU. He continued to improve. He will be discharged home and he will follow up with his primary care doctor. CANCELED DICTATION Job ID: [id number]
== END 2018-07-27 15:15 | disposition home or self-care (01) | DRG 163 ==
LOC: ERS 06:26 → T4-A 10:16 → CCU 07-23 17:35
PROVIDERS: ADMIT Internal Medicine; ATTEND Internal Medicine
PROC: 0W9B30Z Drainage of Left Pleural Cavity with Drainage Device, Percutaneous Approach (ICD-10-PCS; 2018-07-17)
PROC: 0BQG4ZZ Repair Left Upper Lung Lobe, Percutaneous Endoscopic Approach (ICD-10-PCS; principal; 2018-07-23)
PROC: 07B73ZX Excision of Thorax Lymphatic, Percutaneous Approach, Diagnostic (ICD-10-PCS; 2018-07-23)
PROC: 0B5P3ZZ Destruction of Left Pleura, Percutaneous Approach (ICD-10-PCS; 2018-07-23)
PROC: 05H633Z Insertion of Infusion Device into Left Subclavian Vein, Percutaneous Approach (ICD-10-PCS; 2018-07-23)
DX: J93.83 Other pneumothorax (principal); J96.21 Acute and chronic respiratory failure with hypoxia; I50.32 Chronic diastolic (congestive) heart failure; J84.10 Pulmonary fibrosis, unspecified; Z87.891 Personal history of nicotine dependence; D72.829 Elevated white blood cell count, unspecified; Z79.899 Other long term (current) drug therapy; Z79.82 Long term (current) use of aspirin; G47.33 Obstructive sleep apnea (adult) (pediatric); Z85.71 Personal history of Hodgkin lymphoma; M19.90 Unspecified osteoarthritis, unspecified site; I11.0 Hypertensive heart disease with heart failure
CPT/HCPCS: 32551; 36415; 36416; 71045; 71260; 74018; 80048; 83735; 83880; 84484; 85025; 87804; 88305; 90471; 90662; 90670; 93005; 94640; 96374; G0008; G0009; J0131; J0360; J0456; J0670; J0696; J1100; J1642; J1644; J1650; J1885; J1940; J2001; J2150; J2250; J2270; J2405; J2440; J2704; J2720; J2765; J2930; J3010; J3370; J3475; J3480; J7050; J7506; J7620; S0017

== ENCOUNTER 2018-08-31 16:29 | Inpatient (IN) | payer MEDICARE, BC ==
[2018-08-31] MEDS ORDERED: Albuterol Sulfate 2.5 mg/3 ml Neb ONE (16:53)
[2018-08-31] MEDS ORDERED: Albuterol Sulfate 2.5 mg/0.5 ml Neb ONE (16:53)
[2018-08-31 17:03] LABS: Actual Bicarbonate (HCO3a) 24.6 mEq/L (22-28); Analyzer IN Cardio ER; Base Excess (BEa) 0.7 mEq/L (-2.0 to +3.0); CO2 Tension 37.3 mmHg (35.0-45.0); Calcium, Ionized 1.21 mmol/L (1.12-1.30); Carboxyhemoglobin (COHb) 0.8 gm% (0.0-3.0); Hemoglobin (Hb) 14.1 g/dL (14.0-18.0); O2 Tension (PaO2) 69.1 mmHg (> 80.0); Potassium - ABG Lab 3.84 mmol/L (3.70-5.30); pH, Arterial 7.44 (7.35-7.45)
[2018-08-31 17:07] LABS: ALV-art Gradient 140.955 (0-20); Puncture Site RRA
[2018-08-31] MEDS ORDERED: Magnesium 2 GM/50 ML BAG (IN WATER) ONE (17:17)
[2018-08-31 22:28] VITALS: BMI 29.9
[2018-08-31] MEDS ORDERED: Ondansetron ODT 4 MG TAB SL PRN (23:11)
[2018-08-31] MEDS ORDERED: Ondansetron PF 4 MG/2 ML Vial IVP PRN (23:11)
[2018-08-31] MEDS ORDERED: Famotidine 20 MG TAB PO SCH (23:30)
[2018-08-31] MEDS ORDERED: HYDROcodone/Acetaminophen 5/325 mg Tablet PO SCH (23:30)
[2018-09-01] MEDS ORDERED: Albuterol Sulfate 2.5 mg/3 ml Neb NEB PRN (03:09)
[2018-09-01] MEDS: Aspirin 81 mg Enteric Coated Tablet PO SCH (09:22)
[2018-09-01] MEDS: valACYclovir 500 MG TAB PO SCH (09:23)
[2018-09-01] MEDS: Hydrocortisone 1% Cream 30 GM TUBE TOP SCH (09:25)
[2018-09-01] MEDS: Mometasone/Formoterol 120 PUFF INHALER INH SCH ×2 (09:28→19:36)
--- NOTE | 2018-09-01 14:32 | CON ---
DATE OF CONSULTATION: 09/01/2018 CONSULT PHYSICIAN: Hospitalist group. REASON FOR CONSULTATION: Lower respiratory tract infection. The following encompassed 70 minutes of the time, of that time, greater than 50% spent with the patient and/or the patient's unit in the hospital. HISTORY OF PRESENT ILLNESS: Mr. Rene is a 68-year-old male, who is a patient of Dr. Berrios and has idiopathic pulmonary fibrosis. He also has a history of Hodgkin lymphoma, that is in remission. He presented to his primary care doctor yesterday with lower chest congestion that has been present for several days. He denies any fever. He says his cough has been dry. He underwent a CT, which did not show any changes in his baseline pulmonary fibrosis and did not show any evidence of pulmonary embolism. He was sent here for further care. PAST MEDICAL HISTORY: 1. IPF thought secondary to chemotherapy from Hodgkin lymphoma. 2. Hodgkin lymphoma. 3. Osteoarthritis. 4. Chronic respiratory failure. 5. Chronic diastolic heart failure. 6. History of left-sided spontaneous pneumothorax. PAST SURGICAL HISTORY: 1. Left inguinal hernia. 2. Thoracoscopy. SOCIAL HISTORY: Has a greater 50 pack-year history of smoking. No longer smoking. Does not consume alcohol. Does not use illicit drugs. FAMILY MEDICAL HISTORY: Unremarkable. ALLERGIES: NONE. REVIEW OF SYSTEMS: A 12-point review of systems is otherwise negative. CURRENT MEDICATIONS: 1. Breo 1 puff daily. 2. Albuterol as needed. 3. Valacyclovir 500 mg daily. 4. Hydrocodone as needed. 5. Zantac 150 mg nightly. 6. Diltiazem extended release 360 mg daily. 7. Aspirin 81 mg daily. 8. DuoNeb as needed. PHYSICAL EXAMINATION: VITAL SIGNS: Temperature 98.2, pulse 90, respirations 24, O2 saturation 95% on 4 L, and blood pressure 137/71. GENERAL: He is awake and alert, in no distress. HEENT: Pupils react. Sclerae icteric. Oropharynx clear. NECK: No adenopathy or JVD. LUNGS: He has expiratory crackles in the bases, they start posteriorly extending the custodial up both lung noble, anteriorly it is fairly clear. CARDIAC: S1 and S2. Regular without murmur. ABDOMEN: Soft, nontender, and nondistended. EXTREMITIES: No clubbing, cyanosis, or edema. NEUROLOGIC: Grossly intact throughout. LABORATORY DATA: A pH of 7.44, pCO2 of 37, and pO2 of 69, that was on 4 L nasal cannula. White blood cell count 17.8, hematocrit 46.7, and platelet count 263. Sodium 140, potassium 4.1, chloride 103, CO2 of 23, BUN 15, creatinine 1.0, and glucose 78. BNP was 25. I reviewed CT scan in detail. ASSESSMENT: 1. Pulmonary fibrosis. 2. Possible concurrent pneumonia. RECOMMENDATIONS/PLAN: 1. I would continue this patient on antibiotics. I was looking through the chart and I cannot tell that he has been given anything since arrival here, but he did get Levaquin yesterday at the other facility, so I think it is okay to continue that. 2. Add low-dose steroids. 3. Continue oxygen. Of note, he is at his baseline 4 L nasal cannula. Job ID: [id number]
--- NOTE | 2018-09-01 15:26 | HP ---
PRIMARY CARE PHYSICIAN: Dr. Sharla Topete. CHIEF COMPLAINT: Shortness of breath. HISTORY OF PRESENT ILLNESS: Mr. Rene is a very pleasant 68-year-old gentleman, who has a history of pulmonary fibrosis, this developed following treatment for Hodgkin lymphoma. He was just recently hospitalized for a spontaneous pneumothorax and had stapling of some pulmonary blebs. He says that he went home and was feeling relatively okay until this Monday, and Monday, he started feeling congested and was having some cough. He says he was not able to bring up any phlegm that he could see. He does notice some mild chest pain, but he really does not feel this is coming from his chest. He had increasing shortness of breath and says that he was having "shallow breathing." For this reason, he came to the emergency room. A chest x-ray as well as a CT angiogram of the chest were done in the ER, which did not show any significant change and it is possible that he is having a flare up of the pulmonary fibrosis. He denies any fevers. No chills, no nausea, no vomiting. He has a good appetite. When I see him in the room, he says he is feeling much better. His only other complaint is having some epigastric pain, which he says is vague and has been occurring over the last few weeks to months. He says the pain may be slightly better with eating. There has been no melena. No hematemesis. No other significant change in bowels. He says he plans to take this up with his primary care physician once he is discharged. REVIEW OF SYSTEMS: All systems were reviewed and are negative except for that mentioned in the history of present illness. PAST MEDICAL HISTORY: Significant for pulmonary fibrosis, Hodgkin lymphoma, as well as chronic congestive heart failure with preserved ejection fraction. PAST SURGICAL HISTORY: He had a left inguinal hernia repair and stapling of blebs. ALLERGIES: NO KNOWN DRUG ALLERGIES. SOCIAL HISTORY: He is . He is a former smoker. He is a nondrinker. Denies any drugs. His sister, Pricila, is his medical power of sports attorney, and his code status is full code. FAMILY HISTORY: Significant for liver cancer as well as esophageal cancer, and his mother had lung cancer. CURRENT MEDICATIONS: Include: 1. DuoNebs q.6 p.r.n. 2. [place] 5/325 q.4 hours daily. 3. Valtrex 500 mg daily. 4. Ranitidine 150 mg at bedtime. 5. Breo Ellipta inhaled daily. 6. Cardizem CD 360 mg daily. 7. Aspirin 81 mg daily. 8. Albuterol nebs t.i.d. as needed. PHYSICAL EXAMINATION: GENERAL: He is alert and oriented. He appears to be in no acute distress. He is well developed and well nourished. VITAL SIGNS: Blood pressure was 137/71, heart rate 89, respiratory rate of 18, temperature is 98.2, and O2 saturation was 99% on 4 L. HEENT: His pupils are equal, round, and reactive. Extraocular muscles are intact. His sclerae are anicteric. Throat, no erythema, no exudates. NECK: No adenopathy, no bruits. LUNGS: He has rales throughout much of his lung noble, primarily however, at the bases. There was no wheezing. No rhonchi. CARDIOVASCULAR: He had a normal S1 and S2. I did not appreciate an S3 or S4. No murmurs, no clicks, no rubs. ABDOMEN: Soft. It is nontender and nondistended. Positive for bowel sounds. There is no rebound or guarding. EXTREMITIES: He has trace edema. There is no calf tenderness. No joint effusions. NEUROLOGIC: Cranial nerves 2 through 12 are grossly intact. His muscle strength is 5/5 in both his upper and lower extremities. SKIN AND INTEGUMENT: No skin changes. No rash. LABORATORY RESULTS: The white blood cell count is 17.8, hemoglobin 14.2, hematocrit is 46.7, and platelet count was 263. Sodium 140, potassium 4.1, chloride is 103, CO2 is 23, BUN of 15, creatinine 1.04, glucose is 78. ASSESSMENT: 1. This is a 68-year-old gentleman, who presents to the ER with complaints of shortness of breath, cough, and congestion; however, he has no fever and his white count is actually close to his baseline. It is unclear whether or not he has an infectious process or more likely an exacerbation of his current condition. He will be admitted to the Medical Service, and Pulmonary will be consulted to dope house operator helper in his evaluation and recommend therapy. We will continue with his usual home medications and that is for pulmonary fibrosis. 2. Chronic heart failure, preserved ejection fraction. This appears to be compensated. 3. Chronic epigastric pain. We will continue the proton pump inhibitor as well as an H2 celia and this can be deferred workup as an outpatient as he does not have any worrisome symptoms. Job ID: [id number]
[2018-09-01] MEDS: HYDROcodone/Acetaminophen 5/325 mg Tablet PO PRN (20:49)
[2018-09-01] MEDS: Famotidine 20 MG TAB PO SCH (20:50)
[2018-09-01] MEDS ORDERED: Famotidine 20 MG TAB PO SCH (21:00)
[2018-09-02] MEDS: valACYclovir 500 MG TAB PO SCH (08:46)
[2018-09-02] MEDS: Aspirin 81 mg Enteric Coated Tablet PO SCH (08:47)
[2018-09-02] MEDS: Hydrocortisone 1% Cream 30 GM TUBE TOP SCH (08:50)
[2018-09-02] MEDS: Mometasone/Formoterol 120 PUFF INHALER INH SCH ×2 (09:01→22:53)
--- NOTE | 2018-09-02 10:38 | PRG ---
DATE OF SERVICE: 09/02/2018 SUBJECTIVE: He felt better today. He had no acute complaints. OBJECTIVE: VITAL SIGNS: Temperature 97.7, pulse 106, respirations 18, O2 saturation 97% on 4 L, blood pressure 140/79. HEENT: Unremarkable. NECK: No JVD. LUNGS: He has inspiratory crackles. CARDIAC: S1 and S2, regular. ASSESSMENT: 1. Pulmonary fibrosis. 2. Possible recurrent pneumonia versus just exacerbation of pulmonary fibrosis. PLAN: Continue the antibiotics, steroids, and nebs. If he is doing well, he can probably be converted over to oral medication and sent home tomorrow. Job ID: [id number]
[2018-09-02] MEDS: HYDROcodone/Acetaminophen 5/325 mg Tablet PO PRN ×2 (12:56→23:54)
[2018-09-02] MEDS: Famotidine 20 MG TAB PO SCH (20:13)
--- NOTE | 2018-09-03 07:42 | PDOC.PN ---
- Subjective Encounter Start Date: 09/02/18 (Late entry) Encounter Start Time: 09:41 Mr. Rene says he is feeling much better. He has walked some and is less short of breath. - Objective MAR Reviewed: Yes Vital Signs & Weight: Vital Signs (12 hours) Temp Pulse Resp BP Pulse Ox 09/03/18 04:00 97.7 F 72 16 146/69 H 96 09/02/18 23:53 97.5 F L 72 16 127/66 98 09/02/18 22:54 96 09/02/18 22:53 94 L 09/02/18 20:00 97.9 F 77 16 127/61 95 Weight Weight 227 lb 3.2 oz I&O: 09/02/18 09/03/18 09/04/18 06:59 06:59 06:59 Intake Total 1050 1930 Output Total 1100 Balance -50 1930 Phys Exam - Physical Examination HEENT: PERRLA Respiratory: no wheezing, no rhonchi + rales at the bases Cardiovascular: RRR, no significant murmur, no rub Gastrointestinal: soft, non-tender, no distention, positive bowel sounds Musculoskeletal: no edema, pulses present Dx/Plan (1) Acute and chronic respiratory failure with hypoxia Code(s): J96.21 - ACUTE AND CHRONIC RESPIRATORY FAILURE WITH HYPOXIA Status: Acute (2) Pulmonary fibrosis Code(s): J84.10 - PULMONARY FIBROSIS, UNSPECIFIED Status: Chronic - Plan * Patient is clinically improving * Antibiotics have been added by the [employer] * Continue supportive care
--- NOTE | 2018-09-03 07:47 | PDOC.PN ---
- Subjective Encounter Start Date: 09/03/18 Encounter Start Time: 07:45 Mr. Rene was seen today in follow-up. He continues to improve. He has walked some and is less short of breath - Objective MAR Reviewed: Yes Vital Signs & Weight: Vital Signs (12 hours) Temp Pulse Resp BP Pulse Ox 09/03/18 04:00 97.7 F 72 16 146/69 H 96 09/02/18 23:53 97.5 F L 72 16 127/66 98 09/02/18 22:54 96 09/02/18 22:53 94 L 09/02/18 20:00 97.9 F 77 16 127/61 95 Weight Weight 227 lb 3.2 oz I&O: 09/02/18 09/03/18 09/04/18 06:59 06:59 06:59 Intake Total 1050 1930 Output Total 1100 Balance -50 1930 Phys Exam - Physical Examination HEENT: PERRLA Respiratory: no wheezing, no rhonchi + dry rales at the bases Cardiovascular: RRR, no significant murmur, no rub Gastrointestinal: soft, non-tender, no distention, positive bowel sounds Musculoskeletal: no edema, pulses present Dx/Plan (1) Acute and chronic respiratory failure with hypoxia Code(s): J96.21 - ACUTE AND CHRONIC RESPIRATORY FAILURE WITH HYPOXIA Status: Acute (2) Pulmonary fibrosis Code(s): J84.10 - PULMONARY FIBROSIS, UNSPECIFIED Status: Chronic - Plan * Acute on chronic respiratory failure- improving * Continue Levaquin, steroids, and Neb treatments * Hopefully home soon.
[2018-09-03 08:58] VITALS: BP 143/74; TEMP 97.5
[2018-09-03] MEDS: Mometasone/Formoterol 120 PUFF INHALER INH SCH (09:12)
[2018-09-03] MEDS: Aspirin 81 mg Enteric Coated Tablet PO SCH (09:19)
[2018-09-03] MEDS: valACYclovir 500 MG TAB PO SCH (09:20)
[2018-09-03] MEDS: Hydrocortisone 1% Cream 30 GM TUBE TOP SCH (09:20)
--- NOTE | 2018-09-04 04:17 | DIS ---
DATE OF ADMISSION: 08/31/2018 DATE OF DISCHARGE: 09/03/2018 PRIMARY CARE PHYSICIAN: Dr. Topete. DISCHARGE DISPOSITION: Home. PRIMARY DISCHARGE DIAGNOSES: 1. Acute on chronic respiratory failure with hypoxemia. 2. Pulmonary fibrosis. 3. Possible pneumonia. 4. History of lymphoma and history of Hodgkin lymphoma. 5. Chronic diastolic heart failure. DISCHARGE MEDICATIONS: Include; 1. Levaquin 750 mg p.o. daily. 2. Medrol Dosepak. 3. Continue DuoNeb q.6 as needed. 4. [place] 5/325 q.4 hours as needed. 5. Valtrex 500 mg daily. 6. Ranitidine 150 mg daily. 7. Cardizem extended release 360 mg daily. 8. Aspirin 81 mg daily. 9. Albuterol nebs t.i.d. as needed. CODE STATUS: Full code. ALLERGIES: NO KNOWN DRUG ALLERGIES. HOSPITAL COURSE: Mr. Rene is a pleasant 68-year-old gentleman, who has a history of pulmonary fibrosis, which was secondary to chemotherapeutic medications. He was treated for Hodgkin lymphoma. He presented to the emergency room complaining of shortness of breath and cough. He had a CT angiogram done in the emergency room, which showed changes consistent with pulmonary fibrosis. There was no evidence of pulmonary embolism and no evidence of any focal pneumonia. He was admitted and started on antibiotics per the highway inspector given concern for possible underlying infection. He was placed on DuoNebs, IV steroids, and long-acting beta agonist. He actually improved after just 24 hours in the hospital, but we watched him a couple of more days, and he continued to improve and was ultimately able to be discharged home on oral Levaquin as well as Medrol Dosepak and with close outpatient followup. Job ID: [id number]
== END 2018-09-03 18:11 | disposition home or self-care (01) | DRG 196 ==
LOC: ERS 16:29 → ONC 17:20
PROVIDERS: ADMIT Family Medicine; ATTEND Family Medicine
DX: J84.112 Idiopathic pulmonary fibrosis (principal); J96.21 Acute and chronic respiratory failure with hypoxia; J18.9 Pneumonia, unspecified organism; I50.32 Chronic diastolic (congestive) heart failure; R10.13 Epigastric pain; Z79.82 Long term (current) use of aspirin; Z85.71 Personal history of Hodgkin lymphoma; Z87.891 Personal history of nicotine dependence; Z80.0 Family history of malignant neoplasm of digestive organs
CPT/HCPCS: 36415; 82805; 87804; 93005; 94640; 94664; 96365; 96367; J1956; J2920; J7611; J7620

== ENCOUNTER 2018-09-11 14:21 | Outpatient (CLI) | payer MEDICARE, BC ==
--- NOTE | 2018-09-11 15:45 | RAD ---
PA AND LATERAL CHEST: 09/11/18 HISTORY: Emphysema. Shortness of breath. Heart size is within normal limits. There is some interstitial fibrotic lung change seen. There is so me chain type sutures in the left upper lobe. In reviewing a previous 08/31/18 study, I do not believe there is a significant degree of interval change given differences in technique. IMPRESSION: Chronic interstitial fibrotic lung change. Stable. POS: TPC
== END 2018-09-11 14:22 | disposition home or self-care (01) ==
LOC: RAD 14:21
PROVIDERS: ATTEND Thoracic Surgery (Cardiothoracic Vascular Surgery)
DX: J84.10 Pulmonary fibrosis, unspecified (principal)
CPT/HCPCS: 71046

== ENCOUNTER 2018-09-25 11:04 | Outpatient (CLI) | payer MEDICARE, BC ==
--- NOTE | 2018-09-25 13:06 | RAD ---
CHEST 2 VIEWS: Date: 09/25/18 HISTORY: Dyspnea. COMPARISON: 09/11/18. FINDINGS: There is extensive bilateral, left greater than right, linear and interstitial parenchymal changes, a s well as some asymmetric pleural thickening, stable from prior study. Heart size is within normal li mits. Blunting of left costophrenic angle. No significant cardiomegaly. IMPRESSION: Extensive stable linear and interstitial parenchymal changes and pleural changes, particularly in the left chest, unchanged from prior exam. No significant new process. Atherosclerosis of aorta. POS: FANG
== END 2018-09-25 11:05 | disposition home or self-care (01) ==
LOC: RAD 11:04
PROVIDERS: ATTEND Internal Medicine
DX: R06.00 Dyspnea, unspecified (principal); I70.0 Atherosclerosis of aorta
CPT/HCPCS: 71046

== ENCOUNTER 2018-12-25 09:14 | Outpatient (CLI) | payer MEDICARE, BC ==
--- NOTE | 2018-12-27 14:18 | PFT ---
PATIENT HISTORY: HEIGHT: 73 IN WEIGHT: 235 SMOKER: NO HOW LON YRS PACKS PER DAY: 1 PRODUCTIVE COUGH: LUNG DISEASE: PHYSICIAN INTERPRETATION FINAL REPORT: Patient had fair effort and good cooperation. FVC 2.91 (57%), FEV1 2.11(56%), FEV1/FVC 0.72. FRC 2.42 (63%), RV 1.59 (60%), TLC 4.38 (57%) Diffusion 7.84 (24%) The FVC and FEV1 are symmetrically reduced. There is a symmetric reduction to the FEV1/FVC the ratio, suggestive of restrictive air flow limitation which is confirmed by the reduced lung volumes. Diffusion capacity is severely impaired. Compared to 2018, there has been, a significant improvement in the FVC, stable FEV1, and no significant change to the Diffusion Capacity. IMPRESSION: Overall, these pulmonary functions studies are consistent with moderate restrictive lung disease with severe reduction in gas exchange. These findings have been spirometrically stable to improved since 2018. [employer] Bus Driver: GIOVANNY Accordion Repairer: GIOVANNY STANTNO
== END 2018-12-25 09:15 | disposition home or self-care (01) ==
LOC: CP 09:14
PROVIDERS: ATTEND Internal Medicine
DX: J84.10 Pulmonary fibrosis, unspecified (principal); J96.10 Chronic respiratory failure, unspecified whether with hypoxia or hypercapnia
CPT/HCPCS: 94010; 94727; 94729

== ENCOUNTER 2019-08-22 15:19 | Inpatient (IN) | payer MEDICARE, BC ==
[2019-08-22 15:52] LABS: #Basophils 0.1 thou/uL (0.0-0.2); #Eosinphils 0.1 thou/uL (0.0-0.7); #Lymphocytes 4.7 thou/uL (1.20-3.40); #Monocytes 1.7 thou/uL (0.11-0.59); #Neutrophils 13.3 thou/uL (1.40-6.50); %Basophils 0.6 % (0.0-1.0); %Eosinophils 0.5 % (0.0-10.0); %Lymphocytes 23.5 % (21.0-51.0); %Monocytes 8.6 % (0.0-10.0); %Neutrophils 66.9 % (42.0-75.0); Hemoglobin 16.2 g/dL (14.0-18.0); Mean Corpuscular HGB CONC 33.7 g/dL (32.0-36.0); Mean Corpuscular Hemoglobin 29.7 pg (27.0-31.0); Mean Platelet Volume 8.5 fL (7.4-10.4); Platelet Count 213 thou/uL (130-400); RBC Distribution Width 13.1 % (11.5-14.5); Red Blood Cell (RBC) Count 5.47 mill/uL (4.70-6.10); White Blood Cell (WBC) Count 19.8 thou/uL (4.8-10.8)
--- NOTE | 2019-08-22 15:52 | RAD ---
Portable frontal chest radiograph: 08/22/2019 COMPARISON: 08/31/2018 and 09/25/2018 HISTORY: Shortness of breath FINDINGS: Coarse increased linear interstitial densities are noted within the perihilar regions, the peripheral aspect of both mid lung zones, and throughout bilateral lung bases, as seen on prior imaging, evidence of pulmonary fibrosis, consistent with the patient's history. There is a 2-3 cm new ill-defined area of masslike opacity in the mid right lung zone which could signify worsening fibrosis, infectious pneumonitis/aspiration, or underlying pulmonary parenchymal mass lesion. IMPRESSION: Chronic interstitial disease with superimposed new irregular area of focal opacity in the mid right lung zone. Short-term follow-up imaging following treatment is advised to document resolution. This may be related to infection or malignancy. CODE T
[2019-08-22 16:13] LABS: ALT (SGPT) 13 U/L (8-55); AST (SGOT) 16 U/L (5-34); Albumin 4.3 g/dL (3.4-4.8); Alkaline Phosphatase 100 U/L (40-110); Anion Gap 18 mmol/L (10-20); BUN (Urea Nitrogen) 13 mg/dL (8.4-25.7); Bilirubin, Total 0.6 mg/dL (0.2-1.2); Calc. Creatinine Clearance 0 mL/min (70-130); Calcium 9.8 mg/dL (7.8-10.44); Carbon Dioxide 20 mmol/L (23-31); Chloride 103 mmol/L (98-107); Estimated GFR-MDRD 71; Globulin 3.5 g/dL (2.4-3.5); Glucose 80 mg/dL (80-115); Potassium 4.3 mmol/L (3.5-5.1); Protein, Total 7.8 g/dL (5.8-8.1); Sodium 137 mmol/L (136-145)
[2019-08-22 17:41] LABS: Actual Bicarbonate (HCO3a) 20.1 mEq/L (22-28); Analyzer IN Cardio ER; Calcium, Ionized 1.17 mmol/L (1.12-1.30); Carboxyhemoglobin (COHb) 0.9 gm% (0.0-3.0); Hemoglobin (Hb) 15.3 g/dL (14.0-18.0); O2 Tension (PaO2) 63.2 mmHg (> 80.0); Potassium - ABG Lab 3.98 mmol/L (3.70-5.30); pH, Arterial 7.47 (7.35-7.45)
[2019-08-22 17:45] LABS: Puncture Site RRA
[2019-08-22] MEDS ORDERED: Acetaminophen 325 MG TAB ONE (18:05)
[2019-08-22] MEDS ORDERED: Cefepime 2 GM VIAL ONE (19:38)
--- NOTE | 2019-08-22 19:54 | PDOC.EVN ---
Event Note - Event Note Event Note: Admitting patient to IMCU for pneumonia on top of idiopathic pulm fibrosis, BIPAP prn. Dictated #[id number]
[2019-08-22] MEDS ORDERED: HYDROcodone/Acetaminophen 5/325 mg Tablet PO PRN ×2 (20:15)
[2019-08-22] MEDS ORDERED: Guaifenesin DM 100-10/5 ML UDCUP PO PRN (20:15)
[2019-08-22] MEDS ORDERED: Ondansetron PF 4 MG/2 ML Vial IVP PRN (20:15)
[2019-08-22] MEDS ORDERED: Ondansetron ODT 4 MG TAB PO PRN (20:15)
[2019-08-22] MEDS ORDERED: Acetaminophen 650 MG Suppository PR PRN (20:15)
[2019-08-22] MEDS ORDERED: Senokot S 8.6-50 MG TAB PO PRN (20:15)
[2019-08-22] MEDS ORDERED: Acetaminophen 325 MG TAB PO PRN (20:15)
[2019-08-22] MEDS ORDERED: Bacteriostatic Water 30 ML VIAL FS PRN (22:00)
[2019-08-22 22:01] VITALS: BMI 29.2
[2019-08-22] MEDS ORDERED: Lorazepam 2 MG/ML VIAL SLOW IVP SCH (23:15)
[2019-08-22] MEDS: methylPREDNISolone Sod Succ 40 MG VIAL IVP SCH (23:26)
[2019-08-23] MEDS: Vancomycin 1.5 GRAM/300 ML BAG 1.5 GM in Premix Bag 1 BAG IVPB SCH ×2 (02:10→15:42)
[2019-08-23 03:41] LABS: #Lymphocytes 1.1 thou/uL (1.20-3.40); #Monocytes 0.4 thou/uL (0.11-0.59); %Basophils 0.3 % (0.0-1.0); %Eosinophils 0.2 % (0.0-10.0); %Lymphocytes 7.7 % (21.0-51.0); %Monocytes 2.7 % (0.0-10.0); %Neutrophils 89.1 % (42.0-75.0); Hemoglobin 14.9 g/dL (14.0-18.0); Mean Corpuscular HGB CONC 32.7 g/dL (32.0-36.0); Mean Corpuscular Hemoglobin 28.8 pg (27.0-31.0); Mean Corpuscular Volume 88.2 fL (78.0-98.0); Mean Platelet Volume 8.3 fL (7.4-10.4); Platelet Count 196 thou/uL (130-400); RBC Distribution Width 13.4 % (11.5-14.5); Red Blood Cell (RBC) Count 5.18 mill/uL (4.70-6.10); White Blood Cell (WBC) Count 14.6 thou/uL (4.8-10.8)
[2019-08-23 04:03] LABS: Anion Gap 12 mmol/L (10-20); BUN (Urea Nitrogen) 16 mg/dL (8.4-25.7); Calc. Creatinine Clearance 88 mL/min (70-130); Calcium 9.3 mg/dL (7.8-10.44); Carbon Dioxide 24 mmol/L (23-31); Chloride 105 mmol/L (98-107); Estimated GFR-MDRD 63; Glucose 128 mg/dL (80-115); Potassium 4.1 mmol/L (3.5-5.1); Sodium 137 mmol/L (136-145)
[2019-08-23] MEDS: methylPREDNISolone Sod Succ 40 MG VIAL IVP SCH ×3 (06:28→19:15)
[2019-08-23] MEDS: Furosemide 40 MG TAB PO SCH (06:30)
[2019-08-23] MEDS: Cefepime 2 GM in Sodium Chloride 0.9% 100 ML IVPB SCH ×2 (09:38→20:22)
[2019-08-23] MEDS: Enoxaparin Sodium 40 MG/0.4 ML SYRINGE SC SCH (09:39)
[2019-08-23] MEDS: valACYclovir 500 MG TAB PO SCH (09:40)
--- NOTE | 2019-08-23 10:50 | PDOC.HOSPP ---
- Subjective Encounter Date: 08/23/19 Encounter Time: 11:30 Subjective: Patient feeling significantly better. Asking for regular diet, understands risks to health. - Objective Vital Signs & Weight: Vital Signs (12 hours) Temp Pulse Resp Pulse Ox 08/23/19 08:00 98 08/23/19 07:18 97 08/23/19 07:16 97.8 F 08/23/19 07:15 80 20 97 08/23/19 00:00 99.3 F 08/22/19 23:25 92 24 H 96 Weight Weight 221 lb 3 oz Most Recent Monitor Data Heart Rate from ECG 92 NIBP 119/72 NIBP BP-Mean 87 Respiration from ECG 31 SpO2 99 I&O: 08/22/19 08/23/19 08/24/19 06:59 06:59 06:59 Intake Total 730 Output Total 575 Balance 155 Result Diagrams: 08/23/19 03:26 08/23/19 03:26 Hospitalist ROS - Review of Systems Constitutional: denies: fever, chills Respiratory: reports: cough, shortness of breath Cardiovascular: denies: chest pain, palpitations, orthopnea Gastrointestinal: denies: nausea, vomiting, abdominal pain, diarrhea, constipation - Medication Medications: Active Medications Generic Name Dose Route Start Last Admin Trade Name Freq PRN Reason Stop Dose Admin Hydrocodone Bitart/Acetaminophen 1 tab 08/22/19 20:15 08/22/19 23:24 [place] 5/325 PO 1 tab Q4H PRN Administration Moderate Pain (4-6) Albuterol/Ipratropium 3 ml 08/23/19 01:00 08/23/19 07:15 Duoneb NEB 3 ml [id number] KATIE Administration Diltiazem HCl 360 mg 08/23/19 09:00 08/23/19 09:39 Cardizem Cd PO 360 mg DAILY KATIE Administration Enoxaparin Sodium 40 mg 08/23/19 09:00 08/23/19 09:39 Lovenox SC 40 mg 0900 KATIE Administration Furosemide 40 mg 08/23/19 07:30 08/23/19 06:30 Lasix PO 40 mg DAILY-AC KATIE Administration Cefepime HCl 2 gm/ Sodium 100 mls @ 200 mls/hr 08/23/19 09:00 08/23/19 09:38 Chloride IVPB 100 mls Q12HR KATIE Administration Vancomycin HCl 1.5 gm/ Device 300 mls @ 200 mls/hr 08/23/19 02:00 08/23/19 02 :10 IVPB 300 mls 0200,1400 KATIE Administration Methylprednisolone Sodium Succinate 40 mg 08/22/19 23:59 08/23/19 06:28 Solu-Medrol IVP 40 mg Q6HR KATIE Administration Pantoprazole Sodium 40 mg 08/23/19 09:00 08/23/19 09:40 Protonix PO 40 mg DAILY KATIE Administration Sodium Chloride 10 ml 08/22/19 21:00 08/23/19 09:40 Flush - Normal Saline IVF 10 ml Q12HR KATIE Administration Valacyclovir HCl 500 mg 08/23/19 09:00 08/23/19 09:40 Valtrex PO 500 mg DAILY KATIE Administration - Exam General Appearance: NAD Eye: anicteric sclera ENT: moist mucosa Heart: RRR, no murmur, no gallops, no rubs Respiratory - other findings: decent air movement throughout, minimal wheezing, mild increased WOB Gastrointestinal: soft, non-tender, non-distended, normal bowel sounds Psychiatric: normal affect, normal behavior, A&O x 3 Hosp A/P (1) Acute and chronic respiratory failure with hypoxia Code(s): J96.21 - ACUTE AND CHRONIC RESPIRATORY FAILURE WITH HYPOXIA Status: Acute Plan: on 4L NC, BIPAP as needed (2) Pneumonia Code(s): J18.9 - PNEUMONIA, UNSPECIFIED ORGANISM Status: Acute (3) Pulmonary fibrosis Code(s): J84.10 - PULMONARY FIBROSIS, UNSPECIFIED Status: Chronic Plan: Due to bleomycin and antibiotic damage (4) Hypertension Code(s): I10 - ESSENTIAL (PRIMARY) HYPERTENSION Status: Chronic (5) Leukocytosis Code(s): D72.829 - ELEVATED WHITE BLOOD CELL COUNT, UNSPECIFIED Status: Chronic Plan: back to baseline (6) Chronic diastolic heart failure Code(s): I50.32 - CHRONIC DIASTOLIC (CONGESTIVE) HEART FAILURE Status: Chronic - Plan continue antibiotics, PT/OT, DVT proph w/lovenox Pulmonary consultation- Appreciate Dr. Arndt's assistance Cefepime, Levaquin, and Vancomycin Duo nebs O2 and BiPap as needed Close monitoring in the IMCU- likely stable enough for the floor soon
--- NOTE | 2019-08-23 11:14 | HP ---
PRIMARY CARE PHYSICIAN: Dr. Hampton. CHIEF COMPLAINT: Shortness of breath and weakness. HISTORY OF PRESENT ILLNESS: This is a 69-year-old white male with a known history of idiopathic pulmonary fibrosis from a reaction between antibiotic and a chemotherapy agent he used years ago for Hodgkins lymphoma. He has had multiple admissions over the last couple of years for this pulmonary fibrosis. He has had a pneumothorax that he had to have surgery for. The patient was in his baseline functional status until about 2 days ago. A day before [place], he started having increasing work of breathing, felt very short of breath all the time especially when he would try to talk or move around, had a little bit of cough and little low-grade fevers. This got severely worse this morning, so he was brought into the emergency room. In the ER, he was found to be requiring increased dose of oxygen. He was tachycardic with a severely increased respiratory rate. His temperature did climb to 100.9. The patient had a chest x-ray that showed new right middle lobe infiltrate, also had leukocytosis though it tends to run high ever since his cancer, is currently 19,000, usually runs around between 14 and 17. The patient was given DuoNeb along with cefepime, Levaquin, and vancomycin in the emergency room. He is feeling a little bit better. They do have the BiPAP machine outside in the garg area if he starts tiring out they will put him on that. REVIEW OF SYSTEMS: CONSTITUTIONAL: Fevers as per HPI. No chills. EYES: No double vision or blurred vision. ENT: He has had some nasal congestion. No sore throat. CARDIOVASCULAR: He has had some central chest pain, worse with cough and deep breathing as well as some right-sided anterior and posterior chest wall pain from struggling to breathe. No palpitations. PULMONARY: See HPI. He has had minimal sputum, minimal cough. GASTROINTESTINAL: No abdominal pain. No nausea or vomiting. No diarrhea or constipation. GENITOURINARY: No dysuria or hematuria. MUSCULOSKELETAL: He has had some low back pains, which are chronic and the chest wall muscular pain. SKIN: No rashes or lesions noted. NEUROLOGIC: No numbness, tingling, or focal weakness. Just some generalized weakness. PAST MEDICAL HISTORY: 1. 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 2. Hodgkin lymphoma, in remission for 2 years. 3. Chronic diastolic congestive heart failure. 4. Hypertension. 5. Arthritis. 6. Gastroesophageal reflux disease. PAST SURGICAL HISTORY: 1. Left-sided inguinal hernia repair. 2. Multiple lung surgeries. 3. Drainage of gangrenous infection on perineum while he was given chemotherapy. PSYCHIATRIC HISTORY: None. SOCIAL HISTORY: The patient is a former tobacco user, smoked cigarettes and quit smoking within the past year. He is . Code status is full. His sister is his medical power of employment law attorney. Her name is Pricila Fernando. ALLERGIES: NO KNOWN DRUG ALLERGIES. FAMILY HISTORY: Significant for liver cancer as well as esophageal cancer and lung cancer. CURRENT MEDICATIONS: 1. Albuterol as needed. 2. DuoNeb as needed. 3. Valacyclovir 500 mg daily. 4. Lasix 40 mg daily. 5. Diltiazem extended release 360 mg daily. 6. Protonix 40 mg daily. PHYSICAL EXAMINATION: VITAL SIGNS: Blood pressure 113/61, pulse 103, respirations fluctuating between the high 20s when he is at rest not moving, not talking and jumped up to almost 40 after I started asking him questions, he became much more labored breathing. VITAL SIGNS: Temperature 100.9, O2 saturation 97% on 4 L. GENERAL: This is a well-developed, thin, white male, fluctuating between [id number] respiratory distress depending on how much he talks or moves. HEENT: Pupils are equal, round, and reactive to light. Oropharynx is clear without lesions, erythema, or exudate. NECK: Supple. No lymphadenopathy. No thyroid nodules or enlargement. HEART: Regular rhythm. Mildly tachycardic. No murmurs, rubs, or gallops. LUNGS: Some bilateral dry interstitial and crackling sounds. No focal rhonchi noted. He is having some moderately increased work of breathing after I started talking to him. ABDOMEN: Soft, nontender to palpation. Normoactive bowel sounds. No hepatosplenomegaly or other masses. EXTREMITIES: No clubbing, cyanosis, or edema. SKIN: No rashes or other lesions noted. NEUROLOGIC: Intact strength and sensation in all extremities. No facial droop. PSYCHIATRIC: Alert and oriented x3. Normal mood and affect. LABORATORY DATA: CBC with a white blood cell count of 19,000. The rest was normal. ABG shows pH of 7.47, pCO2 of 28, and pO2 of 63. Complete metabolic panel is notable for carbon dioxide of 20, the rest is completely normal. Lactic acid was negative. Troponin was negative. IMAGING STUDIES: Chest x-ray, I did review the chest x-ray done in the emergency room along with the radiologist's report. He does have some chronic interstitial disease with a new irregular focus of opacity in the right mid lung infection versus malignancy. ASSESSMENT: 1. Pneumonia. Continue cefepime, Levaquin, and vancomycin. Whatever pharmacy does the vancomycin. 2. Kgqes-hm-ostdjiy hypoxic respiratory failure. We will continue DuoNeb. We will give steroids IV every 6 hours. We will consult Pulmonology. Dr. Jason is the patient's cash register mechanic, I believe Dr. Fitzpatrick is sr risk management consultant. We will put the patient in the IMCU. We will give him BiPAP as needed if he has increased work of breathing to prevent respiratory failure. The patient is okay with being intubated should that become necessary. 3. Hypertension. Resume the patient's home medications. 4. Gastroesophageal reflux disease. Resume the patient's home Protonix. 5. Deep venous thrombosis prophylaxis. Put the patient on Lovenox and SCDs while in bed. 6. Code status: I did discuss this with the patient, he is a full code. Should he be incapacitated, his sister, Pricila Fernando, is his medical power of employment law attorney. Job ID: [id number]
--- NOTE | 2019-08-23 14:05 | CON ---
DATE OF CONSULTATION: 08/23/2019 CONSULTING PHYSICIAN: Hospitalist . REASON FOR CONSULTATION: Pneumonia. The following encompassed 70 minutes of time, of that time, greater than 50% was spent in direct the patient care. HISTORY OF PRESENT ILLNESS: This is a 69-year-old male with idiopathic pulmonary fibrosis, who is seen in our clinic by Dr. Jason. He presents with a 2-day history of increasing shortness of breath, cough, and fever up to 100. He was diagnosed with a right middle lobe pneumonia. He was started on antibiotics and now feels better. PAST MEDICAL HISTORY: 1. IPF secondary to bleomycin reaction. 2. Hodgkin's lymphoma. 3. Chronic diastolic heart dysfunction. 4. Hypertension. 5. Arthritis. 6. Gastroesophageal reflux. PAST SURGICAL HISTORY: 1. Left-sided inguinal hernia repair. 2. Lung surgeries. 3. Drainage of an infected perineum. SOCIAL HISTORY: Formerly smoked, but quit about a year ago. Does not consume alcohol. He is . ALLERGIES: NONE. MEDICATIONS: Prior to admission; 1. Albuterol. 2. DuoNeb. 3. Acyclovir. 4. Lasix. 5. Diltiazem. 6. Protonix. REVIEW OF SYSTEMS: Twelve-point review of systems is otherwise negative, except for dyspnea on exertion. PHYSICAL EXAMINATION: VITAL SIGNS: Temperature 97.8, pulse 94, blood pressure 126/60, and O2 saturation 100%. GENERAL: He is awake, alert, in no distress. HEENT: Unremarkable. NECK: No adenopathy or JVD. LUNGS: He has crackles in the right mid region, best heard posteriorly. Left side has some faint crackles. CARDIOVASCULAR: S1 and S2. Regular. ABDOMEN: Soft and nontender. EXTREMITIES: No clubbing, cyanosis, or edema. LABORATORY DATA: White blood cell count has dropped to 14.6 from 19.8 at admission, hematocrit is 45.7, and platelet count 196. Sodium 137, potassium 4.1, chloride 105, CO2 of 24, BUN 16, creatinine 1.2, and glucose 128. IMAGING DATA: Chest x-ray was reviewed. Findings are as noted above. ASSESSMENT: 1. Right middle lobe pneumonia. 2. Idiopathic pulmonary fibrosis with baseline forced vital capacity of 57% predicted and diffusion capacity 24% predicted. PLAN: I agree with current treatment of antibiotics, nebulization treatments, and steroids. He is stable enough to transfer to the medical floor. Job ID: [id number]
[2019-08-23] MEDS ORDERED: Calcium Carbonate 500 MG ChewTAB PO PRN (19:39)
[2019-08-23] MEDS ORDERED: Lidocaine 2% Viscous Solution 10 ML, Aluminum & Magnesium Hydroxide 30 ML SSW SCH (19:45)
[2019-08-23] MEDS ORDERED: FLU VACC TS2019-20(65YR UP)/PF 180 MCG/0.5 ML SYRINGE IM ONE (21:00)
[2019-08-24] MEDS: methylPREDNISolone Sod Succ 40 MG VIAL IVP SCH ×4 (00:27→17:26)
[2019-08-24 01:31] LABS: Vancomycin, Trough 20.3 ug/mL
[2019-08-24] MEDS: Vancomycin HCl 1.25 GM in Sodium Chloride 0.9% 250 ML 250 ML IVPB SCH ×2 (02:21→13:56)
[2019-08-24] MEDS: Furosemide 40 MG TAB PO SCH (06:21)
[2019-08-24] MEDS: Cefepime 2 GM in Sodium Chloride 0.9% 100 ML IVPB SCH ×2 (09:35→20:15)
[2019-08-24] MEDS: valACYclovir 500 MG TAB PO SCH (09:36)
[2019-08-24] MEDS: Enoxaparin Sodium 40 MG/0.4 ML SYRINGE SC SCH (09:36)
--- NOTE | 2019-08-24 11:33 | PRG ---
DATE OF SERVICE: SUBJECTIVE: Mr. Rene is doing better today. He is coughing up less. He is having some issues with acid reflux. OBJECTIVE: VITAL SIGNS: His temperature is 97.8, pulse 86, and O2 saturation 98% on 4 L. HEENT: Unremarkable. NECK: No adenopathy or JVD. LUNGS: He has diffuse soft crackles bilaterally. CARDIAC: S1 and S2. Regular. ABDOMEN: Soft. EXTREMITIES: No edema. ASSESSMENT: 1. Pneumonia. 2. Idiopathic pulmonary fibrosis with severely compromised pulmonary status. PLAN: He is going up to the floor. If his cultures come back negative, his vancomycin can be stopped. He is currently receiving Protonix for acid reflux. Job ID: [id number]
--- NOTE | 2019-08-24 15:06 | PDOC.HOSPP ---
- Subjective Encounter Date: 08/24/19 Encounter Time: 15:04 Subjective: Mr. Rene was seen today in follow-up of Pneumonia in the setting of IPF. He notes some improvement. He has ambulated some. - Objective Vital Signs & Weight: Vital Signs (12 hours) Temp Pulse Resp BP Pulse Ox 08/24/19 13:17 88 24 H 94 L 08/24/19 11:22 97.5 F L 90 22 H 128/74 93 L 08/24/19 10:23 97.8 F 08/24/19 08:00 98 08/24/19 07:47 98 08/24/19 07:44 86 28 H 99 08/24/19 07:21 97.7 F 08/24/19 03:46 89 22 H Weight Weight 221 lb 3 oz Most Recent Monitor Data Heart Rate from ECG 93 NIBP 120/67 NIBP BP-Mean 84 Respiration from ECG 24 SpO2 100 I&O: 08/23/19 08/24/19 08/25/19 06:59 06:59 06:59 Intake Total 730 2770 Output Total 575 750 Balance 155 2020 Result Diagrams: 08/23/19 03:26 08/23/19 03:26 Hospitalist ROS - Medication Medications: Active Medications Generic Name Dose Route Start Last Admin Trade Name Freq PRN Reason Stop Dose Admin Hydrocodone Bitart/Acetaminophen 1 tab 08/22/19 20:15 08/22/19 23:24 [place] 5/325 PO 1 tab Q4H PRN Administration Moderate Pain (4-6) Albuterol/Ipratropium 3 ml 08/23/19 01:00 08/24/19 13:17 Duoneb NEB 3 ml [id number] KATIE Administration Calcium Carbonate 1,000 mg 08/23/19 19:39 08/23/19 20:21 Tums PO 1,000 mg DAILYPRN PRN Administration Heartburn or Indigestion Diltiazem HCl 360 mg 08/23/19 09:00 08/24/19 09:36 Cardizem Cd PO 360 mg DAILY KATIE Administration Enoxaparin Sodium 40 mg 08/23/19 09:00 08/24/19 09:36 Lovenox SC 40 mg 0900 KATIE Administration Furosemide 40 mg 08/23/19 07:30 08/24/19 06:21 Lasix PO 40 mg DAILY-AC KATIE Administration Cefepime HCl 2 gm/ Sodium 100 mls @ 200 mls/hr 08/23/19 09:00 08/24/19 09:35 Chloride IVPB 100 mls Q12HR KATIE Administration Levofloxacin 750 mg/ Device 150 mls @ 100 mls/hr 08/23/19 18:00 08/23/19 19: 15 IVPB 150 mls Q24HR@1800 KATIE Administration Vancomycin HCl 1.25 gm/ Sodium 250 mls @ 166.667 mls/hr 08/24/19 02:00 13:56 Chloride IVPB 250 mls 0200,1400 KATIE Administration Methylprednisolone Sodium Succinate 40 mg 08/22/19 23:59 08/24/19 12:51 Solu-Medrol IVP 40 mg Q6HR KATIE Administration Pantoprazole Sodium 40 mg 08/23/19 09:00 08/24/19 09:36 Protonix PO 40 mg DAILY KATIE Administration Sodium Chloride 10 ml 08/22/19 21:00 08/24/19 09:36 Flush - Normal Saline IVF 10 ml Q12HR KATIE Administration Valacyclovir HCl 500 mg 08/23/19 09:00 08/24/19 09:36 Valtrex PO 500 mg DAILY KATIE Administration - Exam Eye: PERRL Heart: RRR, no murmur, no gallops, no rubs, normal peripheral pulses Respiratory: rales (+ rales at both bases, and some mild expiratory wheeze.), wheezes Gastrointestinal: soft, non-tender, non-distended, normal bowel sounds, no palpable masses, no hepatomegaly Extremities: no cyanosis, no clubbing, no edema Hosp A/P (1) Pneumonia, community acquired Code(s): J18.9 - PNEUMONIA, UNSPECIFIED ORGANISM Status: Acute (2) Acute and chronic respiratory failure with hypoxia Code(s): J96.21 - ACUTE AND CHRONIC RESPIRATORY FAILURE WITH HYPOXIA Status: Acute (3) Chronic diastolic heart failure Code(s): I50.32 - CHRONIC DIASTOLIC (CONGESTIVE) HEART FAILURE Status: Chronic (4) Pulmonary fibrosis Code(s): J84.10 - PULMONARY FIBROSIS, UNSPECIFIED Status: Chronic - Plan * Acute on chronic respiratory failure due to Pneumonia * Continue Cefepime, Vancomycin nd Levaquin * Continue Duonebs * Chronic diastolic heart failure- compensated
[2019-08-25] MEDS: methylPREDNISolone Sod Succ 40 MG VIAL IVP SCH ×3 (00:04→11:30)
[2019-08-25] MEDS: Vancomycin HCl 1.25 GM in Sodium Chloride 0.9% 250 ML 250 ML IVPB SCH (02:48)
[2019-08-25] MEDS: Furosemide 40 MG TAB PO SCH (08:04)
[2019-08-25] MEDS: Cefepime 2 GM in Sodium Chloride 0.9% 100 ML IVPB SCH (08:05)
[2019-08-25] MEDS: valACYclovir 500 MG TAB PO SCH (08:05)
[2019-08-25] MEDS: Enoxaparin Sodium 40 MG/0.4 ML SYRINGE SC SCH (08:05)
--- NOTE | 2019-08-25 13:08 | PRG ---
DATE OF SERVICE: 08/25/2019 SUBJECTIVE: Mr. Rene feels better than he did yesterday, but thinks he needs to be in the hospital for another couple of days. OBJECTIVE: VITAL SIGNS: Temperature 97.5, pulse 91, respirations 20, O2 saturation 94% on 4 L. HEENT: Clear. NECK: No adenopathy or JVD. LUNGS: Diffuse crackles posteriorly. CARDIAC: S1 and S2. Regular. ABDOMEN: Soft. EXTREMITIES: No edema. ASSESSMENT: 1. Pneumonia. 2. Idiopathic pulmonary fibrosis. PLAN: I will go ahead and stop the vancomycin since 48-hour cultures have been sterile. We will switch him over to oral antibiotics and hope that we can discharge by tomorrow. Job ID: [id number]
[2019-08-25 13:18] LABS: Vancomycin, Trough 18.7 ug/mL
--- NOTE | 2019-08-25 15:50 | PDOC.HOSPP ---
- Subjective Encounter Date: 08/25/19 Encounter Time: 15:49 Subjective: Mr. Rene was seen today in follow-up of respiratory failure. He says he was a bit tired, but has not been able to sleep well. He also noted excessive thirst earlier today, but it has improved. - Objective Vital Signs & Weight: Vital Signs (12 hours) Temp Pulse Resp BP Pulse Ox 08/25/19 13:20 78 20 98 08/25/19 08:00 97.5 F L 91 20 139/77 94 L 08/25/19 07:08 85 20 92 L 08/25/19 04:22 97.4 F L 74 18 108/64 93 L Weight Weight 221 lb 3 oz Most Recent Monitor Data Heart Rate from ECG 93 NIBP 120/67 NIBP BP-Mean 84 Respiration from ECG 24 SpO2 100 I&O: 08/24/19 08/25/19 08/26/19 06:59 06:59 06:59 Intake Total 2770 1380 480 Output Total 750 Balance 2020 1380 480 Result Diagrams: 08/23/19 03:26 08/23/19 03:26 Hospitalist ROS - Medication Medications: Active Medications Generic Name Dose Route Start Last Admin Trade Name Freq PRN Reason Stop Dose Admin Hydrocodone Bitart/Acetaminophen 1 tab 08/22/19 20:15 08/22/19 23:24 [place] 5/325 PO 1 tab Q4H PRN Administration Moderate Pain (4-6) Albuterol/Ipratropium 3 ml 08/23/19 01:00 08/25/19 13:20 Duoneb NEB 3 ml [id number] KATIE Administration Calcium Carbonate 1,000 mg 08/23/19 19:39 08/23/19 20:21 Tums PO 1,000 mg DAILYPRN PRN Administration Heartburn or Indigestion Diltiazem HCl 360 mg 08/23/19 09:00 08/25/19 08:04 Cardizem Cd PO 360 mg DAILY KATIE Administration Enoxaparin Sodium 40 mg 08/23/19 09:00 08/25/19 08:05 Lovenox SC 40 mg 0900 KATIE Administration Furosemide 40 mg 08/23/19 07:30 08/25/19 08:04 Lasix PO 40 mg DAILY-AC KATIE Administration Pantoprazole Sodium 40 mg 08/23/19 09:00 08/25/19 08:04 Protonix PO 40 mg DAILY KATIE Administration Sodium Chloride 10 ml 08/22/19 21:00 08/25/19 08:05 Flush - Normal Saline IVF 10 ml Q12HR KATIE Administration Valacyclovir HCl 500 mg 08/23/19 09:00 08/25/19 08:05 Valtrex PO 500 mg DAILY KATIE Administration - Exam Eye: PERRL Heart: RRR, no murmur, no gallops, no rubs, normal peripheral pulses Respiratory: rales (+ fine crackles at both bases) Gastrointestinal: soft, non-tender, non-distended, normal bowel sounds, no palpable masses, no hepatomegaly Extremities: no cyanosis, 1+ LE edema Hosp A/P (1) Pneumonia, community acquired Code(s): J18.9 - PNEUMONIA, UNSPECIFIED ORGANISM Status: Acute (2) Acute and chronic respiratory failure with hypoxia Code(s): J96.21 - ACUTE AND CHRONIC RESPIRATORY FAILURE WITH HYPOXIA Status: Acute (3) Chronic diastolic heart failure Code(s): I50.32 - CHRONIC DIASTOLIC (CONGESTIVE) HEART FAILURE Status: Chronic (4) Pulmonary fibrosis Code(s): J84.10 - PULMONARY FIBROSIS, UNSPECIFIED Status: Chronic - Plan * Acute on chronic respiratory failure due to Pneumonia * His antibiotics have been changed to Omnicef, and steroids have been changed to oral * Continue Duonebs * Chronic diastolic heart failure- compensated * Hopefully home tomorrow
[2019-08-25] MEDS ORDERED: ALPRAZolam 0.25 MG TAB PO PRN (16:00)
[2019-08-25] MEDS ORDERED: Cefdinir 300 MG CAP PO SCH (18:00)
[2019-08-25] MEDS: predniSONE 20 MG TAB PO SCH (20:00)
[2019-08-26] MEDS: Enoxaparin Sodium 40 MG/0.4 ML SYRINGE SC SCH (08:19)
[2019-08-26] MEDS: Furosemide 40 MG TAB PO SCH (08:19)
[2019-08-26] MEDS: predniSONE 20 MG TAB PO SCH (08:19)
[2019-08-26] MEDS: valACYclovir 500 MG TAB PO SCH (08:20)
--- NOTE | 2019-08-26 13:34 | PRG ---
DATE OF SERVICE: 08/26/2019 SERVICE: Pulmonary Medicine. INTERVAL HISTORY: The patient is doing fine from respiratory standpoint. Breathing comfortably. He indicates he feels like he is back to baseline. He shifted yesterday, and when he did, he felt that everything in his chest started breaking loose. There has been no interval change to his condition. PHYSICAL EXAMINATION: VITAL SIGNS: Afebrile, pulse 83, blood pressure 126/71, respirations 20, and saturation 96% on 4 L nasal cannula. GENERAL: The patient is awake and alert, in no apparent distress. LUNGS: Decent air entry. There is no prolonged expiratory phase. Dependent crackles are present. HEART: Normal rate. Regular. ABDOMEN: Soft nontender, nondistended. Bowel sounds are positive. MUSCULOSKELETAL: No cyanosis or clubbing. There is no pitting in the bilateral lower extremities. NEUROLOGIC: Grossly nonfocal. ASSESSMENT: 1. [place]-gq-ecxsvql hypoxic respiratory failure. 2. Pulmonary fibrosis, with acute exacerbation, resolved. 3. Community-acquired pneumonia. ASSESSMENT: The patient is stable for transition out of the hospital at this point. I will repeat a chest x-ray prior to his already scheduled appointment to see me in 2 months. If he has any increasing respiratory difficulties, he will return to clinic sooner. Job ID: [id number]
--- NOTE | 2019-08-26 13:44 | PDOC.HOSPP ---
- Subjective Encounter Date: 08/26/19 Encounter Time: 13:39 Subjective: Mr. Rene was seen today in follow-up of Acute respiratory failure. He says he feels better, and has no complaints. - Objective Vital Signs & Weight: Vital Signs (12 hours) Temp Pulse Resp BP Pulse Ox 08/26/19 12:36 76 16 96 08/26/19 08:26 97.6 F 83 20 126/71 96 08/26/19 08:00 96 08/26/19 07:23 74 16 96 Weight Weight 221 lb 3 oz Most Recent Monitor Data Heart Rate from ECG 93 NIBP 120/67 NIBP BP-Mean 84 Respiration from ECG 24 SpO2 100 I&O: 08/25/19 08/26/19 08/27/19 06:59 06:59 06:59 Intake Total 1380 1999 240 Balance 1380 1999 240 Result Diagrams: 08/23/19 03:26 08/23/19 03:26 Hospitalist ROS - Medication Medications: Active Medications Generic Name Dose Route Start Last Admin Trade Name Freq PRN Reason Stop Dose Admin Hydrocodone Bitart/Acetaminophen 1 tab 08/22/19 20:15 08/22/19 23:24 [place] 5/325 PO 1 tab Q4H PRN Administration Moderate Pain (4-6) Albuterol/Ipratropium 3 ml 08/23/19 01:00 08/26/19 12:36 Duoneb NEB 3 ml [id number] KATIE Administration Calcium Carbonate 1,000 mg 08/23/19 19:39 08/23/19 20:21 Tums PO 1,000 mg DAILYPRN PRN Administration Heartburn or Indigestion Cefdinir 600 mg 08/25/19 18:00 08/25/19 17:51 Omnicef PO 600 mg 1800 KATIE Administration Diltiazem HCl 360 mg 08/23/19 09:00 08/26/19 08:19 Cardizem Cd PO 360 mg DAILY KATIE Administration Enoxaparin Sodium 40 mg 08/23/19 09:00 08/26/19 08:19 Lovenox SC 40 mg 0900 KATIE Administration Furosemide 40 mg 08/23/19 07:30 08/26/19 08:19 Lasix PO 40 mg DAILY-AC KATIE Administration Levofloxacin 750 mg 08/25/19 18:00 08/25/19 17:51 Levaquin PO 750 mg 1800 KATIE Administration Pantoprazole Sodium 40 mg 08/23/19 09:00 08/26/19 08:19 Protonix PO 40 mg DAILY KATIE Administration Sodium Chloride 10 ml 08/22/19 21:00 08/26/19 08:20 Flush - Normal Saline IVF 10 ml Q12HR KATIE Administration Valacyclovir HCl 500 mg 08/23/19 09:00 08/26/19 08:20 Valtrex PO 500 mg DAILY KATIE Administration - Exam Eye: PERRL Heart: RRR, no murmur, no gallops, no rubs, normal peripheral pulses Respiratory: rales (+ fine crackles at the bases) Gastrointestinal: soft, non-tender, non-distended, normal bowel sounds, no palpable masses, no hepatomegaly Hosp A/P (1) Pneumonia, community acquired Code(s): J18.9 - PNEUMONIA, UNSPECIFIED ORGANISM Status: Acute (2) Acute and chronic respiratory failure with hypoxia Code(s): J96.21 - ACUTE AND CHRONIC RESPIRATORY FAILURE WITH HYPOXIA Status: Acute (3) Chronic diastolic heart failure Code(s): I50.32 - CHRONIC DIASTOLIC (CONGESTIVE) HEART FAILURE Status: Chronic (4) Pulmonary fibrosis Code(s): J84.10 - PULMONARY FIBROSIS, UNSPECIFIED Status: Chronic - Plan * Acute on chronic respiratory failure due to Pneumonia * he is much improved * Stable for discharge home
[2019-08-26 14:07] VITALS: BP 123/75; TEMP 97.4
--- NOTE | 2019-08-26 15:57 | PQF ---
MARLA WOODY TONI MD [id number] CLINICAL DOCUMENTATION IMPROVEMENT CLARIFICATION FORM: ICD-10 Updated PLEASE DO AN ADDENDUM TO THE PROGRESS NOTE WITH ANY DOCUMENTATION UPDATES OR ADDITIONS AND CARRY THROUGH TO DC SUMMARY. THANK YOU. DATE: 08/26/19 ATTN: Dr. Carey Please exercise your independent, professional judgment in responding to the clarification form. Clinical indicators are provided on the bottom of this form for your review Please check appropriate box(es): [ X ] Sepsis due to: Pneumonia [ ] Severe sepsis with acute organ dysfunction of: (Examples: respiratory failure, encephalopathy, acute kidney failure, other) [ ] Localized infection without sepsis [ ] Other diagnosis [ ] Unable to determine In addition, please specify: Present on Admission (POA): [ X ] Yes [ ] No [ ] Unable to determine For continuity of documentation, please document condition throughout progress notes and discharge summary. Thank You. CLINICAL INDICATORS - SIGNS / SYMPTOMS / LABS / RESULTS AND LOCATION IN MR Fever or hypothermia (<96.8 F/36 C or > 100.4 F/38C)--> Temp 100.9 08/22 ED VS Respiratory rate >20/min, Hypoxemia--> 08/22 ED VS: RR 38 95% 4L NC ; 08/22 ABG pO2 63 per lab WBC 19.8 08/22 labs HR 103 per ED VS 08/22 08/22 [place]: Sepsis activation 08/22 CXR: focal opacity in the mid right lung zone "RR 20s--almost 40 after asking him questions, much more labored breathing" ; Acute on chronic respiratory failure with hypoxia "per 1227 Naman RISK FACTORS / RESULTS AND LOCATION IN MR Infection/Bacteremia--> "Pnemonia" per 08/22 Naman TREATMENTS / RESULTS AND LOCATION IN MR Initiation Sepsis Protocol in ED 08/22 per orders IMCU 08/22 orders Daily CBC 08/22 per orders Blood cultures 08/22 orders IV antibiotics - broad spectrum--> 08/22-08/25 Cefepime 2gm, 08/22 Vancomycin 1 gm once; 08/24-08/24 Vanc 1.5 gm, 08/23-08/25 Levaquin 750 mg IV per orders (This form is maintained as a part of the permanent medical record) 2014 [employer]. All Rights Reserved Liz Draper RN, BSN, CCDS [email or web address] MTDD
--- NOTE | 2019-08-27 01:58 | DIS ---
DATE OF ADMISSION: 08/22/2019 DATE OF DISCHARGE: 08/26/2019 PRIMARY CARE PHYSICIAN: Juan Hampton MD DISCHARGE DISPOSITION: Home. DISCHARGE DIAGNOSES: 1. Acute on chronic respiratory failure with hypoxemia. 2. Community acquired pneumonia. 3. Hypertension. 4. Pulmonary fibrosis secondary to bleomycin. 5. Hodgkin lymphoma. 6. Arthritis. 7. Gastroesophageal reflux disease. CODE STATUS: Full code. ALLERGIES: NO KNOWN DRUG ALLERGIES. DISCHARGE MEDICATIONS: 1. Prednisone 40 mg daily for two days. 2. Levaquin 750 mg p.o. daily. 3. Omnicef 600 mg daily both for seven days. 4. DuoNeb q.6 as needed. 5. Furosemide 40 mg daily. 6. Pantoprazole 40 mg twice a day. 7. Diltiazem extended release 360 mg daily. HOSPITAL COURSE: Mr. Rene is a pleasant 69-year-old gentleman, who was admitted to the hospital with severe shortness of breath, worsening hypoxemia, cough and congestion. He was evaluated and found to have some new area of focal opacity in the mid right lung zone, which was thought to be due to an infiltrate. He was started on broad-spectrum IV antibiotics and improved over the course of the next couple of days. His manager online was consulted and he was able to be tapered off the IV antibiotics or transition off the IV antibiotics. He returned back to his baseline level of oxygen and as such is able to be discharged home in stable condition and to have close followup with his primary care physician. Job ID: [id number]
[2019-08-27] MEDS ORDERED: predniSONE 20 MG TAB PO SCH (08:00)
== END 2019-08-26 14:45 | disposition home or self-care (01) | DRG 871 ==
LOC: ERS 15:19 → ERHOLD 17:55 → IMCU/EMU 20:11 → T4-A 08-24 11:24
PROVIDERS: ADMIT Emergency Medicine; ATTEND Emergency Medicine
DX: A41.9 Sepsis, unspecified organism (principal); J18.9 Pneumonia, unspecified organism; J96.21 Acute and chronic respiratory failure with hypoxia; C85.90 Non-Hodgkin lymphoma, unspecified, unspecified site; I50.32 Chronic diastolic (congestive) heart failure; M19.91 Primary osteoarthritis, unspecified site; K21.9 Gastro-esophageal reflux disease without esophagitis; I11.0 Hypertensive heart disease with heart failure; J84.112 Idiopathic pulmonary fibrosis; Z87.891 Personal history of nicotine dependence; Z79.899 Other long term (current) drug therapy
CPT/HCPCS: 36415; 71045; 80048; 80053; 80202; 82805; 83605; 84484; 85025; 87040; 87804; 90471; 90662; 93005; 94640; 94660; 94760; 96365; 96366; 96368; 96375; G0008; J0692; J1650; J1956; J2060; J2920; J3370; J3490; J7050; J7512; J7620

== ENCOUNTER 2019-11-27 08:58 | Inpatient (IN) | payer MEDICARE, BC, OTHER ==
[2019-11-27] MEDS ORDERED: Magnesium 2 GM/50 ML BAG (IN WATER) ONE (09:21)
[2019-11-27] MEDS ORDERED: methylPREDNISolone Sod Succ/PF 125 MG/2 ML VIAL ONE (09:21)
[2019-11-27] MEDS ORDERED: Albuterol 200 PUFF (6.7GM INHALER) ONE (09:29)
[2019-11-27] MEDS ORDERED: Albuterol Sulfate 2.5 mg/3 ml Neb ONE (09:29)
[2019-11-27 10:01] LABS: #Basophils 0.1 thou/uL (0.0-0.2); #Lymphocytes 2.6 thou/uL (1.20-3.40); #Monocytes 1.2 thou/uL (0.11-0.59); #Neutrophils 5.9 thou/uL (1.40-6.50); %Basophils 0.7 % (0.0-1.0); %Eosinophils 0.4 % (0.0-10.0); %Lymphocytes 26.8 % (21.0-51.0); %Monocytes 12.4 % (0.0-10.0); %Neutrophils 59.7 % (42.0-75.0); Hemoglobin 16.6 g/dL (14.0-18.0); Mean Corpuscular HGB CONC 31.9 g/dL (32.0-36.0); Mean Corpuscular Hemoglobin 28.9 pg (27.0-31.0); Mean Corpuscular Volume 90.8 fL (78.0-98.0); Mean Platelet Volume 9.6 fL (7.4-10.4); Platelet Count 161 thou/uL (130-400); RBC Distribution Width 12.9 % (11.5-14.5); Red Blood Cell (RBC) Count 5.74 mill/uL (4.70-6.10); White Blood Cell (WBC) Count 9.8 thou/uL (4.8-10.8)
--- NOTE | 2019-11-27 10:01 | RAD ---
CHEST 1 VIEW: HISTORY: Shortness of breath. COMPARISON: Radiograph 08/22/2019. FINDINGS: The lungs exhibit extensive peripheral interstitial prominence. The previously noted right upper lob e opacities are partially resolved. Increased confluence of the lingular and left upper lobe airspac e opacity. Background pulmonary fibrosis. No pneumothorax. IMPRESSION: 1. High-grade pulmonary fibrosis. 2. Concern for superimposed lingular pneumonia. POS: C
[2019-11-27 10:19] LABS: ALT (SGPT) 11 U/L (8-55); AST (SGOT) 20 U/L (5-34); Albumin 4.5 g/dL (3.4-4.8); Alkaline Phosphatase 79 U/L (40-110); Anion Gap 13 mmol/L (10-20); BUN (Urea Nitrogen) 14 mg/dL (8.4-25.7); Bilirubin, Total 0.4 mg/dL (0.2-1.2); CK (CPK) 117 U/L (30-200); Calc. Creatinine Clearance 0 mL/min (70-130); Calcium 9.7 mg/dL (7.8-10.44); Carbon Dioxide 30 mmol/L (23-31); Chloride 100 mmol/L (98-107); Estimated GFR-MDRD 64; Globulin 3.6 g/dL (2.4-3.5); Glucose 81 mg/dL (80-115); Potassium 4.4 mmol/L (3.5-5.1); Protein, Total 8.1 g/dL (5.8-8.1); Sodium 139 mmol/L (136-145)
[2019-11-27] MEDS ORDERED: Vancomycin 1 GM/200 ML BAG ONE (10:51)
[2019-11-27] MEDS ORDERED: Cefepime 2 GM VIAL ONE (10:51)
[2019-11-27] MEDS ORDERED: Acetaminophen 500 MG TAB ONE (12:12)
[2019-11-27 14:43] VITALS: BMI 28.0
--- NOTE | 2019-11-27 16:04 | PDOC.HHP ---
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 The patient states his cough had progressively gotten worst and he couldn't sleep last night because of his cough. His cough was productive. He denied significant chest pain. No fevers, chills, myalgias, runny nose or sore throat. He reports 2 pillow orthopnea which is chronic. No new leg swelling. No recent travel history or sick contacts. He has a history of lymphoma in his lung and is currently in remission from that. 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 He states he was never on therapy for pulmonary fibrosis and was monitored with periodic lung function tests. ED Course: The patient presented with a respiratory rate of 40, oxygen saturation of 100% on 4L. Chest x ray showed high grade pulmonary fibrosis with possible lingular pneumonia. The patient received IV steroids, magnesium, vancomycin, cefepime and levaquin. Hospitalist ROS - Review of Systems Constitutional: denies: fever, chills ENT: denies: ear pain, ear discharge, mouth pain Hospitalist History - Past Medical History Source: patient Cardiac: reports: HTN Other Medical History: Hodgkin Lymphoma in remission - Past Surgical History Other Surgical History: Hernia repair - Family History Other Family History: Father and mother both had cancer Brother also had cancer - Social History Smoking Status: Former smoker (Smoked for at least 30 years) Alcohol: reports: None Drugs: reports: none - Exam General Appearance: NAD, awake alert Eye: PERRL, anicteric sclera ENT: normocephalic atraumatic, no oropharyngeal lesions Neck: supple, symmetric, no JVD Heart: RRR, no murmur, no gallops Respiratory: CTAB, no wheezes, no ronchi Respiratory - other findings: bilateral crackles Gastrointestinal: soft, non-tender, non-distended, normal bowel sounds Extremities: no cyanosis, no clubbing, no edema Skin: normal turgor, no lesions, no rashes Neurological: cranial nerve grossly intact, normal sensation to touch, no focal deficits, no new deficit Musculoskeletal: normal tone, normal strength, no muscle wasting Psychiatric: normal affect, normal behavior, A&O x 3 Hospitalist Results - Labs Result Diagrams: 11/27/19 09:54 11/27/19 09:54 Lab results: WBC 9.8 thou/uL (4.8-10.8) 11/27/19 09:54 Hgb 16.6 g/dL (14.0-18.0) 11/27/19 09:54 Hct 52.1 % (42.0-52.0) H 11/27/19 09:54 MCV 90.8 fL (78.0-98.0) 11/27/19 09:54 Plt Count 161 thou/uL (130-400) 11/27/19 09:54 Neutrophils % 59.7 % (42.0-75.0) 11/27/19 09:54 Sodium 139 mmol/L (136-145) 11/27/19 09:54 Potassium 4.4 mmol/L (3.5-5.1) 11/27/19 09:54 Chloride 100 mmol/L (98-107) 11/27/19 09:54 Carbon Dioxide 30 mmol/L (23-31) 11/27/19 09:54 BUN 14 mg/dL (8.4-25.7) 11/27/19 09:54 Creatinine 1.14 mg/dL (0.7-1.3) 11/27/19 09:54 Glucose 81 mg/dL (80-115) 11/27/19 09:54 Lactic Acid 1.5 mmol/L (0.5-2.2) 11/27/19 10:00 Calcium 9.7 mg/dL (7.8-10.44) 11/27/19 09:54 Total Bilirubin 0.4 mg/dL (0.2-1.2) 11/27/19 09:54 AST 20 U/L (5-34) 11/27/19 09:54 ALT 11 U/L (8-55) 11/27/19 09:54 Alkaline Phosphatase 79 U/L (40-110) 11/27/19 09:54 Creatine Kinase 117 U/L (30-200) 11/27/19 09:54 Troponin I 0.011 ng/mL (< 0.028) 11/27/19 09:54 B-Natriuretic Peptide 42.4 pg/mL (0-100) 11/27/19 09:54 Serum Total Protein 8.1 g/dL (5.8-8.1) 11/27/19 09:54 Albumin 4.5 g/dL (3.4-4.8) 11/27/19 09:54 - EKG Interpretation EKG: nonspecific T wave changes Hospitalist H&P A/P - Plan Plan: Chest X ray: high grade pulmonary fibrosis. Concern for superimposed lingular pneumonia. This is a 69 year old male with past medical history of pulmonary fibrosis coming in with shortness of breath, cough, wheezing Acute hypoxic respiratory failure secondary to Pneumonia vs pulmonary fibrosis - patient with significant tachypnea with RR in the 40's on 4L. Chest X ray showing lingular pneumonia - s/p vanc, cefepime, levaquin in the ER - influenza sent and negative. COVID testing sent, blood cultures pending - pulmonary consult for pulmonary fibrosis - continue IV steroids History of Hodgkin Lymphoma - in remission GERD - resume home meds HTN - hold home med for now DVT prophylaxis: Code status: full code
[2019-11-27] MEDS ORDERED: PROVENTIL INHALER 6.7 G (200 INHALATIONS) INH PRN (16:20)
[2019-11-27] MEDS ORDERED: Albuterol 200 PUFF (6.7GM INHALER) INH PRN (16:23)
[2019-11-27] MEDS: methylPREDNISolone Sod Succ 40 MG VIAL IVP SCH (17:06)
[2019-11-27] MEDS ORDERED: Cefepime 2 GM in Sodium Chloride 0.9% 100 ML IVPB SCH (18:00)
[2019-11-27] MEDS: Cefepime 1 GM in Sodium Chloride 0.9% 100 ML IVPB SCH (22:01)
[2019-11-27] MEDS ORDERED: Vancomycin 1 GM in Premix Bag 1 BAG IVPB SCH (23:00)
[2019-11-28] MEDS: methylPREDNISolone Sod Succ 40 MG VIAL IVP SCH ×4 (00:39→17:50)
[2019-11-28] MEDS ORDERED: Vancomycin 1 GM in Premix Bag 1 BAG IVPB SCH (01:00)
[2019-11-28 03:19] VITALS: BP 112/62
[2019-11-28] MEDS: valACYclovir 500 MG TAB PO SCH (07:53)
[2019-11-28] MEDS: Simethicone Chewable 80 MG TAB PO SCH (07:53)
[2019-11-28] MEDS: Enoxaparin Sodium 40 MG/0.4 ML SYRINGE SC SCH (07:53)
[2019-11-28] MEDS ORDERED: CIMETIDINE HCL 300 MG/5 ML PO SCH (09:00)
[2019-11-28] MEDS: Cefepime 1 GM in Sodium Chloride 0.9% 100 ML IVPB SCH ×2 (10:36→20:30)
[2019-11-28] MEDS ORDERED: VANCOMYCIN IVPB PRN (10:52)
[2019-11-28] MEDS ORDERED: Vancomycin HCl 500 MG in Sodium Chloride 0.9% 100 ML IVPB SCH (11:00)
--- NOTE | 2019-11-28 17:39 | CON ---
DATE OF CONSULTATION: 11/28/2019 CONSULTING PHYSICIAN: Dr. Roberson. REASON FOR CONSULTATION: Hypoxic respiratory failure. HISTORY OF PRESENT ILLNESS: The patient is a 69-year-old male, who apparently has pulmonary fibrosis from bleomycin exposure in the past. He comes to this facility for cough, productive of sputum, increasing shortness of breath and a fever up to 99.7. He feels better compared to yesterday. Unfortunately, he has been put on COVID-19 isolation, so we are waiting for that test result to come back. PAST MEDICAL HISTORY: 1. Pulmonary fibrosis secondary to bleomycin reaction. 2. Hodgkin lymphoma. 3. Chronic diastolic heart dysfunction. 4. Hypertension. 5. Arthritis. 6. Gastroesophageal reflux. PAST SURGICAL HISTORY: 1. Left-sided inguinal hernia repair. 2. Multiple lung surgeries. 3. Drainage of an infected perineum. SOCIAL HISTORY: Quit smoking over a year ago. Does not consume alcohol. He is . ALLERGIES: NONE. MEDICATIONS: Prior to admission, reviewed. See home medication section under the summary section on the chart. Of note, he is not on any type of antifibrotic therapy, but he is on DuoNeb. He is also on oxygen at 4.5 L nasal cannula at home. Inpatient medications include; 1. Cefepime. 2. Diltiazem. 3. Enoxaparin. 4. Levothyroxine. 5. Methylprednisolone. 6. Simethicone. 7. Valacyclovir. 8. Vancomycin. REVIEW OF SYSTEMS: Otherwise, negative. PHYSICAL EXAMINATION: VITAL SIGNS: Temperature 98, pulse 67, blood pressure 124/62, O2 saturation 100% on 4.5 L. GENERAL: He is awake, alert, and in no distress. HEENT: Unremarkable. NECK: No adenopathy or JVD. LUNGS: He has harsh inspiratory crackles, both bases. CARDIOVASCULAR: S1 and S2, regular. ABDOMEN: Soft and nontender. EXTREMITIES: No clubbing, cyanosis, or edema. IMAGING STUDIES: X-ray shows chronic interstitial changes bilaterally. LABORATORY DATA: Sodium 139, potassium 4.4, BUN 14, creatinine 1.1, glucose 81. White blood cell count 9.8, hematocrit 52, platelet count 161. ASSESSMENT: The patient is presenting with increasing dyspnea, which could be an exacerbation of his pulmonary fibrosis, pneumonitis, etc. I have a very low suspicion this being COVID-19. PLAN: Continue antibiotics, breathing treatments, and steroids. Would assume isolation can be discontinued tomorrow if the test comes back negative. Job ID: [id number]
--- NOTE | 2019-11-28 18:19 | PDOC.HOSPP ---
- Subjective Encounter Date: 11/28/19 Encounter Time: 16:00 Subjective: Patient is doing better. Less cough, less tachypnea . Pt states he was told that he may not have pulm fibrosis and it may have just been alveolar scarring from prior pneumonias - Objective Vital Signs & Weight: Vital Signs (12 hours) Temp Pulse Ox 11/28/19 12:00 98.0 F 11/28/19 08:00 98.7 F 97 Weight Weight 213 lb Most Recent Monitor Data Heart Rate from ECG 67 NIBP 124/62 NIBP BP-Mean 82 Respiration from ECG 22 SpO2 100 I&O: 11/27/19 11/28/19 11/29/19 06:59 06:59 06:59 Intake Total 600 Output Total 510 Balance 90 Result Diagrams: 11/27/19 09:54 11/27/19 09:54 Hospitalist ROS - Review of Systems Constitutional: denies: fever, chills - Medication Medications: Active Medications Generic Name Dose Route Start Last Admin Trade Name Freq PRN Reason Stop Dose Admin Diltiazem HCl 360 mg 11/28/19 09:00 11/28/19 07:53 Cardizem Cd PO 360 mg DAILY KATIE Administration Enoxaparin Sodium 40 mg 11/28/19 09:00 11/28/19 07:53 Lovenox SC 40 mg 0900 KATIE Administration Methylprednisolone Sodium Succinate 40 mg 11/27/19 18:00 11/28/19 17:50 Solu-Medrol IVP 40 mg Q6HR KATIE Administration Simethicone 120 mg 11/28/19 09:00 11/28/19 07:53 Mylicon Chewable PO 120 mg DAILY KATIE Administration Valacyclovir HCl 500 mg 11/28/19 09:00 11/28/19 07:53 Valtrex PO 500 mg DAILY KATIE Administration - Exam General Appearance: NAD, awake alert General - other findings: on 3L of oxygen Eye: PERRL, anicteric sclera ENT: normocephalic atraumatic, no oropharyngeal lesions Neck: no JVD Heart - other findings: normal sinus rhythm Respiratory: rales (mild crackles ( per pulm )) Gastrointestinal: non-distended Extremities: no cyanosis, no clubbing, no edema Skin: normal turgor, no lesions, no rashes Neurological: cranial nerve grossly intact, normal sensation to touch, no focal deficits, no new deficit Hosp A/P - Plan This is a 69 year old male with past medical history of pulmonary fibrosis coming in with shortness of breath, cough, wheezing Acute hypoxic respiratory failure secondary to Pneumonia vs pulmonary fibrosis Parainfluenza 3 - patient with significant tachypnea with RR in the 40's on 4L. Chest X ray showing lingular pneumonia - s/p vanc, cefepime, levaquin in the ER . Continue for now - continue IV steroids - viral panel positive for parainfluenza 3. COVID test pending, blood cultures pending - pulmonary consulted for pulm fibrosis, - influenza sent and negative. COVID testing sent, blood cultures pending - pulmonary consult for pulmonary fibrosis - continue IV steroids History of Hodgkin Lymphoma - in remission GERD - resume home meds HTN - hold home med for now Code status: full code
[2019-11-28] MEDS: Vancomycin 1.5 GRAM/300 ML BAG 1.5 GM in Premix Bag 1 BAG IVPB SCH (21:24)
[2019-11-29] MEDS: methylPREDNISolone Sod Succ 40 MG VIAL IVP SCH ×4 (00:17→16:45)
[2019-11-29 03:25] LABS: Hemoglobin 15.8 g/dL (14.0-18.0); Mean Corpuscular HGB CONC 31.6 g/dL (32.0-36.0); Mean Corpuscular Hemoglobin 29.1 pg (27.0-31.0); Mean Platelet Volume 9.1 fL (7.4-10.4); Platelet Count 174 thou/uL (130-400); RBC Distribution Width 12.9 % (11.5-14.5); Red Blood Cell (RBC) Count 5.45 mill/uL (4.70-6.10); White Blood Cell (WBC) Count 12.9 thou/uL (4.8-10.8)
[2019-11-29 03:49] LABS: Anion Gap 13 mmol/L (10-20); BUN (Urea Nitrogen) 20 mg/dL (8.4-25.7); Calc. Creatinine Clearance 118 mL/min (70-130); Carbon Dioxide 22 mmol/L (23-31); Chloride 109 mmol/L (98-107); Estimated GFR-MDRD Greater than 90; Glucose 134 mg/dL (80-115); Potassium 4.6 mmol/L (3.5-5.1); Sodium 139 mmol/L (136-145)
[2019-11-29 08:07] VITALS: TEMP 97.7
--- NOTE | 2019-11-29 08:35 | PRG ---
DATE OF SERVICE: 11/29/2019 SUBJECTIVE: Mr. Rene feels much better today and feels up to going home. We are still awaiting the results of his COVID-19 rule out test. OBJECTIVE: VITAL SIGNS: Temperature 97.7, pulse 77, blood pressure 131/58, and O2 saturation 100% on 4.5 L that he is on at baseline. HEENT: Unremarkable. NECK: No adenopathy or JVD. LUNGS: He has crackles in both bases. CARDIAC: S1 and S2 regular. ABDOMEN: Soft. EXTREMITIES: No edema. LABORATORY DATA: Sodium 139, potassium , chloride 109, CO2 of 22, BUN 20, creatinine 0.8, and glucose 134. White blood cell count 12.9, hematocrit 50, and platelet count 174. ASSESSMENT: Interstitial lung disease. Possible underlying pneumonia versus exacerbation of pulmonary fibrosis. PLAN: So far, cultures are all negative except for viral panel showing parainfluenza type 3. I think if his COVID test comes back negative, he can safely go home. I would treat him for maybe seven days of Levaquin. I think the other antibiotics can be stopped. I would taper steroids slowly over a couple of weeks. Job ID: [id number]
[2019-11-29] MEDS: Enoxaparin Sodium 40 MG/0.4 ML SYRINGE SC SCH (08:45)
[2019-11-29] MEDS: Simethicone Chewable 80 MG TAB PO SCH (08:46)
[2019-11-29] MEDS: valACYclovir 500 MG TAB PO SCH (08:46)
[2019-11-29] MEDS: Cefepime 1 GM in Sodium Chloride 0.9% 100 ML IVPB SCH (08:50)
[2019-11-29] MEDS: Vancomycin 1.5 GRAM/300 ML BAG 1.5 GM in Premix Bag 1 BAG IVPB SCH (08:52)
--- NOTE | 2019-11-29 16:48 | DIS ---
DATE OF ADMISSION: 11/27/2019 DATE OF DISCHARGE: 11/29/2019 CONSULTATIONS: Pulmonary with Durga Arndt. PROCEDURES: None. DISCHARGE DIAGNOSES: 1. Acute hypoxic respiratory failure secondary to pneumonia versus pulmonary fibrosis exacerbation versus possible coronavirus disease. 2. Parainfluenza. 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 The patient reported his cough had significantly gotten worse. He had no fevers, chills, myalgias, runny nose, or sore throat. He did report 2-pillow orthopnea. The patient reports he had not begun on any treatment for pulmonary fibrosis in the past. When he presented to the emergency room, his respiratory rate was 40 with O2 saturation of 100% on 4 L. His chest x-ray showed high-grade pulmonary fibrosis with possible lingular pneumonia. He was given empiric vancomycin, cefepime, Levaquin, and IV steroids and admitted for further workup. HOSPITAL COURSE: Acute hypoxic respiratory failure secondary to pneumonia versus pulmonary fibrosis exacerbation: He is started on IV vancomycin, cefepime, and Levaquin. He had a respiratory viral panel, which was sent, which was positive for parainfluenza-3. He was started on IV steroids for possible pulmonary fibrosis exacerbation. Pulmonary was consulted and was following. The patient eventually did well and was at his baseline oxygen requirement of 4 L. He reported improvement in his shortness of breath and mild productive cough. The patient will be discharged with cefdinir and levaquin for 5 more days to complete a 7-day course of antibiotics. He will be discharged with prednisone for 40 mg x4 days, then 30 mg x4 days, then 20 mg x4 days, and 10 mg x4 days. 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 He also had testing sent for COVID 19. Test results are still pending but given that he is on his baseline oxygen requirement, he was advised that he can be discharged and self-isolate at home from his until test results come back. DISCHARGE PHYSICAL EXAMINATION: VITAL SIGNS: Temperature 97.7, heart rate 71, respiratory rate 26, blood pressure 112/62, O2 saturation 3.5 L nasal cannula, saturating 100%. GENERAL: The patient is alert, awake, and oriented x3. CVS: Regular rate and rhythm with no murmurs, rubs, or gallops. LUNGS: Bilateral crackles at the bases. ABDOMEN: Positive bowel sounds, soft, nontender, nondistended. EXTREMITIES: No edema. PERTINENT LABORATORY DATA: CBC 11/28: Shows white count of 12.9, hemoglobin 15.8, hematocrit 50.0. BMP 11/28: Unremarkable. LFTs 11/26: Unremarkable. BNP: 42.4. Troponin I: 0.011. PERTINENT IMAGING STUDIES: Chest x-ray 11/26: Shows high-grade pulmonary fibrosis, superimposed lingular pneumonia. DISCHARGE CONDITION: Stable for discharge home. ACTIVITY: As tolerated. DIET: Heart healthy diet. DISCHARGE MEDICATIONS: New prescriptions: 1. Cefdinir 300 mg p.o. q.12 hours. 2. Levaquin 750 mg p.o. daily. 3. Prednisone 40 mg x4 days, 30 mg x4 days, 20 mg x4 days, and 10 mg x4 days. DISCHARGE INSTRUCTIONS: The patient is to follow up with his PCP in a week. Get a repeat chest x-ray in 6 weeks and follow up with his bookstore manager or Dr. Arndt in 2 weeks. He should self-isolate from his until his COVID results come back. Job ID: [id number] MTDD
--- NOTE | 2019-12-02 05:34 | PQF ---
MARLA WOODY, ARLENE [id number] CLINICAL DOCUMENTATION CLARIFICATION FORM: POST DISCHARGE Addendum to original discharge summary date: ____ Late entry note date: __ DATE:12/02/2019 ATTN: Arlene Haley Please exercise your independent, professional judgment in responding to the clarification form. Clinical indicators are provided on the bottom of this form for your review Please check appropriate box(s): [ ] Aspiration Pneumonia [ ] Empirically treating Gram Negative Pneumonia [ ] Empirically treating Anaerobic Pneumonia [ ] Pneumonia secondary to (specify organism / underlying disease) [ X ] Simple Pneumonia (community acquired - nosocomial) [ ] Pneumonia of unknown etiology [ ] Other diagnosis [ ] Unable to determine For continuity of documentation, please document condition throughout progress notes and discharge summary. Thank You. CLINICAL INDICATORS - SIGNS / SYMPTOMS / LABS Laboratory 11/26 9.8; 12.9, Plt count 161, Neutrophils 59.7, Lactic Acid 1.5 Vital signs 4 BP 123/66, pulse 100, Resp 42, Temp 98.3 Chest Xray 4 Impression : high grade pulmonary fibrosis with possible Lingular Pneumonia Chest Xray 4 Noted RUL opacities are partially resolved. Increased confluence of the lingular and left upper lobe airspace opacity H&P p1 4/ Dr Jacobs presented to ER with cough for the past five days H&P p4 4/1 Dr Jacobs Acute hypoxic respiratory failure secondary to Pneumonia vs Pulmonary fibrosis PN p4 4/2 Dr. Jacobs Viral panel positive for parainfluenza 3 RISK FACTORS H&P p1 4/1 69 year-old male H&P p1 4/1 pulmonary Fibrosis secondary to Bleomycin H&P p1 4/1 Hx of Hodgkin Lymphoma, in remission H&P p1 4/1 HTN H&P p2 11/26 Former Smoker H&P p4 11/26 GERD TREATMENTS: Respiratory panel 11/26 Oxygen 4L via nasal cannula OCT 29 IV Vancomycin 1gm Oct 29 IV Cefepime OCT 29 IV Levofloxacin 750ng OCT 29 IV Sole-Medrol 125mg MAR 11/26 Ventolin 2.5mg neb OCT 29 Valtrex 500mg oral Nasopharyngeal Swab 11/26 Pulmonology consult 11/27 Dr Hair Calixto Isolation ordered 11/26 Chest Xray 11/26 (This form is maintained as a part of the permanent medical record) 2014 [employer]. All Rights Reserved [email or web address]
--- NOTE | 2019-12-02 05:35 | PQF ---
MARLA WOODY, ARLENE [id number] CLINICAL DOCUMENTATION CLARIFICATION FORM: POST DISCHARGE Addendum to original discharge summary date: ____ Late entry note date: __ DATE:12/02/2019 ATTN: Arlene Haley Please exercise your independent, professional judgment in responding to the clarification form. Clinical indicators are provided on the bottom of this form for your review Please check appropriate box(es): [ ] Sepsis due to Pneumonia [ ] SIRS due to non-infectious process : Pulmonary Fibrosis exacerbation [ ] with organ dysfunction [ ] without organ dysfunction [ ] Severe sepsis with acute organ dysfunction of: (Examples: respiratory failure, encephalopathy, acute kidney failure, other) [ ] Septic Shock [ X ] Localized infection without sepsis [ ] Other diagnosis [ ] Unable to determine In addition, please specify: Present on Admission (POA): [ ] Yes [ ] No [ ] Unable to determine For continuity of documentation, please document condition throughout progress notes and discharge summary. Thank You. CLINICAL INDICATORS - SIGNS / SYMPTOMS / LABS Laboratory 11/26 9.8; 12.9, Plt count 161, Neutrophils 59.7, Lactic Acid 1.5 Vital signs 11/26 BP 123/66, pulse 100, Resp 42, Temp 98.3 ED note p2 SIRS scoring: Pt did meet 2 criteria Chest Xray 11/26 Impression : high grade pulmonary fibrosis with possible Lingular Pneumonia H&P p1 4 Dr Jacobs presented to ER with cough for the past five days H&P p4 4 Dr Jacobs Acute hypoxic respiratory failure secondary to Pneumonia vs Pulmonary fibrosis RISK FACTORS H&P p1 4/ 69 year-old male H&P p1 4/ pulmonary Fibrosis secondary to Bleomycin H&P p1 4 Hx of Hodgkin's Lymphoma, in remission H&P p1 11/26 HTN H&P p2 11/26 Former Smoker TREATMENTS: Respiratory panel 11/26 Oxygen 4L via nasal cannula OCT 29 IV Vancomycin 1gm Oct 29 IV Cefepime OCT 29 IV Levofloxacin 750ng OCT 29 IV Sole-Medrol 125mg OCT 29 Ventolin 2.5mg neb OCT 29 Valtrex 500mg oral Blood Culture ordered 11/26 Sepsis protocol per ED Pulmonology consult 11/27 Dr Hair Calixto Isolation ordered 11/26 Chest Xray 11/26 (This form is maintained as a part of the permanent medical record) 2014 [employer] All Rights Reserved [email or web address]
--- NOTE | 2019-12-03 14:44 | EKG ---
Test Reason : SOB Blood Pressure : / mmHG Vent. Rate : 095 BPM Atrial Rate : 095 BPM P-R Int : 134 ms QRS Dur : 090 ms QT Int : 340 ms P-R-T Axes : 054 053 011 degrees QTc Int : 427 ms Normal sinus rhythm Normal ECG Confirmed by LAURITA PEARCE, SHLOMO ([id number]), manager editorial ARISTEO PITTS ([id number]) on 12/03/2019 2:44:03 PM Referred By: Confirmed By:SHLOMO SHAY MD
[2019-12-10] MEDS ORDERED: PATIENT'S HOME MEDICATION SC SCH (09:00)
== END 2019-11-29 17:48 | disposition home or self-care (01) | DRG 205 ==
LOC: ERS 08:58 → IMCU/EMU 11:31
PROVIDERS: ADMIT Internal Medicine; ATTEND Internal Medicine
PROC: 8E0ZXY6 Isolation (ICD-10-PCS; principal; 2019-11-27)
DX: J70.3 Chronic drug-induced interstitial lung disorders (principal); J96.01 Acute respiratory failure with hypoxia; I50.32 Chronic diastolic (congestive) heart failure; J18.9 Pneumonia, unspecified organism; B34.8 Other viral infections of unspecified site; K21.9 Gastro-esophageal reflux disease without esophagitis; I11.0 Hypertensive heart disease with heart failure; M19.90 Unspecified osteoarthritis, unspecified site; T45.1X5S Adverse effect of antineoplastic and immunosuppressive drugs, sequela; Z87.891 Personal history of nicotine dependence; Z85.71 Personal history of Hodgkin lymphoma; Z79.899 Other long term (current) drug therapy
CPT/HCPCS: 36415; 71045; 80048; 80053; 82550; 83605; 83880; 84484; 85025; 85027; 87040; 87633; 87804; 93005; 94664; 96365; 96366; 96367; 96375; J0692; J1650; J1956; J2920; J2930; J3370; J3475; J3490; J7611; U0001

== ENCOUNTER 2022-03-05 18:02 | Inpatient (IN) | payer MEDICARE, BC ==
[~2022-03-05 18:02] MED LIST changes: -ISOVUE-370 76%-LOCM 1 ML ONE; +Iopamidol-370 76% 500 ML 1 ML ONE
[2022-03-05] MEDS ORDERED: Albuterol Sulfate 2.5 mg/0.5 ml Neb ONE ×2 (18:25→19:42)
[2022-03-05 18:52] LABS: Hemoglobin 14.3 g/dL (14.0-18.0); Mean Corpuscular HGB CONC 31.6 g/dL (32.0-36.0); Mean Corpuscular Hemoglobin 29.2 pg (27.0-31.0); Mean Corpuscular Volume 92.6 fL (78.0-98.0); Mean Platelet Volume 8.6 fL (7.4-10.4); Platelet Count 143 thou/uL (130-400); RBC Distribution Width 13.1 % (11.5-14.5); Red Blood Cell (RBC) Count 4.91 mill/uL (4.70-6.10); White Blood Cell (WBC) Count 9.4 thou/uL (4.8-10.8)
[2022-03-05 19:07] LABS: Band 10 % (5-11); Lymphocytes 35 % (21-51); MDiff Complete? YES; Monocytes 11 % (0-10); Neutrophil 43 % (42-75); Platelet Morphology Comment Appears Adequate; RBC Morphology Normal
[2022-03-05 19:32] LABS: CKMB 0.6 ng/mL (0-6.6)
[2022-03-05] MEDS ORDERED: Acetaminophen 500 MG TAB ONE (19:42)
[2022-03-05] MEDS ORDERED: Lidocaine Viscous Sol 2% 15 ml UD Cup ONE (21:42)
[2022-03-05] MEDS ORDERED: Dexamethasone 4 mg/ml Vial ONE (21:42)
[2022-03-05] MEDS ORDERED: Mag-Al 1200 mg/1200 mg/30 ML UDCUP ONE (21:42)
[2022-03-05 21:43] LABS: ALT (SGPT) 11 U/L (8-55); AST (SGOT) 22 U/L (5-34); Alkaline Phosphatase 54 U/L (40-110); Anion Gap 18 mmol/L (10-20); BUN (Urea Nitrogen) 26 mg/dL (8.4-25.7); Bilirubin, Total 0.3 mg/dL (0.2-1.2); Calc. Creatinine Clearance 0 mL/min (70-130); Calcium 9.2 mg/dL (7.8-10.44); Carbon Dioxide 17 mmol/L (23-31); Chloride 103 mmol/L (98-107); Estimated GFR 48; Globulin 3.4 g/dL (2.4-3.5); Glucose 104 mg/dL (80-115); Potassium 4.2 mmol/L (3.5-5.1); Protein, Total 7.4 g/dL (5.8-8.1); Sodium 134 mmol/L (136-145)
[2022-03-05] MEDS ORDERED: Ondansetron ODT 4 MG TAB PO PRN (21:54)
[2022-03-05] MEDS ORDERED: Senokot S 8.6-50 MG TAB PO PRN (21:54)
[2022-03-05] MEDS ORDERED: Acetaminophen 325 MG TAB PO PRN (21:54)
[2022-03-05] MEDS ORDERED: HYDROcodone/Acetaminophen 5/325 mg Tablet PO PRN (21:54)
[2022-03-05] MEDS ORDERED: Ondansetron PF 4 MG/2 ML Vial IVP PRN (21:54)
[2022-03-05] MEDS ORDERED: Bisacodyl 5 MG TAB PO PRN (21:54)
[2022-03-05 22:02] LABS: Troponin I 0.052 ng/mL (< 0.028)
[2022-03-05] MEDS ORDERED: Sodium Chloride 0.9% 1,000 ML IV SCH (22:30)
[2022-03-05] MEDS ORDERED: Albuterol 200 PUFF (6.7GM INHALER) INH PRN (22:36)
[2022-03-05] MEDS ORDERED: Benzonatate 100 MG CAP PO PRN (22:36)
[2022-03-05 23:17] VITALS: BMI 25.4
[2022-03-06 01:18] LABS: Troponin I 0.155 ng/mL (< 0.028)
[2022-03-06 05:18] LABS: #Lymphocytes 1.2 thou/uL (1.20-3.40); #Monocytes 0.2 thou/uL (0.11-0.59); #Neutrophils 3.2 thou/uL (1.40-6.50); %Basophils 0.7 % (0.0-1.0); %Eosinophils 0.2 % (0.0-10.0); %Lymphocytes 25.6 % (21.0-51.0); %Monocytes 4.2 % (0.0-10.0); %Neutrophils 69.2 % (42.0-75.0); Hemoglobin 14.9 g/dL (14.0-18.0); Mean Corpuscular HGB CONC 30.4 g/dL (32.0-36.0); Mean Corpuscular Hemoglobin 29.1 pg (27.0-31.0); Mean Corpuscular Volume 95.8 fL (78.0-98.0); Mean Platelet Volume 9.2 fL (7.4-10.4); Platelet Count 130 thou/uL (130-400); RBC Distribution Width 13.3 % (11.5-14.5); Red Blood Cell (RBC) Count 5.12 mill/uL (4.70-6.10); White Blood Cell (WBC) Count 4.7 thou/uL (4.8-10.8)
[2022-03-06 05:42] LABS: ALT (SGPT) 11 U/L (8-55); AST (SGOT) 23 U/L (5-34); Albumin 3.8 g/dL (3.4-4.8); Alkaline Phosphatase 58 U/L (40-110); Anion Gap 15 mmol/L (10-20); BUN (Urea Nitrogen) 27 mg/dL (8.4-25.7); Bilirubin, Total 0.3 mg/dL (0.2-1.2); Calc. Creatinine Clearance 59 mL/min (70-130); Calcium 8.9 mg/dL (7.8-10.44); Carbon Dioxide 20 mmol/L (23-31); Chloride 105 mmol/L (98-107); Estimated GFR 52; Globulin 3.2 g/dL (2.4-3.5); Glucose 150 mg/dL (80-115); Potassium 4.2 mmol/L (3.5-5.1); Sodium 136 mmol/L (136-145)
[2022-03-06 06:11] LABS: Troponin I 0.435 ng/mL (< 0.028)
[2022-03-06] MEDS: Sodium Chloride 0.9% 1,000 ML IV SCH ×3 (06:36→15:00)
[2022-03-06 08:48] LABS: Troponin I 0.819 ng/mL (< 0.028)
[2022-03-06] MEDS ORDERED: Heparin 5,000 UNITS/ML VIAL SC SCH (09:00)
[2022-03-06] MEDS ORDERED: Dexamethasone 10 MG/ML VIAL SLOW IVP SCH (09:00)
[2022-03-06] MEDS ORDERED: Dexamethasone 10 MG in Sodium Chloride 0.9% 50 ML IVPB SCH (09:00)
[2022-03-06] MEDS: methylPREDNISolone Sod Succ/PF 125 MG/2 ML VIAL IVP SCH ×2 (11:58→17:42)
[2022-03-06] MEDS: Aspirin 81 mg Enteric Coated Tablet PO SCH (11:58)
[2022-03-06] MEDS ORDERED: REMDESIVIR 200 MG in Sodium Chloride 0.9% 250 ML 210 ML IV SCH (12:00)
[2022-03-06] MEDS: Carvedilol 3.125 MG TAB PO SCH (17:42)
[2022-03-06] MEDS: Sacubitril 49 MG/Valsartan 51 MG TABLET PO SCH (20:05)
[2022-03-06] MEDS ORDERED: Enoxaparin Sodium 100 MG/ML SYRINGE SC SCH (21:00)
[2022-03-07] MEDS: methylPREDNISolone Sod Succ/PF 125 MG/2 ML VIAL IVP SCH (00:03)
[2022-03-07] MEDS: methylPREDNISolone Sod Succ 40 MG VIAL IVP SCH ×4 (00:30→17:15)
[2022-03-07] MEDS: Enoxaparin Sodium 100 MG/ML SYRINGE SC SCH ×2 (09:12→21:55)
[2022-03-07] MEDS: Carvedilol 3.125 MG TAB PO SCH ×2 (09:13→16:07)
[2022-03-07] MEDS: Atorvastatin Calcium 20 MG TAB PO SCH (09:13)
[2022-03-07] MEDS: Aspirin 81 mg Enteric Coated Tablet PO SCH (09:13)
[2022-03-07] MEDS: Sacubitril 49 MG/Valsartan 51 MG TABLET PO SCH ×2 (09:13→21:55)
[2022-03-07] MEDS: REMDESIVIR 100 MG in Sodium Chloride 0.9% 250 ML 230 ML IV SCH (09:14)
[2022-03-07] MEDS: Sodium Chloride 0.9% 1,000 ML IV SCH (09:15)
[2022-03-07] MEDS: Cefepime 2 GM in Sodium Chloride 0.9% 100 ML IVPB SCH (16:07)
[2022-03-08] MEDS: methylPREDNISolone Sod Succ 40 MG VIAL IVP SCH ×5 (01:03→23:49)
[2022-03-08] MEDS: Cefepime 2 GM in Sodium Chloride 0.9% 100 ML IVPB SCH ×2 (03:52→14:38)
[2022-03-08 04:49] LABS: #Lymphocytes 2.1 thou/uL (1.20-3.40); #Monocytes 0.6 thou/uL (0.11-0.59); %Basophils 0.3 % (0.0-1.0); %Eosinophils 0.1 % (0.0-10.0); %Lymphocytes 19.1 % (21.0-51.0); %Monocytes 5.6 % (0.0-10.0); %Neutrophils 74.9 % (42.0-75.0); Hemoglobin 14.2 g/dL (14.0-18.0); Mean Corpuscular Hemoglobin 28.8 pg (27.0-31.0); Mean Corpuscular Volume 92.9 fL (78.0-98.0); Platelet Count 153 thou/uL (130-400); Red Blood Cell (RBC) Count 4.94 mill/uL (4.70-6.10); White Blood Cell (WBC) Count 10.7 thou/uL (4.8-10.8)
[2022-03-08 05:10] LABS: Anion Gap 12 mmol/L (10-20); BUN (Urea Nitrogen) 29 mg/dL (8.4-25.7); Calc. Creatinine Clearance 83 mL/min (70-130); Calcium 9.1 mg/dL (7.8-10.44); Carbon Dioxide 22 mmol/L (23-31); Chloride 112 mmol/L (98-107); Estimated GFR 78; Glucose 113 mg/dL (80-115); Potassium 4.4 mmol/L (3.5-5.1); Sodium 142 mmol/L (136-145)
[2022-03-08] MEDS: Sodium Chloride 0.9% 1,000 ML IV SCH (07:48)
[2022-03-08] MEDS: Sacubitril 49 MG/Valsartan 51 MG TABLET PO SCH ×2 (07:49→20:11)
[2022-03-08] MEDS: Aspirin 81 mg Enteric Coated Tablet PO SCH (07:49)
[2022-03-08] MEDS: Carvedilol 3.125 MG TAB PO SCH ×2 (07:49→17:31)
[2022-03-08] MEDS ORDERED: Empagliflozin 10 MG TAB PO SCH (09:00)
[2022-03-08] MEDS: REMDESIVIR 100 MG in Sodium Chloride 0.9% 250 ML 230 ML IV SCH (09:19)
[2022-03-08] MEDS: Enoxaparin Sodium 40 MG/0.4 ML SYRINGE SC SCH ×2 (09:19→20:11)
[2022-03-08] MEDS ORDERED: Furosemide 40 MG/4 ML VIAL SLOW IVP SCH (13:45)
[2022-03-09] MEDS: Cefepime 2 GM in Sodium Chloride 0.9% 100 ML IVPB SCH ×2 (03:17→16:32)
[2022-03-09 04:56] LABS: #Lymphocytes 1.7 thou/uL (1.20-3.40); #Monocytes 0.5 thou/uL (0.11-0.59); #Neutrophils 6.6 thou/uL (1.40-6.50); %Basophils 0.4 % (0.0-1.0); %Eosinophils 0.1 % (0.0-10.0); %Lymphocytes 18.8 % (21.0-51.0); %Monocytes 5.7 % (0.0-10.0); %Neutrophils 75.1 % (42.0-75.0); Hemoglobin 14.6 g/dL (14.0-18.0); Mean Corpuscular HGB CONC 31.1 g/dL (32.0-36.0); Mean Corpuscular Hemoglobin 28.6 pg (27.0-31.0); Mean Corpuscular Volume 92.2 fL (78.0-98.0); Platelet Count 160 thou/uL (130-400); RBC Distribution Width 13.1 % (11.5-14.5); Red Blood Cell (RBC) Count 5.09 mill/uL (4.70-6.10); White Blood Cell (WBC) Count 8.8 thou/uL (4.8-10.8)
[2022-03-09 05:08] LABS: Anion Gap 14 mmol/L (10-20); BUN (Urea Nitrogen) 33 mg/dL (8.4-25.7); Calc. Creatinine Clearance 77 mL/min (70-130); Calcium 8.9 mg/dL (7.8-10.44); Carbon Dioxide 24 mmol/L (23-31); Chloride 107 mmol/L (98-107); Estimated GFR 71; Glucose 123 mg/dL (80-115); Potassium 4.2 mmol/L (3.5-5.1); Sodium 141 mmol/L (136-145)
[2022-03-09] MEDS: methylPREDNISolone Sod Succ 40 MG VIAL IVP SCH ×3 (05:56→18:44)
[2022-03-09] MEDS ORDERED: Empagliflozin 10 MG TAB PO SCH (09:00)
[2022-03-09] MEDS ORDERED: Furosemide 20 MG TAB PO SCH (09:00)
[2022-03-09] MEDS: Sacubitril 49 MG/Valsartan 51 MG TABLET PO SCH (10:20)
[2022-03-09] MEDS: REMDESIVIR 100 MG in Sodium Chloride 0.9% 250 ML 230 ML IV SCH (10:20)
[2022-03-09] MEDS: Aspirin 81 mg Enteric Coated Tablet PO SCH (10:20)
[2022-03-09] MEDS: Atorvastatin Calcium 20 MG TAB PO SCH (10:21)
[2022-03-09] MEDS: Carvedilol 3.125 MG TAB PO SCH ×2 (10:21→16:32)
[2022-03-09 16:33] VITALS: TEMP 97.3
[2022-03-09 16:36] VITALS: BP 107/59
[2022-03-09] MEDS ORDERED: Enoxaparin Sodium 40 MG/0.4 ML SYRINGE SC SCH (21:00)
== END 2022-03-09 20:29 | disposition home or self-care (01) | DRG 177 ==
LOC: ERS 18:02 → 2SW 21:04 → OBSVTOIN 03-07 10:45
PROVIDERS: ADMIT Internal Medicine; ATTEND Hospitalist
PROC: XW033E5 Introduction of Remdesivir Anti-infective into Peripheral Vein, Percutaneous Approach, New Technology Group 5 (ICD-10-PCS; principal; 2022-03-07)
PROC: 3E0333Z Introduction of Anti-inflammatory into Peripheral Vein, Percutaneous Approach (ICD-10-PCS; 2022-03-07)
PROC: 8E0ZXY6 Isolation (ICD-10-PCS; 2022-03-07)
DX: U07.1 COVID-19 (principal); J12.82 Pneumonia due to coronavirus disease 2019; J96.21 Acute and chronic respiratory failure with hypoxia; I21.4 Non-ST elevation (NSTEMI) myocardial infarction; I50.32 Chronic diastolic (congestive) heart failure; E87.1 Hypo-osmolality and hyponatremia; N17.9 Acute kidney failure, unspecified; J44.1 Chronic obstructive pulmonary disease with (acute) exacerbation; K21.9 Gastro-esophageal reflux disease without esophagitis; I11.0 Hypertensive heart disease with heart failure; J84.10 Pulmonary fibrosis, unspecified; E78.49 Other hyperlipidemia; E78.00 Pure hypercholesterolemia, unspecified; I25.10 Atherosclerotic heart disease of native coronary artery without angina pectoris; M17.12 Unilateral primary osteoarthritis, left knee; I25.5 Ischemic cardiomyopathy; I34.0 Nonrheumatic mitral (valve) insufficiency; Z99.81 Dependence on supplemental oxygen; Z79.899 Other long term (current) drug therapy; Z98.890 Other specified postprocedural states; Z87.891 Personal history of nicotine dependence
CPT/HCPCS: 36415; 71045; 71275; 80048; 80053; 82553; 83880; 84484; 85025; 85379; 85652; 86140; 93005; 93306; 96365; 96372; 96374; 96375; 96376; G0378; J0248; J0692; J1100; J1644; J1650; J1940; J2920; J2930; J3490; J7050; J7611; J7620; Q9967; U0003; U0005

== ENCOUNTER 2023-06-21 08:22 | Outpatient (CLI) | payer MEDICARE, BC | END 2023-06-21 08:23 | disposition home or self-care (01) | LOC: CT 08:22 | PROVIDERS: ATTEND Internal Medicine Critical Care Medicine | DX: J84.9 Interstitial pulmonary disease, unspecified (principal); J84.10 Pulmonary fibrosis, unspecified | CPT/HCPCS: 71250 ==

== ENCOUNTER 2023-08-31 13:12 | Emergency (ER) | payer MEDICARE, BC ==
[2023-08-31 13:57] LABS: #Monocytes 0.9 thou/uL (0.11-0.59); #Neutrophils 4.5 thou/uL (1.40-6.50); %Basophils 0.6 % (0.0-1.0); %Eosinophils 0.4 % (0.0-10.0); %Lymphocytes 24.4 % (21.0-51.0); %Neutrophils 62.3 % (42.0-75.0); Hematocrit 47.6 % (42.0-52.0); Hemoglobin 15.2 g/dL (14.0-18.0); Mean Corpuscular HGB CONC 31.9 g/dL (32.0-36.0); Mean Corpuscular Hemoglobin 28.6 pg (27.0-31.0); Mean Corpuscular Volume 89.5 fl (78.0-98.0); Mean Platelet Volume 10.2 fL (7.4-10.4); Platelet Count 185 10x3/uL (130-400); RBC Distribution Width 12.9 % (11.5-14.5); Red Blood Cell (RBC) Count 5.32 mill/uL (4.70-6.10); White Blood Cell (WBC) Count 7.2 10x3/uL (4.8-10.8)
[2023-08-31] MEDS ORDERED: methylPREDNISolone Sod Succ/PF 125 MG/2 ML VIAL ONE (14:01)
[2023-08-31 14:11] LABS: Prothrombin Time 14.1 sec (12.0-14.7)
[2023-08-31 14:12] LABS: PTT 35.6 sec (22.9-36.1)
[2023-08-31 14:14] LABS: D-Dimer Test 0.46 *mcg/mL (0.27-0.43)
[2023-08-31] MEDS ORDERED: Ipratropium/Albuterol 3 ML NEB ONE ×2 (14:17→15:25)
[2023-08-31 14:19] LABS: ALT (SGPT) 8 U/L (8-55); AST (SGOT) 18 U/L (5-34); Albumin 4.3 g/dL (3.4-4.8); Alkaline Phosphatase 54 U/L (40-110); Anion Gap 11 mmol/L (10-20); BUN (Urea Nitrogen) 14 mg/dL (8.4-25.7); Bilirubin, Total 0.5 mg/dL (0.2-1.2); Calc. Creatinine Clearance 0 mL/min (70-130); Calcium 9.8 mg/dL (7.8-10.44); Carbon Dioxide 29 mmol/L (23-31); Chloride 102 mmol/L (98-107); Estimated GFR 76; Globulin 3.9 g/dL (2.4-3.5); Glucose 83 mg/dL (83-110); Potassium 4.2 mmol/L (3.5-5.1); Protein, Total 8.2 g/dL (5.8-8.1); Sodium 138 mmol/L (136-145)
[2023-08-31 15:06] LABS: SARS-CoV-2 NAA Rapid Test Not Detected (NotDetected)
[2023-08-31 15:31] LABS: Actual Bicarbonate (HCO3v) 28.6 mEq/L (22-28); Base Excess 0.9 mEq/L (-2.0 to +3.0); Calcium, Ionized (venous) 1.21 mmol/L (1.16-1.32); Chloride (VBG) 100 mmol/L (98-106); Hematocrit-VBG 47 % (42.0-52.0); Potassium (VBG) 4.16 mmol/L (3.70-5.30); Sodium 140 mmol/L (133-146); pH (venous) 7.314 (7.32-7.43)
[2023-08-31] MEDS ORDERED: cefTRIAXone (ROCEPHIN) 1 GM VIAL ONE (16:29)
[2023-08-31] MEDS ORDERED: Azithromycin 500 MG VIAL ONE (16:32)
== END 2023-08-31 17:47 | disposition home or self-care (01) ==
LOC: ERS 13:12
DX: J18.9 Pneumonia, unspecified organism (principal); J84.10 Pulmonary fibrosis, unspecified; I11.0 Hypertensive heart disease with heart failure; I50.9 Heart failure, unspecified; J44.9 Chronic obstructive pulmonary disease, unspecified; K21.9 Gastro-esophageal reflux disease without esophagitis; E78.00 Pure hypercholesterolemia, unspecified; Z79.82 Long term (current) use of aspirin; Z87.891 Personal history of nicotine dependence; Z79.899 Other long term (current) drug therapy
CPT/HCPCS: 0240U; 71045; 80053; 82805; 85025; 85379; 85610; 85730; 93005; 94640 ×2; 94760; 96361; 96365; 96375; 99285; J0456; J0696; J2930; J7620

== ENCOUNTER 2024-06-20 08:23 | Outpatient (CLI) | payer MEDICARE, BC | END 2024-06-20 08:24 | disposition home or self-care (01) | LOC: CT 08:23 | PROVIDERS: ATTEND Internal Medicine Critical Care Medicine | DX: J84.10 Pulmonary fibrosis, unspecified (principal) | CPT/HCPCS: 71250 ==

== ENCOUNTER 2025-05-06 13:09 | Inpatient (IN) | payer MEDICARE, BC ==
[2025-05-06 13:44] LABS: #Basophils 0.03 10x3/uL (0.0-0.2); #Eosinophils 0.16 10x3/uL (0.0-0.7); #Monocytes 0.73 10x3/uL (0.11-0.59); #Neutrophils 4.17 10x3/uL (1.40-6.50); %Basophils 0.4 % (0.0-1.0); %Eosinophils 2.2 % (0.0-10.0); %Lymphocytes 28.2 % (21.0-51.0); %Monocytes 10.3 % (0.0-10.0); %Neutrophils 58.6 % (42.0-75.0); Hematocrit 47.4 % (42.0-52.0); Hemoglobin 12.7 g/dL (14.0-18.0); Mean Corpuscular Hemoglobin 26.6 pg (27.0-31.0); Mean Corpuscular Volume 99.4 fL (78.0-98.0); Platelet Count 149 10x3/uL (130-400); Red Blood Cell (RBC) Count 4.77 mill/uL (4.70-6.10); White Blood Cell (WBC) Count 7.12 10x3/uL (4.8-10.8)
[2025-05-06 13:55] LABS: Lipase 18 U/L (8-78)
[2025-05-06 13:57] LABS: Acetaminophen Less than 10 mcg/mL (Less than 10); Salicylate Less than 8.0 mg/dL (Less than 8.0)
[2025-05-06 13:58] LABS: ALT (SGPT) 7 U/L (Less than 45); AST (SGOT) 18 U/L (11-34); Albumin 3.7 g/dL (3.1-4.5); Alkaline Phosphatase 59 U/L (40-110); Anion Gap 12 mmol/L (10-20); BUN (Urea Nitrogen) 17 mg/dL (8.4-25.7); Bilirubin, Total 0.4 mg/dL (0.3-1.2); Calc. Creatinine Clearance 0 mL/min (70-130); Calcium 9.8 mg/dL (7.8-10.44); Carbon Dioxide 45 mmol/L (23-31); Chloride 92 mmol/L (98-107); Globulin 3.7 g/dL (2.4-3.5); Glucose 80 mg/dL (83-110); Potassium 4.0 mmol/L (3.5-5.1); Sodium 145 mmol/L (136-145)
[2025-05-06 14:08] LABS: Anisocytosis SLIGHT = 6-15 cells HPF (0-5); Ovalocytes SLIGHT = 2-5 cells HPF (0-1); Platelet Adequacy Comment Platelets Normal; Polychromasia SLIGHT = 2-3 cells HPF (0-2); Stomatocytes SLIGHT = 2-5 cells HPF (0-1)
[2025-05-06 14:46] LABS: Base Excess 16.6 mEq/L (-2.0 to +3.0); Hematocrit-VBG 39 % (42.0-52.0); Hemoglobin (Hb) 13.4 g/dL (12.6-17.4)
[2025-05-06 14:47] LABS: Calcium, Ionized (venous) 1.10 mmol/L (1.16-1.32); Chloride (VBG) 94 mmol/L (98-106); Potassium (VBG) 4.27 mmol/L (3.70-5.30); Sodium 143 mmol/L (133-146)
[2025-05-06] MEDS ORDERED: Furosemide 40 MG (4 mL) VIAL ONE (15:40)
[2025-05-06] MEDS ORDERED: Acetaminophen 325 MG TAB PO PRN (15:49)
[2025-05-06 16:21] LABS: Cocaine Metabolite Screen Negative (Negative); THC/Cannabinoid Screen Negative (Negative); Tricyclic Screen Negative (Negative)
[2025-05-06 16:40] LABS: Bacteria/HPF None Seen HPF (None Seen); CAUTI Indications for Culture Pelvic or flank pain; Glucose, Urine (Dipstick) 300 mg/dL (Negative); Leukocyte Negative Leu/uL (Negative); Protein, Urine (Dipstick) 20 mg/dL (Neg-Trace); Specific Gravity, Urine 1.014 (1.002-1.036); WBC/HPF 0-3 HPF (0-3)
[2025-05-06 16:57] LABS: Urine Culture Reflex No No
[2025-05-06] MEDS ORDERED: cefTRIAXone (ROCEPHIN) 1 GM VIAL ONE (18:04)
[2025-05-06] MEDS: cefTRIAXone\\ROCEPHIN 1 GM in Sodium Chloride 0.9% 100 ML IVPB SCH (18:10)
[2025-05-06] MEDS ORDERED: Azithromycin 500 MG VIAL ONE (19:23)
[2025-05-06] MEDS: Azithromycin 500 MG in Sodium Chloride 0.9% 250 ML 250 ML IVPB SCH (19:34)
[2025-05-06] MEDS: Pantoprazole 40 MG VIAL IVP SCH (21:46)
[2025-05-06] MEDS: Aspirin 81 mg Enteric Coated Tablet PO SCH (23:51)
[2025-05-07 03:09] LABS: #Basophils 0.03 10x3/uL (0.0-0.2); #Eosinophils 0.08 10x3/uL (0.0-0.7); #Monocytes 0.26 10x3/uL (0.11-0.59); #Neutrophils 4.39 10x3/uL (1.40-6.50); %Basophils 0.5 % (0.0-1.0); %Eosinophils 1.4 % (0.0-10.0); %Lymphocytes 16.8 % (21.0-51.0); %Monocytes 4.5 % (0.0-10.0); %Neutrophils 76.6 % (42.0-75.0); Hematocrit 44.7 % (42.0-52.0); Hemoglobin 12.8 g/dL (14.0-18.0); Mean Corpuscular Hemoglobin 26.9 pg (27.0-31.0); Mean Corpuscular Volume 94.1 fL (78.0-98.0); Platelet Count 131 10x3/uL (130-400); Red Blood Cell (RBC) Count 4.75 mill/uL (4.70-6.10); White Blood Cell (WBC) Count 5.73 10x3/uL (4.8-10.8)
[2025-05-07 03:36] LABS: Anion Gap 12 mmol/L (10-20); BUN (Urea Nitrogen) 18 mg/dL (8.4-25.7); Calc. Creatinine Clearance 107 mL/min (70-130); Calcium 9.5 mg/dL (7.8-10.44); Carbon Dioxide 40 mmol/L (23-31); Cardiac Risk 1.9 (Less than 4.5); Chloride 92 mmol/L (98-107); Cholesterol 118 mg/dl (< 200 Desired); Glucose 87 mg/dL (83-110); HDL Cholesterol 62 mg/dL (>60 Neg Risk); LDL Cholesterol, Calculated 42 mg/dL; Potassium 4.0 mmol/L (3.5-5.1); Sodium 140 mmol/L (136-145); Triglycerides 70 mg/dL (Less than 150)
[2025-05-07] MEDS: Furosemide 40 MG (4 mL) VIAL SLOW IVP SCH (05:20)
[2025-05-07] MEDS: Enoxaparin 40 MG (0.4 mL) SYRINGE SC SCH (09:09)
[2025-05-07] MEDS: Pantoprazole 40 MG VIAL IVP SCH (09:10)
[2025-05-07] MEDS: Aspirin 81 mg Enteric Coated Tablet PO SCH (09:10)
[2025-05-07] MEDS: Nystatin 500,000 UNITS/5 ML UDCUP SSW SCH (09:10)
[2025-05-07 09:40] LABS: Actual Bicarbonate (HCO3v) 44.4 mEq/L (22-28)
[2025-05-07] MEDS ORDERED: Electrolyte Replacement Protocol 1 EACH FS SCH (09:45)
[2025-05-08 04:51] LABS: Base Excess 14.9 mEq/L (-2.0 to +3.0); Calcium, Ionized (venous) 1.13 mmol/L (1.16-1.32); Chloride (VBG) 92 mmol/L (98-106); Hematocrit-VBG 41 % (42.0-52.0); Hemoglobin (Hb) 14.1 g/dL (12.6-17.4); Potassium (VBG) 4.19 mmol/L (3.70-5.30); Sodium 142 mmol/L (133-146)
[2025-05-08 04:52] LABS: Actual Bicarbonate (HCO3v) 42.3 mEq/L (22-28)
[2025-05-08 05:03] LABS: #Basophils Less than 0.03 10x3/uL (0.0-0.2); #Eosinophils Less than 0.03 10x3/uL (0.0-0.7); #Monocytes 0.39 10x3/uL (0.11-0.59); #Neutrophils 8.39 10x3/uL (1.40-6.50); %Basophils 0.1 % (0.0-1.0); %Eosinophils 0.0 % (0.0-10.0); %Lymphocytes 9.9 % (21.0-51.0); %Monocytes 4.0 % (0.0-10.0); %Neutrophils 85.7 % (42.0-75.0); Hematocrit 44.7 % (42.0-52.0); Hemoglobin 13.1 g/dL (14.0-18.0); Mean Corpuscular Hemoglobin 27.0 pg (27.0-31.0); Mean Corpuscular Volume 92.2 fL (78.0-98.0); Platelet Count 147 10x3/uL (130-400); Red Blood Cell (RBC) Count 4.85 mill/uL (4.70-6.10); White Blood Cell (WBC) Count 9.79 10x3/uL (4.8-10.8)
[2025-05-08] MEDS: Nitroglycerin 0.4 MG TAB (25 Tab Bottle) SL PRN (05:27)
[2025-05-08 05:29] LABS: Anion Gap 12 mmol/L (10-20); BUN (Urea Nitrogen) 35 mg/dL (8.4-25.7); Calc. Creatinine Clearance 77 mL/min (70-130); Calcium 10.2 mg/dL (7.8-10.44); Carbon Dioxide 44 mmol/L (23-31); Chloride 93 mmol/L (98-107); Glucose 117 mg/dL (83-110); Magnesium 2.1 mg/dL (1.6-2.6); Potassium 4.3 mmol/L (3.5-5.1); Sodium 145 mmol/L (136-145)
[2025-05-08] MEDS: Senokot S 8.6-50 MG TAB PO SCH (20:03)
[2025-05-09 04:58] LABS: #Basophils Less than 0.03 10x3/uL (0.0-0.2); #Eosinophils Less than 0.03 10x3/uL (0.0-0.7); #Monocytes 0.23 10x3/uL (0.11-0.59); #Neutrophils 9.78 10x3/uL (1.40-6.50); %Basophils 0.1 % (0.0-1.0); %Eosinophils 0.0 % (0.0-10.0); %Lymphocytes 8.5 % (21.0-51.0); %Monocytes 2.1 % (0.0-10.0); %Neutrophils 88.9 % (42.0-75.0); Hematocrit 44.0 % (42.0-52.0); Hemoglobin 12.8 g/dL (14.0-18.0); Mean Corpuscular Hemoglobin 27.2 pg (27.0-31.0); Mean Corpuscular Volume 93.6 fL (78.0-98.0); Platelet Count 160 10x3/uL (130-400); Red Blood Cell (RBC) Count 4.70 mill/uL (4.70-6.10); White Blood Cell (WBC) Count 10.99 10x3/uL (4.8-10.8)
[2025-05-09 05:10] LABS: Anion Gap 13 mmol/L (10-20); BUN (Urea Nitrogen) 47 mg/dL (8.4-25.7); Calc. Creatinine Clearance 77 mL/min (70-130); Calcium 10.2 mg/dL (7.8-10.44); Carbon Dioxide 42 mmol/L (23-31); Chloride 93 mmol/L (98-107); Glucose 124 mg/dL (83-110); Magnesium 2.3 mg/dL (1.6-2.6); Potassium 4.3 mmol/L (3.5-5.1); Sodium 144 mmol/L (136-145)
[2025-05-09] MEDS: Multivit, Therapeutic 1 TAB PO SCH (07:42)
[2025-05-09] MEDS: Ondansetron PF 4 MG/2 ML Vial IVP PRN (10:34)
[2025-05-09] MEDS: Famotidine/PF 20 mg/2ml Vial SLOW IVP SCH (13:41)
[2025-05-09] MEDS: NOREPINEPHRINE 8 MG/250 ML-D5W 250 ML ONE (13:41)
[2025-05-09 13:43] LABS: #Basophils Less than 0.03 10x3/uL (0.0-0.2); #Eosinophils Less than 0.03 10x3/uL (0.0-0.7); #Monocytes 0.97 10x3/uL (0.11-0.59); #Neutrophils 10.49 10x3/uL (1.40-6.50); %Basophils 0.1 % (0.0-1.0); %Eosinophils 0.1 % (0.0-10.0); %Lymphocytes 23.2 % (21.0-51.0); %Monocytes 6.5 % (0.0-10.0); %Neutrophils 69.9 % (42.0-75.0); Hematocrit 47.3 % (42.0-52.0); Hemoglobin 13.2 g/dL (14.0-18.0); Mean Corpuscular Hemoglobin 27.0 pg (27.0-31.0); Mean Corpuscular Volume 96.7 fL (78.0-98.0); Platelet Count 158 10x3/uL (130-400); Red Blood Cell (RBC) Count 4.89 mill/uL (4.70-6.10); White Blood Cell (WBC) Count 14.99 10x3/uL (4.8-10.8)
[2025-05-09] MEDS: NOREPINEPHRINE 8 MG/250 ML-D5W 250 ML IVPB SCH (13:50)
[2025-05-09] MEDS ORDERED: Ventilator Sedation Protocol 1 EACH FS PRN (14:00)
[2025-05-09] MEDS ORDERED: Fentanyl BOLUS 100 ML IVPB PRN (14:00)
[2025-05-09] MEDS ORDERED: Propofol BOLUS 1,000 MG/100 ML VIAL IV PRN (14:00)
[2025-05-09 14:05] LABS: ALT (SGPT) 34 U/L (Less than 45); AST (SGOT) 43 U/L (11-34); Albumin 3.5 g/dL (3.1-4.5); Alkaline Phosphatase 54 U/L (40-110); Anion Gap 16 mmol/L (10-20); BUN (Urea Nitrogen) 50 mg/dL (8.4-25.7); Bilirubin, Total 0.2 mg/dL (0.3-1.2); Calc. Creatinine Clearance 65 mL/min (70-130); Calcium 10.1 mg/dL (7.8-10.44); Carbon Dioxide 36 mmol/L (23-31); Chloride 97 mmol/L (98-107); Globulin 3.6 g/dL (2.4-3.5); Glucose 158 mg/dL (83-110); Potassium 4.5 mmol/L (3.5-5.1); Sodium 144 mmol/L (136-145)
[2025-05-09] MEDS ORDERED: NOREPINEPHRINE 8 MG/250 ML-D5W 250 ML IVPB SCH (15:15)
[2025-05-09] MEDS: Mupirocin 1 GM TUBE NASAL DECOLONIZATION TP SCH (15:26)
[2025-05-09 15:35] LABS: Actual Bicarbonate (HCO3a) 45.4 mEq/L (22-28); Base Excess (BEa) 16.3 mEq/L (-2.0 to +3.0); Calcium, Ionized (arterial) 1.26 mmol/L (1.12-1.30); Hematocrit-ABG 40 % (42.0-52.0); Hemoglobin (Hb) 13.5 g/dL (14.0-18.0); Potassium - ABG Lab 4.53 mmol/L (3.70-5.30); pH, Arterial 7.382 (7.35-7.45)
[2025-05-09 16:11] LABS: ALV-art Gradient 204.450 mmHg (0-20); CO2 Tension 78.2 mmHg (35.0-45.0); O2 Tension (PaO2), arterial 54.3 mmHg (> 70.0); Puncture Site Left Radial artery
[2025-05-09] MEDS: Senokot S 8.6-50 MG TAB PER TUBE SCH (20:14)
[2025-05-09] MEDS: Mupirocin 1 GM TUBE NASAL DECOLOIZATION TP SCH (20:14)
[2025-05-10 05:20] LABS: #Basophils Less than 0.03 10x3/uL (0.0-0.2); #Eosinophils Less than 0.03 10x3/uL (0.0-0.7); #Monocytes 0.70 10x3/uL (0.11-0.59); #Neutrophils 12.79 10x3/uL (1.40-6.50); %Basophils 0.1 % (0.0-1.0); %Eosinophils 0.1 % (0.0-10.0); %Lymphocytes 5.6 % (21.0-51.0); %Monocytes 4.9 % (0.0-10.0); %Neutrophils 88.7 % (42.0-75.0); Hematocrit 41.4 % (42.0-52.0); Hemoglobin 11.8 g/dL (14.0-18.0); Mean Corpuscular Hemoglobin 26.9 pg (27.0-31.0); Mean Corpuscular Volume 94.5 fL (78.0-98.0); Platelet Count 171 10x3/uL (130-400); Red Blood Cell (RBC) Count 4.38 mill/uL (4.70-6.10); White Blood Cell (WBC) Count 14.40 10x3/uL (4.8-10.8)
[2025-05-10 05:29] LABS: Anion Gap 13 mmol/L (10-20); BUN (Urea Nitrogen) 63 mg/dL (8.4-25.7); Calc. Creatinine Clearance 57 mL/min (70-130); Calcium 9.7 mg/dL (7.8-10.44); Carbon Dioxide 43 mmol/L (23-31); Chloride 93 mmol/L (98-107); Glucose 143 mg/dL (83-110); Potassium 4.7 mmol/L (3.5-5.1); Sodium 144 mmol/L (136-145)
[2025-05-10] MEDS: Famotidine/PF 20 mg/2ml Vial SLOW IVP SCH (09:01)
[2025-05-10] MEDS: Multivit, Therapeutic 1 TAB PER TUBE SCH (09:01)
[2025-05-10] MEDS: Aspirin Chewable 81 MG TAB PER TUBE SCH (09:01)
[2025-05-10] MEDS: Artificial Tear Ophth Sol 15 ML BOT EA EYE PRN (17:09)
[2025-05-11 04:36] LABS: #Basophils Less than 0.03 10x3/uL (0.0-0.2); #Eosinophils Less than 0.03 10x3/uL (0.0-0.7); #Monocytes 0.44 10x3/uL (0.11-0.59); #Neutrophils 7.55 10x3/uL (1.40-6.50); %Basophils 0.0 % (0.0-1.0); %Eosinophils 0.0 % (0.0-10.0); %Lymphocytes 9.9 % (21.0-51.0); %Monocytes 4.9 % (0.0-10.0); %Neutrophils 84.8 % (42.0-75.0); Hematocrit 37.0 % (42.0-52.0); Hemoglobin 10.8 g/dL (14.0-18.0); Mean Corpuscular Hemoglobin 27.2 pg (27.0-31.0); Mean Corpuscular Volume 93.2 fL (78.0-98.0); Platelet Count 131 10x3/uL (130-400); Red Blood Cell (RBC) Count 3.97 mill/uL (4.70-6.10); White Blood Cell (WBC) Count 8.91 10x3/uL (4.8-10.8)
[2025-05-11 04:52] LABS: ALT (SGPT) 66 U/L (Less than 45); AST (SGOT) 62 U/L (11-34); Albumin 2.9 g/dL (3.1-4.5); Alkaline Phosphatase 49 U/L (40-110); Anion Gap 9 mmol/L (10-20); BUN (Urea Nitrogen) 49 mg/dL (8.4-25.7); Bilirubin, Total 0.3 mg/dL (0.3-1.2); Calc. Creatinine Clearance 79 mL/min (70-130); Calcium 9.3 mg/dL (7.8-10.44); Carbon Dioxide 44 mmol/L (23-31); Chloride 95 mmol/L (98-107); Globulin 3.1 g/dL (2.4-3.5); Glucose 116 mg/dL (83-110); Potassium 4.5 mmol/L (3.5-5.1); Sodium 143 mmol/L (136-145)
[2025-05-11] MEDS: Acetaminophen 325 MG TAB PER TUBE PRN (09:50)
[2025-05-11] MEDS: Acetaminophen 325 MG TAB PO PRN (13:42)
[2025-05-11] MEDS: NOREPINEPHRINE 8 MG/250 ML-D5W 250 ML ONE (13:44)
[2025-05-11] MEDS: Senokot S 8.6-50 MG TAB PO SCH (21:47)
[2025-05-12 06:29] LABS: #Basophils Less than 0.03 10x3/uL (0.0-0.2); #Eosinophils Less than 0.03 10x3/uL (0.0-0.7); #Monocytes 0.66 10x3/uL (0.11-0.59); #Neutrophils 7.43 10x3/uL (1.40-6.50); %Basophils 0.1 % (0.0-1.0); %Eosinophils 0.1 % (0.0-10.0); %Lymphocytes 11.7 % (21.0-51.0); %Monocytes 7.1 % (0.0-10.0); %Neutrophils 80.5 % (42.0-75.0); Hematocrit 39.4 % (42.0-52.0); Hemoglobin 11.4 g/dL (14.0-18.0); Mean Corpuscular Hemoglobin 27.0 pg (27.0-31.0); Mean Corpuscular Volume 93.1 fL (78.0-98.0); Platelet Count 133 10x3/uL (130-400); Red Blood Cell (RBC) Count 4.23 mill/uL (4.70-6.10); White Blood Cell (WBC) Count 9.24 10x3/uL (4.8-10.8)
[2025-05-12 06:45] LABS: ALT (SGPT) 54 U/L (Less than 45); AST (SGOT) 50 U/L (11-34); Albumin 3.1 g/dL (3.1-4.5); Alkaline Phosphatase 49 U/L (40-110); Anion Gap 14 mmol/L (10-20); BUN (Urea Nitrogen) 45 mg/dL (8.4-25.7); Bilirubin, Total 0.4 mg/dL (0.3-1.2); Calc. Creatinine Clearance 79 mL/min (70-130); Calcium 9.1 mg/dL (7.8-10.44); Carbon Dioxide 37 mmol/L (23-31); Chloride 98 mmol/L (98-107); Globulin 3.0 g/dL (2.4-3.5); Glucose 104 mg/dL (83-110); Potassium 4.7 mmol/L (3.5-5.1); Sodium 144 mmol/L (136-145)
[2025-05-12] MEDS: Aspirin Chewable 81 MG TAB PO SCH (09:20)
[2025-05-12] MEDS: Multivit, Therapeutic 1 TAB PO SCH (09:20)
[2025-05-12] MEDS: Sacubitril 24MG/Valsartan 26 MG TAB PO SCH (09:23)
[2025-05-13 03:57] LABS: #Basophils Less than 0.03 10x3/uL (0.0-0.2); #Eosinophils Less than 0.03 10x3/uL (0.0-0.7); #Monocytes 0.62 10x3/uL (0.11-0.59); #Neutrophils 8.87 10x3/uL (1.40-6.50); %Basophils 0.0 % (0.0-1.0); %Eosinophils 0.1 % (0.0-10.0); %Lymphocytes 7.2 % (21.0-51.0); %Monocytes 6.0 % (0.0-10.0); %Neutrophils 86.0 % (42.0-75.0); Hematocrit 38.5 % (42.0-52.0); Hemoglobin 11.4 g/dL (14.0-18.0); Mean Corpuscular Hemoglobin 27.0 pg (27.0-31.0); Mean Corpuscular Volume 91.0 fL (78.0-98.0); Platelet Count 163 10x3/uL (130-400); Red Blood Cell (RBC) Count 4.23 mill/uL (4.70-6.10); White Blood Cell (WBC) Count 10.31 10x3/uL (4.8-10.8)
[2025-05-13] MEDS: Spironolactone 25 MG TAB PO SCH (09:02)
[2025-05-13] MEDS: Famotidine/PF 20 mg/2ml Vial SLOW IVP SCH (20:52)
[2025-05-14] MEDS: Spironolactone 25 MG TAB PO SCH (10:50)
[2025-05-14 12:03] VITALS: BMI 22.6
[2025-05-14] MEDS ORDERED: Communication Order-Pharmacy FS SCH (13:30)
[2025-05-15 04:45] LABS: Anion Gap 13 mmol/L (10-20); BUN (Urea Nitrogen) 41 mg/dL (8.4-25.7); Calc. Creatinine Clearance 79 mL/min (70-130); Calcium 9.0 mg/dL (7.8-10.44); Carbon Dioxide 29 mmol/L (23-31); Chloride 103 mmol/L (98-107); Glucose 113 mg/dL (83-110); Potassium 4.9 mmol/L (3.5-5.1); Sodium 140 mmol/L (136-145)
[2025-05-15 06:19] VITALS: BMI 20.9
[2025-05-15] MEDS ORDERED: Lidocaine 1% (PF) 30 ML VIAL ONE (06:54)
[2025-05-15] MEDS ORDERED: Heparin 10,000 UNITS/ 10 ML VIAL ONE (06:54)
[2025-05-15 11:26] LABS: SARS-CoV-2 E Target Negative; SARS-CoV-2 N2 Target Negative; SARS-CoV-2 NAA Rapid Test Not Detected (NotDetected); SARS-CoV-2 RdRP gene Negative
[2025-05-15 17:43] VITALS: BP 104/62; TEMP 97.1
== END 2025-05-15 18:50 | disposition short-term general hospital (02) | DRG 280 ==
LOC: ERS 13:09 → ERHOLD 15:49 → IMCU/EMU 19:59 → CCU 05-09 13:58 → PCU 05-12 16:40
PROVIDERS: ADMIT Internal Medicine; ATTEND Internal Medicine
PROC: 4A023N7 Measurement of Cardiac Sampling and Pressure, Left Heart, Percutaneous Approach (ICD-10-PCS; principal; 2025-05-06)
PROC: B2111ZZ Fluoroscopy of Multiple Coronary Arteries using Low Osmolar Contrast (ICD-10-PCS; 2025-05-06)
PROC: B2151ZZ Fluoroscopy of Left Heart using Low Osmolar Contrast (ICD-10-PCS; 2025-05-06)
DX: I11.0 Hypertensive heart disease with heart failure (principal); E43 Unspecified severe protein-calorie malnutrition; I21.A1 Myocardial infarction type 2; G93.41 Metabolic encephalopathy; I50.33 Acute on chronic diastolic (congestive) heart failure; J96.21 Acute and chronic respiratory failure with hypoxia; J96.22 Acute and chronic respiratory failure with hypercapnia; R57.0 Cardiogenic shock; I46.2 Cardiac arrest due to underlying cardiac condition; J44.1 Chronic obstructive pulmonary disease with (acute) exacerbation; J93.9 Pneumothorax, unspecified; C81.90 Hodgkin lymphoma, unspecified, unspecified site; Z51.5 Encounter for palliative care; J20.9 Acute bronchitis, unspecified; K21.9 Gastro-esophageal reflux disease without esophagitis; J84.10 Pulmonary fibrosis, unspecified; G47.33 Obstructive sleep apnea (adult) (pediatric); I51.3 Intracardiac thrombosis, not elsewhere classified; Z79.82 Long term (current) use of aspirin; I48.0 Paroxysmal atrial fibrillation
CPT/HCPCS: 36415; 36416; 36600; 70450; 71045; 71250; 74018; 78452; 80048; 80053; 80061; 80306; 80307; 81001; 82140; 82805; 83690; 83735; 83880; 84100; 84443; 84484; 85025; 93005; 93010; 93017; 93306; 93458; 93798; 94002; 94003; 94640; 94760; 96374; 97139; 99152; 99153; A9502; C1769; C1887; J0282; J0456; J0696; J1644; J1650; J1940; J2250; J2405; J2470; J2785; J2919; J3010; J7050; J7070; J7120; J7620; J7626; U0002